=== PATIENT | female | born 1940 | race Caucasian/White ===

== ENCOUNTER 2023-11-21 12:08 | Outpatient (CLI) | payer MEDICARE, SELFPAY ==
[2023-11-21 12:24] LABS: Basophils Absolute Auto 0.1 K/mm3 (0.0-0.1); Basophils Percent Auto 0.8 % (0.2-1.2); Eosinophils Absolute Auto 0.2 K/mm3 (0-0.3); Eosinophils Percent Auto 2.6 % (0-4.4); Hematocrit 35.7 % (37.0-47.0); Hemoglobin 11.3 g/dL (12.0-15.0); Immature Granulocyte Absolute 0.01 K/mm3 (0.00-0.031); Immature Granulocyte Percent A 0.2 % (0-0.5); Immature Reticulocyte Fraction 8.3 % (3.0-15.9); Lymphocytes Absolute Auto 1.95 K/mm3 (0.9-3.2); Lymphocytes Percent Auto 31.6 % (18.3-44.2); Mean Corpuscular HGB Conc 31.7 g/dl (32-36); Mean Corpuscular Hemoglobin 30.6 pg (26-34); Mean Corpuscular Volume 96.7 fl (80-100); Mean Platelet Volume 9.5 fl (7.4-10.4); Monocytes Absolute Auto 0.5 K/mm3 (0.1-0.6); Monocytes Percent Auto 7.5 % (2.6-8.5); Neutrophils Absolute Auto 3.5 K/mm3 (1.3-6.7); Neutrophils Percent Auto 57.3 % (45.5-73.1); Platelet Count Result 237 k/mm3 (150-375); Red Blood Count 3.69 M/mm3 (4.2-5.4); Red Cell Distribution Width 14.4 % (11.5-14.5); Reticulocyte Hemoglobin Conten 34.3 pg (28.2-36.6); Reticulocyte Percent 1.17 % (0.7-4.3); Reticulocytes Absolute 0.04 10^6/uL (0.02-0.10); White Blood Count 6.2 K/mm3 (4.5-10.0)
[2023-11-21 18:08] LABS: Alanine Aminotransferase 15 U/L (6-35); Albumin Level 3.6 g/dL (3.5-5.1); Alkaline Phosphatase 77 U/L (38-126); Anion Gap 6 mmol/L (8-16); Aspartate Amino Transferase 25 U/L (14-36); Bilirubin,Total 0.3 mg/dL (0.2-1.3); Blood Urea Nitrogen 14 mg/dL (7-17); Calcium 8.8 mg/dL (8.4-10.2); Carbon Dioxide 23 mmol/L (22-30); Chloride 111 mmol/L (98-107); Estimated Glomerular Filt Rate 53; Glucose 76 mg/dL (65-110); Lactate Dehydrogenase 183 U/L (120-246); Sodium 140 mmol/L (137-145)
[2023-11-23 14:46] LABS: Folic Acid > 20.0 ng/mL (2.76->20)
[2023-11-23 15:22] LABS: Iron 78 ug/dL (37-170)
[2023-11-23 15:32] LABS: Percent Iron Saturation 24 % (20-50)
[2023-11-25 03:27] LABS: Methylmalonic Acid 247 nmol/L (87-318)
[2023-11-26 21:33] LABS: Haptoglobin 105 mg/dL (43-212)
[2023-11-29 09:52] LABS: Soluble Transferrin Receptor 1.23 mg/L (0.76-1.76)
== END 2023-11-21 12:09 | disposition home or self-care (01) ==
LOC: ANHLAB 12:11
PROVIDERS: Nurse Practitioner Family; Visit Provider Internal Medicine Hematology & Oncology
DX: D64.9 Anemia, unspecified (principal)
CPT/HCPCS: 36415; 80053; 82607; 82728; 82746; 83010; 83540; 83550; 83615; 83921; 84238; 85025; 85046; 86880

== ENCOUNTER 2024-02-26 09:27 | Outpatient (CLI) | payer MEDICARE, SELFPAY ==
[2024-02-26 09:40] LABS: Basophils Absolute Auto 0.1 K/mm3 (0.0-0.1); Eosinophils Absolute Auto 0.2 K/mm3 (0-0.3); Hematocrit 33.3 % (37.0-47.0); Hemoglobin 10.7 g/dL (12.0-15.0); Immature Granulocyte Absolute 0.01 K/mm3 (0.00-0.031); Immature Granulocyte Percent A 0.2 % (0-0.5); Lymphocytes Absolute Auto 2.11 K/mm3 (0.9-3.2); Lymphocytes Percent Auto 35.3 % (18.3-44.2); Mean Corpuscular HGB Conc 32.1 g/dl (32-36); Mean Corpuscular Hemoglobin 30.4 pg (26-34); Mean Corpuscular Volume 94.6 fl (80-100); Mean Platelet Volume 9.7 fl (7.4-10.4); Monocytes Absolute Auto 0.4 K/mm3 (0.1-0.6); Monocytes Percent Auto 7.2 % (2.6-8.5); Neutrophils Absolute Auto 3.1 K/mm3 (1.3-6.7); Neutrophils Percent Auto 52.3 % (45.5-73.1); Platelet Count Result 225 k/mm3 (150-375); Red Blood Count 3.52 M/mm3 (4.2-5.4); Red Cell Distribution Width 14.3 % (11.5-14.5)
[2024-02-26 11:55] LABS: Anion Gap 7 mmol/L (4-12); Blood Urea Nitrogen 20 mg/dL (7-17); Calcium 8.7 mg/dL (8.4-10.2); Carbon Dioxide 21 mmol/L (22-30); Chloride 112 mmol/L (98-107); Estimated Glomerular Filt Rate 53; Glucose 83 mg/dL (65-110); Potassium 3.5 mmol/L (3.4-5.0); Sodium 140 mmol/L (137-145)
[2024-02-26 12:27] LABS: Iron 89 ug/dL (37-170); Percent Iron Saturation 31 % (20-50)
== END 2024-02-26 09:28 | disposition home or self-care (01) ==
LOC: ANHLAB 09:28
PROVIDERS: Nurse Practitioner Family; Visit Provider Internal Medicine Hematology & Oncology
DX: D64.9 Anemia, unspecified (principal)
CPT/HCPCS: 36415; 80048; 82607; 82728; 83540; 83550; 85025

== ENCOUNTER 2024-06-30 12:02 | Outpatient (CLI) | payer MEDICARE, SELFPAY ==
[2024-06-30 12:18] LABS: Basophils Percent Auto 0.7 % (0.2-1.2); Eosinophils Absolute Auto 0.1 K/mm3 (0-0.3); Eosinophils Percent Auto 1.9 % (0-4.4); Hematocrit 33.9 % (37.0-47.0); Hemoglobin 10.8 g/dL (12.0-15.0); Immature Granulocyte Absolute 0.01 K/mm3 (0.00-0.031); Immature Granulocyte Percent A 0.2 % (0-0.5); Lymphocytes Absolute Auto 1.63 K/mm3 (0.9-3.2); Lymphocytes Percent Auto 28.2 % (18.3-44.2); Mean Corpuscular HGB Conc 31.9 g/dl (32-36); Mean Corpuscular Hemoglobin 30.3 pg (26-34); Mean Corpuscular Volume 95.2 fl (80-100); Mean Platelet Volume 9.2 fl (7.4-10.4); Monocytes Absolute Auto 0.4 K/mm3 (0.1-0.6); Monocytes Percent Auto 7.6 % (2.6-8.5); Neutrophils Absolute Auto 3.5 K/mm3 (1.3-6.7); Neutrophils Percent Auto 61.4 % (45.5-73.1); Platelet Count Result 238 k/mm3 (150-375); Red Blood Count 3.56 M/mm3 (4.2-5.4); Red Cell Distribution Width 13.9 % (11.5-14.5); White Blood Count 5.8 K/mm3 (4.5-10.0)
[2024-06-30 13:59] LABS: Iron 32 ug/dL (37-170)
[2024-06-30 14:09] LABS: Anion Gap 7 mmol/L (4-12); Blood Urea Nitrogen 17 mg/dL (7-17); Calcium 8.3 mg/dL (8.4-10.2); Carbon Dioxide 26 mmol/L (22-30); Chloride 108 mmol/L (98-107); Estimated Glomerular Filt Rate > 60; Glucose 82 mg/dL (65-110); Potassium 3.1 mmol/L (3.4-5.0); Sodium 141 mmol/L (137-145)
[2024-06-30 14:21] LABS: Percent Iron Saturation 12 % (20-50)
[2024-06-30 15:48] LABS: Folic Acid > 20.0 ng/mL (2.76->20)
== END 2024-06-30 12:03 | disposition home or self-care (01) ==
LOC: ANHLAB 12:04
PROVIDERS: Nurse Practitioner Family; Visit Provider Internal Medicine Hematology & Oncology
DX: D64.9 Anemia, unspecified (principal)
CPT/HCPCS: 36415; 80048; 82607; 82728; 82746; 83540; 83550; 85025

== ENCOUNTER 2024-10-10 10:45 | Outpatient (CLI) | payer MEDICARE, SELFPAY ==
[2024-10-10 11:02] LABS: Hematocrit 35.1 % (37.0-47.0); Hemoglobin 11.1 g/dL (12.0-15.0); Mean Corpuscular HGB Conc 31.6 g/dl (32-36); Mean Corpuscular Hemoglobin 30.2 pg (26-34); Mean Corpuscular Volume 95.6 fl (80-100); Mean Platelet Volume 9.4 fl (7.4-10.4); Platelet Count Result 233 k/mm3 (150-375); Red Blood Count 3.67 M/mm3 (4.2-5.4); Red Cell Distribution Width 14.6 % (11.5-14.5); White Blood Count 7.3 K/mm3 (4.5-10.0)
[2024-10-10 11:26] LABS: Anion Gap 7 mmol/L (4-12); Blood Urea Nitrogen 20 mg/dL (7-17); Calcium 8.8 mg/dL (8.4-10.2); Carbon Dioxide 24 mmol/L (22-30); Chloride 109 mmol/L (98-107); Estimated Glomerular Filt Rate 52; Glucose 78 mg/dL (65-110); Potassium 3.7 mmol/L (3.4-5.0); Sodium 140 mmol/L (137-145)
--- OUTSIDE RECORDS SUMMARY | 2024-10-10 11:27 | XMS_ITS | Encounter Summary ---
Author Organization [facility] Address [address] [facility] [place] [address] Care Team Providers Care Ship Wirer Name Role Phone Gaviota Edmonds MD Primary Care Provider [phone] Encounter Details Date Type Department Care Team (Late st Contact Info) Description 04/19/2020 Lab Requisition [facility] [address] [facility], [place] [id number] Marielle Rodriguez DO [address] [facility] 3 [place] [address] Social History Tobacco Use Types Packs/Day Years Used Date Smoking Tobacco: Never Smokeless Tobacco: Never Alcohol Use Standard Drinks/Week Comments No 0 (1 standard drink = 0.6 oz pur e alcohol) Sex and Gender Information Value Date Recorded Sex Assigned at Not on file Gender Identity Not on file Sexual Orientation Not on file documented as of this encounter Plan of Treatment Not on file documented as of this encounter Procedures Procedure Name Priority Date/Time Associated Diagnosis Comments DERMATOPATHOLOGY Routine 04/15/2020 12:0 0 AM CDT documented in this encounter Results * DERMATOPATHOLOGY (04/15/2020 12:00 AM CDT) Case Report Dermatopathology Report Case: [id number] Authorizing Provider: Marielle Rodriguez DO Collected: 04/15/2020 12:00 AM Ordering Location: [facility] Received: 04/19/2020 10:30 AM Pathologist: Horace Salcedo MD Specimens: A) - Skin, right upper arm B) - Skin, left elbow 0 12:00 PM CDT DERMATOPATHOLOGY LABORATORY Final Diagnosis Specimen A. SKIN, right upper arm: ACTINIC KERATOSIS, LICHENOID (L57.0) Specimen B. SKIN, left elbow: BENIGN VERRUCOUS KERATOSIS, INFLAMED (L82.1) 0 12:00 PM [facility] DERMATOP[facility] Clinical History A-B: R/O NMSC. 0 12:00 PM T DERMATOPATHOLOGY LABORATORY Gross Description Specimen A: Received is one formalin filled container labeled with the patient's name and designated right upper arm. The specimen consists of a shave measuring [id number]. Jar 0. Specimen B: Received is one formalin filled container labeled with the patient's name and designated left elbow. The specimen consists of a shave measuring [id number]. Jar 0. 0 12:00 PM [facility] DERMATOPATHOLOGY [facility]ORATORY Microscopic Description Specimen A. SKIN, right upper arm: There is focal parakeratosis. The lower half of the epidermis shows disorderly maturation of keratinocytes with nuclear pleomorphism. The dermis shows a band-like, chronic inflammatory infiltrate with occasional apoptotic keratinocytes and some basal vacuolar alteration. Specimen B. SKIN, left elbow: Sections show hyperkeratosis, papillomatosis, hypergranulosis, and acanthosis. Inflammatory cells are present within the dermis. These histological findings can be seen in a verruca vulgaris or a seborrheic keratosis. 0 12:00 PM T DERMATOPATHOLOGY LABORATORY Disclaimer An external and internal positive and negative controls are appropriate for the histochemical, immunohistochemical and immunofluorescence stain(s) in this case (if any), except where stated explicitly. The performance characteristics of the stain(s) cited in this report were developed and its performance characteristic determined by the Dermatopathology Laboratory at [facility], directed by Dr. Brice Salcedo. These tests need not be, and therefore are not, approved by the [place] Food and Drug Administration. The tests are used for clinical purposes. Billing Codes Specimen Charges Stain Charges 86127 65293 1 1 0 12:00 PM CDT DERMATOPATHOLOGY LABORATORY Embedded Images 0 12:00 PM T DERMATOPATHOLOGY LABORATORY Pathology/Cytology TISSUE SPECIMEN FROM SKIN / Unknown 04/15/2020 04/19/2020 10:30 AM CDT Miscellaneous samples (specimen) TISSUE SPECIMEN FROM SKIN / Unknown 04/15/2020 04/19/2020 10:30 AM CDT Marielle Ruth Rodriguez DO LAB - PATHOLOGY/C YTOLOGY ORDERABLES DERMATOPATHOLOGY LABORATORY [facility] - Department of Dermatology Patient Liaison Basom/[address] [phone] documented in this encounter Visit Diagnoses Not on filedocumented in this encounter Care Teams Ship Wirer Relationship Specialty Start Date End Date Gaviota Edmonds MD [address] [place] [phone] PCP - General 07/14/13 documented as of this encounter
--- OUTSIDE RECORDS SUMMARY | 2024-10-10 11:27 | XMS_ITS | Continuity of Care Document ---
Author Organization [facility] Address [address] [place] [address] [address] [place] [address] Phone Care Team Providers Care Heating Element Winder Name Role Phone Malu Allison Unavailable Unavailable Advance Directives Directive Yes / No Effective Date File Name No Information Encounters Encounter Description Practice Location Reason(s) For Visit Diagnoses Date Provider Providers Copied on Encounter [facility], [address], [place], [place], [id number], [place] tel:[phone] [facility] [place] No Information [address] [facility] , [address], [place], [address], [place]. tel:[phone] Family History Family Member Type Diagnosis Age At Onset No Information Payers Payer name Insurance type Covered alliance party ID Authoriza tigerber(s) [employer] SOI [id number] Social History Type Description Quantity Date Captured Comments Sex Female Smoking Status No Information Chief Complaint And Reason For Visit No Information Reason For Referral Reason For Referral No Information History Of Present Illness Encounter Date Complaint History Of Prese nt Illness No Information Functional Status Date Functional Assessmen t No Information Instructions Date Instruction Additional Infor mation No Information Assessments Type Assessment Date No Information Patient Care Teams Name Effective Dates (start - stop) Status Members No Information
--- OUTSIDE RECORDS SUMMARY | 2024-10-10 11:28 | XMS_ITS | CONTINUITY OF CARE DOCUMENT ---
Author Name andrew andriypaulina Address Unknown Organization [facility] Address [address] [facility] [address] [place] [address] Phone [phone] Care Team Providers Care Hvac Service Technician Name Role Phone Rodrigue CORREIA, Bony Unavailable HOUSTON MARTIN MD Unavailable [phone] PROBLEMS Condition Status Date Provider Notes Cardiology examination active Isaac Ahmedzai Hypertension active Isaac Ahmedzai Abnormal EKG active Isaac Ahmedzai CKD active Isaac Ahmedzai Hypothyroidism active Isaac Ahmedzai ENCOUNTERS Date Type Provider Location Encounter Diag nosis - In-person encounter Office Visit Bony Husain MD [facility] Cardiology examinationHypothyroidismCKDAbnormal EKGHypertension VITAL SIGNS Date Observation Value Provider Body Mass Index (Ratio) 24.27 kg/m2 Arun Husain MD blood pressure, cuff size regular Ke rri Nely blood pressure, diastolic 86 mm[Hg] Ke rri Nely blood pressure, systolic 162 mm[Hg] Mellisa Mckay oxygen saturation, oximetry 99 % Anaid Mckay pulse rate 67 /min Anaid navaser weight E&M 137 [lb_av] Anaid navaser height E&M 63 [in_i] Anaid navaser ALLERGIES Allergy Name Onset Date Reaction Criticality Status SHELLFISH Low Criticality active TERRAMYCIN Low Criticality active HUMBERTO Low Criticality active PCN Low Criticality active AMOXICILLIN Low Criticality active KEFLEX Low Criticality active HISTORY OF MEDICATION USE Medication Status Instructions Dates Provider Indications Com ments ferrous sulfate 325 mg (65 mg iron) tablet active TAKE 1 TABLET BY MOUTH EVERY DAY Anaid Mckay calcitriol 0.25 mcg capsule active TAKE 1 CAPSULE BY MOUTH DAILY Anaid Mckay ergocalciferol (vitamin D2) 1,250 mcg (50,000 unit) capsule active TAKE 1 CAPSULE BY MOUTH ONCE A WEEK Anaid Mckay losartan 25 mg tablet active Take 1 tablet by mouth once a day Anaid Mckay Synthroid 50 mcg tablet active Take 1 tablet by mouth once daily Anaid Mckay INSURANCE PROVIDERS Payer name Policy type / Coverage type [place] red democrat ID [employer] MEDICARE [place]IL[place] PPO Medicare [id number] ADVANCE DIRECTIVES Name Date DISCUSSED - NO DECISION MADE TREATMENT PLAN Date Name Performer Cardiology:This visi t has been a part of the consistent, comprehensive, and ongoing management of the chronic medical condition(s) listed above for the patient. Her updated medication list for this problem includes: Losartan 25 Mg Tablet (Losartan) ..... Take 1 tablet by mouth once a day BP today: 162/86 Bony Husain MD Cardiology: H er updated medication list for this problem includes: Synthroid 50 Mcg Tablet (Levothyroxine) ..... Take 1 tablet by mouth once daily Bony Husain MD Cardiology Bony Husain MD Cardiology: O rders: C omplete Echo (00200) Bony Husain MD Date Name Complete Echo HISTORY OF PROCEDURES Procedure Date Procedure Name Provider Procedure Notes S tatus Complex e/m visit add on Bony Husain MD completed EKG Bony Husain MD completed
--- OUTSIDE RECORDS SUMMARY | 2024-10-10 11:28 | XMS_ITS ---
Author Organization [facility] Address [address] [facility] 61 [facility] [address] [place] [address] Care Team Providers Care Plug Paster Name Role Phone Rodrigue Eric Unavailable [phone] MEDICATIONS Medication SIG (Take, Route, Frequency, Duration) Notes Start Date End Date Status Ergocalciferol 1.25 MG (06041 UT) 1 capsule Orally twice a week for 90 day(s) 10/08/2024 07/05/2025 Active Encounters Encounter Location Date Provider Diagnosis [place] [facility] [address] [facility] 15 [place] [address] 10/08/2024 Eric Husain PLAN OF TREATMENT Medication Medication Name Sig Start Date Stop Date Notes Ergocalciferol 1.25 MG (5000 0 UT) 1 capsule Orally twice a week for 90 day(s) 10/08/2024 07/05/2025 Next Appt Details Provider Name:Eric Husain , 12/03/2024 03:30:00 PM, [address] [facility], [facility] [address], [place], [address], Progress Notes * CATAlly KIRANDOB: (84 yo F)Acc No.[id number]:10/08/2024 Patient: Ally SHELTON :1940 Age:84 Y Sex:Female Address:[address] [place] [address] * Refills Start Ergocalciferol Capsule, 1.25 MG (46148 UT), Orally, 24, 1 capsule, twice a week, 90 day(s), Refills=2 * * Date:
--- OUTSIDE RECORDS SUMMARY | 2024-10-10 11:28 | XMS_ITS | Patient Health Record ---
Author Organization [facility] Address [address] [place] [address] Care Team Providers Care Vice President Marketing & Development Name Role Phone Eric Husain Unavailable [phone] REASON FOR REFERRAL No Information MEDICATIONS Medication SIG (Take, Route, Frequency, Duration) Notes Start Date End Date Status Calcitriol 0.25 MCG 1 capsule Orally Onc e a day for 90 day(s) 08/06/2024 05/03/2025 Active Losartan Potassium 25 MG 1 tablet Orally Once a day for 90 day(s) 08/06/2024 Active Ergocalciferol 1.25 MG (93926 UT) 1 capsule Orally twice a week for 90 day(s) 10/08/2024 07/05/2025 Active PROBLEMS Problem Type ICD Code Onset Dates Problem Status W/U Status Risk SNOMED Code Notes Problem Essential (primary) hypertension (I10) Active confirmed Essential hypertension (33889266) Problem Gout, unspecified (M10.9) Active confirmed Gout (33542146) Problem 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) Active confirmed Primary generalised osteoarthritis (923694733) Problem Other osteoporosis without current pathological fracture (M81.8) Active confirmed Osteoporosi s (54305451) Problem Renal osteodystrophy (N25.0) Active confirmed Renal osteodystrophy (05989775) Problem 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) Active confirmed Congenital stenosis of esophagus (145688654) Problem Edema, unspecified (R60.9) Active confirmed Edema (28900279) Problem Other proteinuria (R80.8) Active confirmed Proteinuria (97583887) Problem Chronic kidney disease, stage 3a (N18.31) Active confirmed Chronic kidney disease stage 3A (disorder) (446595412) Problem Chronic kidney disease, stage 3b (N18.32) Active confirmed Chronic kidney disease stage 3B (disorder) (751045651) Encounters Encounter Location Date Provider Diagnosis [facility] [address] [place] [address] 02/15/2024 Eric Husain Chronic kidney disea se, stage 3a N18.31 ; Essential (primary) hypertension I10 ; Edema, unspecified R60.9 ; Gout, unspecified M10.9 ; Other proteinuria R80.8 and Renal osteodystrophy N25.0 [facility] [address] [place] [address] 03/14/2024 Eric Husain Chronic kidney disea se, stage 3a N18.31 ; Essential (primary) hypertension I10 ; Edema, unspecified R60.9 ; Gout, unspecified M10.9 ; Other proteinuria R80.8 and Renal osteodystrophy N25.0 [facility] [address] [place] [address] 05/30/2024 Eric Husain Chronic kidney disea se, stage 3a N18.31 ; Essential (primary) hypertension I10 ; Edema, unspecified R60.9 ; Gout, unspecified M10.9 ; Other proteinuria R80.8 and Renal osteodystrophy N25.0 [facility] [address] [place] [address] 08/06/2024 Eric Husain Chronic kidney disea se, stage 3b N18.32 ; Essential (primary) hypertension I10 ; Edema, unspecified R60.9 ; Gout, unspecified M10.9 ; Other proteinuria R80.8 and Renal osteodystrophy N25.0 [facility] [address] [place] [address] 10/08/2024 Eric Husain Chronic kidney disea se, stage 3a N18.31 ; Primary generalized (osteo)arthritis M15.0 ; Congenital stenosis and stricture of esophagus Q39.3 ; Abnormal radiologic findings on diagnostic imaging of unspecified kidney R93.429 and Other osteoporosis without current pathological fracture M81.8 [facility] [address] [place] [address] 10/08/2024 Eric Husain [facility] [address] [place] [address] 08/06/2024 Eric Husain ASSESSMENTS Encounter Date Diagnosis Assessment Notes Treatment Notes Treatment Clinical Notes Section Notes 02/15/2024 Chronic kidney disease, stage 3a (ICD-10 - N18.31) 03/14/2024 Chronic kidney disease, stage 3a (ICD-10 - N18.31) 05/30/2024 Chronic kidney disease, stage 3a (ICD-10 - N18.31) 08/06/2024 Chronic kidney disease, stage 3b (ICD-10 - N18.32) 10/08/2024 Primary generalized (osteo)arthritis (ICD-10 - M15.0) 10/08/2024 Chronic kidney disease, stage 3a (ICD-10 - N18.31) 10/08/2024 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) 08/06/2024 Essential (primary) hypertension (ICD-10 - I10) 05/30/2024 Essential (primary) hypertension (ICD-10 - I10) 03/14/2024 Essential (primary) hypertension (ICD-10 - I10) 02/15/2024 Essential (primary) hypertension (ICD-10 - I10) 02/15/2024 Edema, unspecified (ICD-10 - R60.9) 03/14/2024 Edema, unspecified (ICD-10 - R60.9) 05/30/2024 Edema, unspecified (ICD-10 - R60.9) 08/06/2024 Edema, unspecified (ICD-10 - R60.9) 10/08/2024 Abnormal radiologic findings on diagnostic imaging of unspecified kidney (ICD-10 - R93.429) 10/08/2024 Other osteoporosis without current pathological fracture (ICD-10 - M81.8) 08/06/2024 Gout, unspecified (ICD-10 - M10.9) 05/30/2024 Gout, unspecified (ICD-10 - M10.9) 02/15/2024 Gout, unspecified (ICD-10 - M10.9) 03/14/2024 Gout, unspecified (ICD-10 - M10.9) 02/15/2024 Other proteinuria (ICD-10 - R80.8) 05/30/2024 Other proteinuria (ICD-10 - R80.8) 03/14/2024 Other proteinuria (ICD-10 - R80.8) 08/06/2024 Other proteinuria (ICD-10 - R80.8) 08/06/2024 Renal osteodystrophy (ICD-10 - N25.0) 05/30/2024 Renal osteodystrophy (ICD-10 - N25.0) 02/15/2024 Renal osteodystrophy (ICD-10 - N25.0) 03/14/2024 Renal osteodystrophy (ICD-10 - N25.0) PLAN OF TREATMENT Next Appt Details Provider Name:Eric Husain , 12/03/2024 03:30:00 PM, [address] [facility] [address], [place], [address],
--- OUTSIDE RECORDS SUMMARY | 2024-10-10 11:28 | XMS_ITS | Referral Summary ---
Author Organization [facility] Address [address] [facility] [place] [address] Care Team Providers Care Anesthetic Assistant Name Role Phone Gaviota Edmonds MD Primary Care Provider [phone] Source Comments [facility],non-owned Affiliates and Associated Physician Practices is amultiple site organization consisting of ambulatory clinics and hospital sitesin [place] and [place]. This disclosure is being madepursuant to the Care Everywhere program and may not contain all information available regarding this patient. Last updated 18.[facility] [employer] Allergies Active Allergy Reactions Criticality Noted Date Comments Amoxicillin Rash Medium 07/14/2013 Cephalexin Rash Medium 07/14/2013 Erythromycin Rash Medium 07/14/2013 Oxytetracycline Rash Medium 07/14/2013 Penicillins Rash Medium 02/12/2023 Medications * Be aware that medications may not be up to date on this document. Alwaysverify current medications with the patient. Medication Sig Dispensed Refills Start Date End Date Status levothyroxine (Synthroid) 50 MCG tablet Take 1 (one) tablet by mouth daily before breakfast Active acetaminophen-codein e (Tylenol #2) 300-15 MG tablet Take 1 (one) tablet by mouth every 4 hours as needed for Pain 28 tablet 02/21/2023 Active acetaminophen-codein e (Tylenol #2) 300-15 MG tablet Take 1 (one) tablet by mouth every 6 hours as needed for Pain 35 tablet 03/01/2023 Active Active Problems Problem Noted Date Diagnosed Date Other fracture of right femu r, initial encounter for closed fracture 02/12/2023 Acquired hypothyroidism 02/12/2023 Osteoarthritis of both hands 02/12/2023 Lymphedema of both lower extremities 02/12/2023 Fall, initial encounter 02/12/2023 Acute right hip pain 02/12/2023 Closed displaced fracture of right femoral neck 02/12/2023 Malignant neoplasm of uterus 07/14/2013 Nausea with vomiting 07/14/2013 Social History Tobacco Use Types Packs/Day Years Used Date Smoking Tobacco: Never Smokeless Tobacco: Never Tobacco Cessation:Counseling Given: Not Answered Alcohol Use Standard Drinks/Week Comments No 0 (1 standard drink = 0.6 oz pur e alcohol) AUDIT-C Answer Date Recorded Q1: How often do you have a drink containing alcohol? Never 02/13/2023 Q2: How many drinks containi ng alcohol do you have on a typical day when you are drinking? Patient does not drink Q3: How often do you have si x or more drinks on one occasion? Never 02/13/2023 Overall Financial Resource Strain (CARDIA) Answe r Date Recorded How hard is it for you to pa y for the very basics like food, housing, medical care, and heating? Not hard at all 02/13/2023 PHQ-2 Answer Date Recorded Patient Health Questionnaire-2 Score 0 08/02/2023 [facility] - Occupational Stress Questionnaire Answer Date Recorded Do you feel stress - tense, restless, nervous, or anxious, or unable to sleep at night because your mind is troubled all the time - these days? Not at all 02/13/2023 Hunger Vital Sign Answer Date Recorded Within the past 12 months, y ou worried that your food would run out before you got the money to buy more. Never true 02/14/20 23 Within the past 12 months, t he food you bought just didn't last and you didn't have money to get more. Never true 02/13/2023 PRAPARE - Transportation Answer Date Re corded In the past 12 months, has l ack of transportation kept you from medical appointments or from getting medications? No 02/01 In the past 12 months, has l ack of transportation kept you from meetings, work, or from getting things needed for daily living? No 02/13/2023 Housing Stability Vital Sign Answer Chon e Recorded In the last 12 months, was t here a time when you were not able to pay the mortgage or rent on time? No 02/13/2023 In the last 12 months, how many places have you lived? 1 02/13/2023 In the last 12 months, was t here a time when you did not have a steady place to sleep or slept in a long-term (including now)? 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 No 02/13/2023 Is person blind or have serious difficulty seein g? No 02/13/2023 Does person have serious dif ficulty walking/climbing stairs? No 02/13/2023 Does person have difficulty dressing/bathing? No 02/13/2023 Does person have difficulty doing errands alone? No 02/13/2023 Cognitive Status Response Date of Assessm ent Does person have difficulty concentrating/remembering/making decisions? 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 Device Identifier Shelf Expiration Date Model / Serial / Lot Hip Stem- Standard Offset Implanted:Qty: 1 on 02/13/2023 by Tommy Becker MD at [facility] 11/12/2027 [id number] / / [id number] [employer] [place] Head Bipolar Component Implanted:Qty: 1 on 02/13/2023 by Tommy Becker MD at [facility] [id number] / / [id number] Head Fem +0mm Ofst Tpr 28mm Hip Blx D Implanted:Qty: 1 on 02/13/2023 by Tommy Becker MD at [facility] [employer] [id number]- [id number] / / [id number] Advance Directives * Full Code (Latest Code Status on File) Date Activated Date Inactivated Comments 02/12/2023 3:43 PM 02/15/2023 7:44 PM Care Teams Anesthetic Assistant Relationship Specialty Start Date End Date Gaviota Edmonds MD [address] [place] [phone] PCP - General 07/14/13
--- OUTSIDE RECORDS SUMMARY | 2024-10-10 11:28 | XMS_ITS | Patient Health Summary ---
Author Organization [facility] Address [address] [place] [address] Care Team Providers Care Blade Operator Name Role Phone Gavioat Edmonds MD Primary Care Provider [phone] Note from [facility],non-owned Affiliates and Associated Physician Practices is amultiple site organization consisting of ambulatory clinics and hospital sitesin [place], [place], [place] and [place]. This disclosure is being madepursuant to the Care Everywhere program and may not contain all information available regarding this patient. Last updated 18.[facility] Allergies * Amoxicillin(Rash) -Medium Criticality * Cephalexin(Rash) -Medium Criticality * Erythromycin(Rash) -Medium Criticality * Oxytetracycline(Rash) -Medium Criticality * Penicillins(Rash) -Medium Criticality Medications * Be aware that medications may not be up to date on this document. Alwaysverify current medications with the patient. * levothyroxine (Synthroid) 50 MCG tablet Take 1 (one) tablet by mouth daily before breakfast * acetaminophen-codeine (Tylenol #2) 300-15 MG tablet(Started 02/21/2023) Take 1 (one) tablet by mouth every 4 hours as needed for Pain * acetaminophen-codeine (Tylenol #2) 300-15 MG tablet(Started 03/01/2023) Take 1 (one) tablet by mouth every 6 hours as needed for Pain Active Problems Problem Noted Date Diagnosed Date [...] Recorded Patient Health Questionnaire-2 Score 0 08/02/2023 [facility] - Occupational Stress [...] place to sleep or slept in a usp (including now)? No 02/13/2023 Sex and Gender [...] 61.2 kg (135 lb) 08/02/2023 8:52 AM LINUX UNIX ENGINEER Height 162.6 cm (5' 4 ) 05/03/2023 9:04 AM CDT Body Mass Index 23.17 05/03/2023 9:04 AM CDT Medical Devices Implanted Type Area Contact Center Analyst Device Identifier Shelf Expiration Date Model / Serial / Lot Hip Stem- Standard Offset Implanted:Qty: 1 on 02/13/2023 by Tommy Becker MD at [facility] [place] [facility] 11/12/2027 [id number] / / [id number] [employer] [place] Head Bipolar Component Implanted:Qty: 1 on 02/13/2023 by Tommy Becker MD at [facility] [place] [facility] [id number] / / [id number] Head Fem +0mm Ofst Tpr 28mm Hip Blx D Implanted:Qty: 1 on 02/13/2023 [facility] [employer] [id number] / / [id number] Procedures * XR HIP RIGHT 2VW OR MORE(Performed 08/02/2023) Performed for Closed fracture of neck of right femur with routine healing, subsequent encounter * XR HIP RIGHT 2VW OR MORE(Performed 05/03/2023) Performed for Closed fracture of neck of right femur with routine healing, subsequent encounter * XR HIP RIGHT 2VW OR MORE(Performed 03/01/2023) Performed for Other fracture of right femur, initial encounter for closed fracture (HCC) * BASIC METABOLIC PANEL (CALCIUM TOTAL)(Performed 02/15/2023) Performed for Fall, initial encounter, Acute right hip pain, Closed displaced fracture of right femoral neck (HCC) * CBC W/O DIFFERENTIAL(Performed 02/15/2023) Performed for Fall, initial encounter, Acute right hip pain, Closed displaced fracture of right femoral neck (HCC) * CBC W/O DIFFERENTIAL(Performed 02/14/2023) Performed for Fall, initial encounter, Acute right hip pain, Closed displaced fracture of right femoral neck (HCC) * BASIC METABOLIC PANEL (CALCIUM TOTAL)(Performed 02/14/2023) Performed for Fall, initial encounter, Acute right hip pain, Closed displaced fracture of right femoral neck (HCC) * XR HIP RIGHT 2VW OR MORE(Performed 02/13/2023) Performed for Other fracture of right femur, initial encounter for closed fracture (HCC) * FL SHAN SURGERY(Performed 02/13/2023) Performed for Other fracture of right femur, initial encounter for closed fracture (HCC) * CARDIAC EKG ORDER(Performed 02/13/2023) * HEMIARTHROPLASTY HIP(Performed 02/13/2023) Performed for Type I or II open fracture of neck of right femur, initial encounter (HCC) * ENDOTRACHEAL TUBE NOTE(Performed 02/13/2023) * BLOOD TYPE VERIFICATION(Performed 02/13/2023) * PHOSPHORUS BLOOD(Performed 02/13/2023) Performed for Fall, initial encounter, Acute right hip pain, Closed displaced fracture of right femoral neck (HCC) * MAGNESIUM BLOOD(Performed 02/13/2023) Performed for Fall, initial encounter, Acute right hip pain, Closed displaced fracture of right femoral neck (HCC) * CBC W/O DIFFERENTIAL(Performed 02/13/2023) Performed for Fall, initial encounter, Acute right hip pain, Closed displaced fracture of right femoral neck (HCC) * BASIC METABOLIC PANEL (CALCIUM TOTAL)(Performed 02/13/2023) Performed for Fall, initial encounter, Acute right hip pain, Closed displaced fracture of right femoral neck (HCC) * TYPE + SCREEN PANEL(Performed 02/12/2023) Performed for Fall, initial encounter, Acute right hip pain, Closed displaced fracture of right femoral neck (HCC) * EKG 12-LEAD(Performed 02/12/2023) Performed for Fall, initial encounter, Acute right hip pain * XR PELVIS W RIGHT HIP 2VW(Performed 02/12/2023) Performed for Fall, initial encounter, Acute right hip pain * XR FEMUR RIGHT 2VW(Performed 02/12/2023) Performed for Fall, initial encounter, Acute right hip pain * PTT [facility](Performed 02/12/2023) * PT-INR [facility](Performed 02/12/2023) * COMPREHENSIVE METABOLIC PANEL(Performed 02/12/2023) * CBC W AUTO DIFFERENTIAL(Performed 02/12/2023) * DERMATOPATHOLOGY(Performed 02/01/2022) * DERMATOPATHOLOGY(Performed 10/11/2021) * DERMATOPATHOLOGY(Performed 08/02/2021) * DERMATOPATHOLOGY(Performed 06/07/2021) * DERMATOPATHOLOGY(Performed 04/28/2021) * DERMATOPATHOLOGY(Performed 04/15/2020) * PATHOLOGY TISSUE(Performed 08/14/2013) * BASIC METABOLIC PANEL (CALCIUM TOTAL)(Performed 08/04/2013) Results * XR HIP RIGHT 2VW OR MORE (08/02/2023 8:44 AM LINUX UNIX ENGINEER) Only the most recent of4 resultswithin the time period is included. Anatomical Region Laterality Modality Pelvis, Lower Extremity [facility] 08/02/2023 8:46 AM LINUX UNIX ENGINEER Impressions 08/02/2023 9:07 AM LINUX UNIX ENGINEER IMPRESSION: Unchanged right hip hemiarthroplasty. Report dictated by Jhonathan Magallanes M.D. (compensation vice president) 08/02/2023 8:47 AM IBonnie MD have personally reviewed and interpreted this examination/study. > Interpreting Provider: Bonnie Cheung MD on 08/02/2023 9:07 AM Narrative 08/02/2023 9:07 AM LINUX UNIX ENGINEER PROCEDURE: XR HIP RIGHT 2VW OR MORE, DATE/TIME OF EXAM: 08/02/2023 8:44 AM, LOCATION [facility] INDICATION: S72.001D: Closed fracture of neck of right femur with routine healing, subsequent encounter ADDITIONAL CLINICAL INFORMATION: Ordering Provider Reason For Exam: fracture COMPARISON: Right hip radiographs 05/03/2023 FINDINGS: There is redemonstration of a right hip hemiarthroplasty. The hardware appears intact and without evidence of loosening or periprosthetic fracture. The osseous alignment is stable compared to prior. Surgical clips overlie the lower pelvis. Procedure Note Bonnie Cheung MD - 08/02/2023 PROCEDURE: XR HIP RIGHT 2VW OR MORE, DATE/TIME OF EXAM: 38:44 AM, LOCATION [facility] INDICATION: S72.001D: Closed fracture of neck of right femur with routine healing, subsequent encounter ADDITIONAL CLINICAL INFORMATION: Ordering Provider Reason For Exam: fracture COMPARISON: Right hip radiographs 05/03/2023 FINDINGS: There is redemonstration of a right hip hemiarthroplasty. The hardware appears intact and without evidence of loosening or periprosthetic fracture. The osseous alignment is stable compared to prior. Surgicalclips overlie the lower pelvis. IMPRESSION: Unchanged right hip hemiarthroplasty. Report dictated by Jhonathan Magallanes M.D. (compensation vice president) 08/02/2023 8:47 AM IBonnie MD have personally reviewed and interpreted this examination/study. > Interpreting Provider: Bonnie Cheung MD on 08/02/2023 9:07 AM Tommy Becker MD DIAGNOSTIC IMAGING ORDERABLES * (ABNORMAL) BASIC METABOLIC PANEL (CALCIUM TOTAL) (02/15/2023 12:43 AM CDT) Only the most recent of4 resultswithin the time period is included. BUN 17 7 - 26 mg/dL 02/15/2023 1:16 AM [facility] Creatinine 1.02(H) 0.56 - 0.96 mg/dL 02/15/2023 1:16 AM [facility] Sodium 133(L) 136 - 145 mmol/L 02/15/2023 1:16 AM [facility] Potassium 3.7 3.5 - 4.5 mmol/L 02/15/2023 1:16 AM [facility] Chloride 108(H) 98 - 107 mmol/L 02/15/2023 1:16 AM [facility] CO2 23 22 - 29 mmol/L 02/15/2023 1:16 AM [facility] Glucose 120(H) 70 - 115 mg/dL 02/15/2023 1:16 AM [facility] Calcium 7.9(L) 8.4 - 10.2 mg/dL 02/15/2023 1:16 AM [facility] Anion Gap 6(L) 8 - 18 02/15/2023 1:16 AM [facility] BUN/Creatinine Ratio 17 7 - 23 02/15/2023 1:16 AM [facility] Osmolality Calculated 279 270 - 300 mOsm/kg 02/15/2023 1:16 AM [facility] eGFR by CKD-EPI 55(L) >=90 mL/min/1.7 3 m2 02/15/2023 1:16 AM [facility] Blood BLOOD SPECIMEN / Unknown Lab Venipuncture / Unknown 02/15/2023 12:43 AM CDT 02/15/2023 12:47 AM CDT Mounika HORTON LAB - CHEMISTRY OR DERABLES [facility] [address] [place] [address], [facility] [phone] * (ABNORMAL) CBC W/O DIFFERENTIAL (02/15/2023 12:42 AM CDT) Only the most recent of3 resultswithin the time period is included. WBC 8.2 3.5 - 10.5 10 3/uL 02/15/2023 1:08 AM [facility] RBC 2.94(L) 3.80 - 5.20 10 6/uL 02/15/2023 1:08 AM [facility] Hemoglobin 8.7(L) 12.0 - 15.6 g/dL 02/15/2023 1:08 AM [facility] Hematocrit 27.1(L) 35.0 - 45.0 % 02/15/2023 1:08 AM [facility] MCV 92.2 80.7 - 98.3 fL 02/15/2023 1:08 AM [facility] MCH 29.6 26.7 - 34.0 pg 02/15/2023 1:08 AM CDT [facility] MCHC 32.1 30.8 - 35.9 g/dL 02/15/2023 1:08 AM CDT [facility] RDW-SD 47.6 36.0 - 50.0 fL 02/15/2023 1:08 AM CDT [facility] RDW-CV 14.0 11.2 - 14.8 % 02/15/2023 1:08 AM CDT [facility] Platelet Count 176 150 - 400 10 3/uL 02/15/2023 1:08 AM CDT [facility] MPV 10.0 9.4 - 12.9 fL 02/15/2023 1:08 AM CDT [facility] nRBC Absolute 0.00 0 10 3/uL 02/15/2023 1:08 AM CDT [facility] nRBC Auto 0.0 0 /100 WBC 02/15/2023 1:08 AM CDT [facility] Blood BLOOD SPECIMEN / Unknown Lab Venipuncture / Unknown 02/15/2023 12:42 AM CDT 02/15/2023 12:48 AM CDT Mounika HORTON LAB - HEMATOLOGY O RDERABLES Performing Organization Address City/[facility]/ZIP Co de Phone Number [address] [address], [facility] [phone] * FL SHAN SURGERY (02/13/2023 4:25 PM CDT) Narrative [facility] - 02/13/2023 4:26 PM CDT Fluoroscopy was used for this exam in the OR. Please see the Operative report. Tommy Becker MD FLUOROSCOPY ORDERAB LES [facility] * CARDIAC EKG ORDER (02/13/2023 4:03 PM CDT) Narrative 02/13/2023 4:03 PM CDT Ordered by an unspecified provider. Scanned Document CARDIAC SERVICES ORD ERABLES * ETT LINE PERFORMABLE (02/13/2023 2:21 PM CDT) Narrative Jr. Albert Valverde Anes Asst - 02/13/2023 2:21 PM CDT Jr. Albert Valverde Anes Asst 02/13/2023 2:21 PM Endotracheal Tube Placement: Patient Location: OR. Intubation Event Date/Time: 02/13/2023 2:00 PM Procedure: intubation ([id number]). Procedure Section: Sedation: under general anesthesia. Indications for Airway Management: anesthesia Procedure pretreatments used? No Induction: standard IV Patient Position: sniffing Mask Ventilation: easy. Blade Type: Vines Blade Size: 2 Laryngoscopy View: grade 1 (full cords) Intubation Adjuncts: stylet Tube: endotracheal tube Placement: oral Tube type: cuff - inflated Tube Size (MM): 7 Depth of Insertion (CM): 22 Measured From: lips Cuff volume (mL): 7 Cuff Inflated With: air Number of Attempts: 1. Placement Verified By: direct visualization, bilateral breath sounds, chest auscultation and CO2 monitor CXR Findings: ETT in proper place. Dentition unchanged? Yes Difficult Airway? No. Procedure Start Time: 02/13/2023 2:00 PM. Staff Section Anesthesia Provider: Jr. Albert Valverde Anes Asst, Performed the procedure Zachariah Tyler II, MD GENERAL ANESTHESIA ORDERABLES * BLOOD TYPE VERIFICATION (02/13/2023 11:46 AM CDT) ABO Rh A POS 02/13/2023 1:0 1 PM CDT [facility] Blood Bank BLOOD SPECIMEN / Unknown Venipuncture / Unknown 02/13/2023 11:46 AM CDT 02/13/2023 12:02 PM CDT Hue Bhatti MD LAB - BLOOD BANK ORD ERABLES [facility] [address] [place] [address], [facility] [phone] * (ABNORMAL) PHOSPHORUS BLOOD (02/13/2023 5:13 AM CDT) Phosphorus 2.3(L) 2.9 - 5.1 mg/dL 02/13/2023 6:03 AM CDT [facility] Blood BLOOD SPECIMEN / Unknown Venipuncture / Unknown 02/13/2023 5:13 AM CDT 02/13/2023 5:30 AM CDT [facility] LAB - CHEMISTRY OR DERABLES Performing Organization Address City/[facility]/ZIP Co de Phone Number [address] [address], [facility] [phone] * MAGNESIUM BLOOD (02/13/2023 5:13 AM CDT) Magnesium 1.7 1.6 - 2.6 mg/dL 02/13/2023 6:03 AM CDT [facility] Blood BLOOD SPECIMEN / Unknown Venipuncture / Unknown 02/13/2023 5:13 AM CDT 02/13/2023 5:30 AM CDT [facility] LAB - CHEMISTRY OR DERABLES Performing Organization Address [facility] Co de Phone Number [address] [address], [place] [phone] * TYPE + SCREEN PANEL (02/12/2023 4:50 PM CDT) [facility] Antibody Screen NEG 5:46 PM CDT [facility] ABO Rh A POS 02/12/2023 5:46 PM CDT [facility] Blood Bank BLOOD SPECIMEN / Unknown Venipuncture / Unknown 02/12/2023 4:50 PM CDT 02/12/2023 5:04 PM CDT [facility] LAB - BLOOD BANK O RDERABLES Performing Organization Address City/[facility]/ZIP Co de Phone Number [facility] [address] [place] [address], [place] [phone] * EKG 12-LEAD (02/12/2023 1:56 PM CDT) Ventricular Rate 59 BPM [facility] MUSE Atrial Rate 59 BPM [facility] MUSE P-R Interval 140 ms [facility] M[facility] QRS Duration ms 104 ms H MUSE Q-T Interval ms 472 ms [facility] M[facility] QTC Calculation (Bezet) 467 ms [facility] MUSE Calculated P Jackson 33 degrees [facility] MUSE Calculated R Jackson -7 degrees [facility] MUSE Calculated T Jackson 37 degrees [facility] MUSE Interpretation EKG SINUS BRADYCARDIA INCOMPLETE RIGHT BUNDLE BRANCH BLOCK CANNOT RULE OUT ANTERIOR INFARCT , AGE UNDETERMINED ABNORMAL ECG NO PREVIOUS ECGS AVAILABLE Confirmed by LETICIA CORREIA, AMANDA ([id number]) on 02/12/2023 10:31:40 PM [facility] MUSE 02/12/2023 1:56 PM CDT 02/12/2023 10:31 PM CDT Nii Atkins MD ECG ORDERABLES [facility] * XR PELVIS W RIGHT HIP 2VW (02/12/2023 1:30 PM CDT) Anatomical Region Laterality Modality Pelvis Radiographic Naina ging 02/12/2023 1:27 PM CDT Impressions 02/12/2023 2:19 PM CDT IMPRESSION: Acute subcapital fracture of the right femur with superior displacement. Report dictated by Sidney Aguilar MD (compensation vice president). Harry Quiñones MD have personally reviewed and interpreted this examination/study. > Interpreting Provider: Harry Noonan MD on 02/12/2023 2:19 PM Narrative 02/12/2023 2:19 PM CDT PROCEDURE: XR PELVIS W RIGHT HIP 2VW DATE/TIME OF EXAM: 02/12/2023 1:06 PM CLINICAL INFORMATION: None relevant/not provided if blank. Indication: W19.XXXA: Fall, initial encounter M25.551: Acute right hip pain Additional History: COMPARISON: None. FINDINGS: There is an acute subcapital fracture of the right femur with superior displacement of the femoral neck relative to the head. There is no acute fracture of the pelvis. The pubic symphysis is intact. The sacroiliac joints demonstrate mild sclerotic changes. Procedure Note Leanne Noonan MD - 02/12/2023 PROCEDURE: XR PELVIS W RIGHT HIP 2VW DATE/TIME OF EXAM: 02/12/2023 1:06 PM CLINICAL INFORMATION: None relevant/not provided if blank. Indication: W19.XXXA: Fall, initial encounter M25.551: Acute right hip pain Additional History: COMPARISON: None. FINDINGS: There is an acute subcapital fracture of the right femur with superior displacement of the femoral neck relative to the head. There is no acute fracture of the pelvis. The pubic symphysis is intact. The sacroiliac joints demonstrate mild sclerotic changes. IMPRESSION: Acute subcapital fracture of the right femur with superior displacement. Report dictated by Sidney Aguilar MD (compensation vice president). Harry Quiñones MD have personally reviewed and interpreted this examination/study. > Interpreting Provider: Harry Noonan MD on 02/12/2023 2:19 PM Nii Atkins MD DIAGNOSTIC IMAGING O RDERABLES * XR FEMUR RIGHT 2VW (02/12/2023 1:29 PM CDT) Anatomical Region Laterality Modality Lower Extremity Radiographic Naina ging 02/12/2023 1:30 PM CDT Narrative 02/12/2023 2:19 PM CDT PROCEDURE: XR FEMUR RIGHT 2VW DATE/TIME OF EXAM: 02/12/2023 1:30 PM CLINICAL INFORMATION: None relevant/not provided if blank. Indication: W19.XXXA: Fall, initial encounter M25.551: Acute right hip pain COMPARISON: None. FINDINGS/IMPRESSION: There is an acute subcapital right femoral fracture with superior displacement of the femoral neck relative to the head. The distal femur is intact. Report dictated by Sidney Aguilar MD (compensation vice president). Harry Quiñones MD have personally reviewed and interpreted this examination/study. > Interpreting Provider: Harry Noonan MD on 02/12/2023 2:19 PM Procedure Note Leanne Noonan MD - 02/12/2023 PROCEDURE: XR FEMUR RIGHT 2VW DATE/TIME OF EXAM: 02/12/2023 1:30 PM CLINICAL INFORMATION: None relevant/not provided if blank. Indication: W19.XXXA: Fall, initial encounter M25.551: Acute right hip pain COMPARISON: None. FINDINGS/IMPRESSION: There is an acute subcapital right femoral fracture with superior displacement of the femoral neck relative to the head. The distal femuris intact. Report dictated by Sidney Aguilar MD (compensation vice president). I, Harry Noonan MD have personally reviewed and interpreted this examination/study. > Interpreting Provider: Harry Noonan MD on 02/12/2023 2:19 PM Nii Atkins MD DIAGNOSTIC IMAGING O RDERABLES * PTT [facility] (02/12/2023 1:18 PM CDT) APTT 24.7 23.0 - 38.4 Seconds 02/12/2023 1:58 PM CDT [facility] Comment:Suggested therapeuti c range for full dose I.V. unfractionated heparin therapy for venous thromboembolism is 71 to 109 seconds. Blood BLOOD SPECIMEN / Unknown Venipuncture / Unknown 02/12/2023 1:18 PM CDT 02/12/2023 1:25 PM CDT Nii Atkins MD LAB - COAGULATION OR DERABLES Performing Organization Address [facility]/State/[facility] Co de Phone Number [facility] [address] [place] [address], [facility] [phone] * PT-INR [facility] (02/12/2023 1:18 PM CDT) PT 13.3 12.1 - 14.8 Seconds 02/12/2023 1:58 PM CDT [facility] INR 1.0 See Comment 02/12/2023 1:58 PM CDT [facility] Comment:The suggested therap eutic range for standard coumadin (warfarin) therapy is an INR of 2.0-3.0. For high-risk patients (Mechanical Mitral Valve Prosthesis, etc.), the suggested prophylactic therapeutic range is an INR of 2.5-3.5. Blood BLOOD SPECIMEN / Unknown Venipuncture / Unknown 02/12/2023 1:18 PM CDT 02/12/2023 1:25 PM CDT Nii Atkins MD LAB - COAGULATION OR DERABLES [facility] [address] [place] [address], [facility] [phone] * (ABNORMAL) CBC W AUTO DIFFERENTIAL (02/12/2023 1:18 PM CDT) WBC 5.6 3.5 - 10.5 10 3/uL 02/12/2023 1:33 PM [facility] RBC 3.43(L) 3.80 - 5.20 10 6/uL 02/12/2023 1:33 PM [facility] Hemoglobin 10.4(L) 12.0 - 15.6 g/dL 02/12/2023 1:33 PM [facility] Hematocrit 32.2(L) 35.0 - 45.0 % 02/12/2023 1:33 PM [facility] MCV 93.9 80.7 - 98.3 fL 02/12/2023 1:33 PM [facility] MCH 30.3 26.7 - 34.0 pg 02/12/2023 1:33 PM [facility] MCHC 32.3 30.8 - 35.9 g/dL 02/12/2023 1:33 PM [facility] RDW-SD 47.8 36.0 - 50.0 fL 02/12/2023 1:33 PM [facility] RDW-CV 13.9 11.2 - 14.8 % 02/12/2023 1:33 PM [facility] Platelet Count 205 150 - 400 10 3/uL 02/12/2023 1:33 PM [facility] MPV 9.9 9.4 - 12.9 fL 02/12/2023 1:33 PM [facility] nRBC Absolute 0.00 0 10 3/uL 02/12/2023 1:33 PM [facility] nRBC Auto 0.0 0 /100 WBC 02/12/2023 1:33 PM [facility] Neutrophils % 65.4 35.0 - 70.0 % 02/12/2023 1:33 PM [facility] Lymphocytes % 24.8 20.0 - 43.0 % 02/12/2023 1:33 PM [facility] Monocytes % 7.0 5.0 - 13.0 % 02/12/2023 1:33 PM [facility] Eosinophils % 1.8 0.0 - 6.0 % 02/12/2023 1:33 PM [facility] Basophil % 0.5 0.0 - 2.0 % 02/12/2023 1:33 PM [facility] Neutrophils Absolute 3.67 1.60 - 7.00 10 3/uL 02/12/2023 1:33 PM [facility] Lymphocyte Absolute 1.39 1.10 - 3.90 10 3/uL 02/12/2023 1:33 PM [facility] Monocytes Absolute 0.39 0.26 - 1.07 10 3/uL 02/12/2023 1:33 PM [facility] Eosinophils Absolute 0.10 0.00 - 0.47 10 3/uL 02/12/2023 1:33 PM [facility] Basophils Absolute 0.03 0.00 - 0.08 10 3/uL 02/12/2023 1:33 PM [facility] Immature Granulocytes % 0.5 0.0 - 1.0 % 02/12/2023 1:33 PM [facility] Immature Granulocytes Absolute 0.03 02/12/2023 1:33 PM [facility] Blood BLOOD SPECIMEN / Unknown Venipuncture / Unknown 02/12/2023 1:18 PM CDT 02/12/2023 1:25 PM T Nii Atkins MD LAB - HEMATOLOGY ORD ERABLES [facility] [address] [place] [address], [facility] [phone] * (ABNORMAL) COMPREHENSIVE METABOLIC PANEL (02/12/2023 1:18 PM [facility]) BUN 13 7 - 26 mg/dL 02/12/2023 2:03 PM [facility] Creatinine 1.04(H) 0.56 - 0.96 mg/dL 02/12/2023 2:03 PM [facility] Sodium 145 136 - 145 mmol/L 02/12/2023 2:03 PM [facility] Potassium 3.6 3.5 - 4.5 mmol/L 02/12/2023 2:03 PM [facility] Chloride 116(H) 98 - 107 mmol/L 02/12/2023 2:03 PM [facility] CO2 23 22 - 29 mmol/L 02/12/2023 2:03 PM [facility] Glucose 85 70 - 115 mg/dL 02/12/2023 2:03 PM [facility] Calcium 8.6 8.4 - 10.2 mg/dL 02/12/2023 2:03 PM [facility] Protein Total 5.4(L) 6.0 - 8.3 g/dL 02/12/2023 2:03 PM [facility] Albumin 3.1(L) 3.4 - 5.0 g/dL 02/12/2023 2:03 PM [facility] Bilirubin Total 0.3 0.2 - 1.2 mg/dL 02/12/2023 2:03 PM [facility] Alkaline Phosphatase 72 40 - 150 U/L 02/12/2023 2:03 PM [facility] ALT 13 5 - 55 U/L 02/12/2023 2:03 PM [facility] AST 14 5 - 34 U/L 02/12/2023 2:03 PM [facility] Anion Gap 10 8 - 18 02/12/2023 2:03 PM [facility] BUN/Creatinine Ratio 13 7 - 23 02/12/2023 2:03 PM [facility] Osmolality Calculated 299 270 - 300 mOsm/kg 02/12/2023 2:03 PM [facility] Albumin/Globulin Ratio 1.3 1.1 - 2.3 02/12/2023 2:03 PM CDT [facility] eGFR by CKD-EPI 53(L) >=90 mL/min/1.7 3 m2 02/12/2023 2:03 PM CDT [facility] Blood BLOOD SPECIMEN / Unknown Venipuncture / Unknown 02/12/2023 1:18 PM CDT 02/12/2023 1:25 PM CDT Nii Atkins MD LAB - CHEMISTRY JESSEE IBRAHIM [facility] [address] [place] [address], [facility] [phone] * DERMATOPATHOLOGY (02/01/2022 12:00 AM CDT) Only the most recent of6 resultswithin the time period is included. Case Report Dermatopathology Report Case: [id number] Authorizing Provider: Marielle Rodriguez DO Collected: 02/01/2022 12:00 AM Ordering Location: [facility] DermPath Lab Received: 02/02/2022 11:19 AM Pathologist: Horace Salcedo MD Specimen: Skin, left shoulder 2 5:23 PM CDT DERMATOPATHOLOGY LABORATORY Final Diagnosis Specimen A. SKIN, left shoulder: BASAL CELL CARCINOMA, SUPERFICIAL MULTIFOCAL (C44.619) 2 5:23 PM T DERMATOPATHOLOGY LABORATORY Clinical History R/O NMSC. 2 5:23 PM CDT DERMATOPATHOLOGY LABORATORY Gross Description Specimen A: Received is one formalin filled container labeled with the patient's name and designated left shoulder. The specimen consists of a shave biopsy measuring [id number]. Jar 0. 2 5:23 PM CD DERMATOPATHOLOGY LABORATORY Microscopic Description Specimen A. SKIN, left shoulder: Attached to the undersurface of the epidermis, there are small aggregates of basaloid cells with a high nuclear to cytoplasmic ratio and peripheral palisading. 2 5:23 PM T DERMATOPATHOLOGY LABORATORY Disclaimer An external and internal positive and negative controls are appropriate for the histochemical, immunohistochemical and immunofluorescence stain(s) in this case (if any), except where stated explicitly. The performance characteristics of the stain(s) cited in this report were developed and its performance characteristic determined by the Dermatopathology Laboratory at [facility], directed by Dr. Brice Salcedo. These tests need not be, and therefore are not, approved by the [place] Food and Drug Administration. The tests are used for clinical purposes. Billing Codes Specimen Charges Stain Charges 93252 1 2 5:23 PM CDT DERMATOPATHOLOGY LABORATORY Embedded Images 2 5:23 PM CDT DERMATOPATHOLOGY LABORATORY Pathology/Cytolog y TISSUE SPECIMEN FROM SKIN / Unknown 02/01/2022 02/02/2022 11:19 AM CDT Marielle Floryzack Rodriguez DO LAB - PATHOLOGY/C YTOLOGY ORDERABLES DERMATOPATHOLOGY LABORATORY [facility] - Department of Dermatology [address], [address] [phone] * PATHOLOGY TISSUE (08/14/2013 4:50 PM LINUX UNIX ENGINEER) [facility] Comment: !! EDITED OR CORRECTED RESULTS !! RESULT PREVIOUSLY REPORTED : NOTIFIED [] AT 1531 ON 08/19/13 THIS IS AN ADDENDUM REPORT Addendum - Read full report CLINICAL HISTORY: The patient is a 73-year-old woman with a history of uterine cancer, nausea and vomiting, now with abdominal pain, who underwent an endoscopy with biopsy. The findings include esophagitis. FINAL DIAGNOSIS: SMALL INTESTINE, BIOPSY: - SMALL INTESTINE MUCOSA WITH ACTIVE CHRONIC INFLAMMATION AND REACTIVE/REGENERATIVE CHANGES - NO TUMOR, PATHOGENIC ORGANISMS OR VIRAL INCLUSIONS SEEN - SEE MICROSCOPIC DESCRIPTION GROSS DESCRIPTION: The specimen labeled with the patient's name Ally Pearson and small bowel , is received in one formalin-filled container and consists of several fragments of soft, yellow-miller tissue, the smallest in size being <0.1 cm. The three larger pieces measure 0.2 to 0.3 cm in greatest dimension. The specimen is submitted in toto in cassette A1. KM/edk MICROSCOPIC DESCRIPTION: Sections show small intestinal mucosa with neutrophil infiltrates and slightly increased lymphoplasmacytic infiltrates in the lamina propria. Regenerative/reactive epithelial changes are present with hyperchromatic nuclei and mucin depletion. Some epithelial cells show cytoplasmic eosinophilia. Focal lamina propria hyalinization is also seen. The above findings are suggestive of a radiation effect. Clinical correlation is suggested. XD/KM/BC/ The performance characteristics of all immunohistochemical and indirect immunofluorescence stains (if any) cited in this report were determined by the Histopathology Laboratory of [facility] in compliance with CLIA '88 regulations. Some of these tests rely on the use of analyte-specific reagents and are subject to specific labeling requirements by the FDA. Such tests were developed by the [facility] of [facility] and have not been cleared or approved by the FDA. The FDA has determined that such clearance or approval is not necessary. These tests are used for clinical purposes and should not be regarded as investigational or for research. This case has been personally reviewed and interpreted by the attending (teaching) pathologist. Final Diagnosis performed by Ry Rizzo. Electronically signed 08/18/2013 ADDENDUM: An immunostain for CMV is negative. XD Addendum #1 performed by Ry Rizzo. Electronically signed 08/19/2013 08/14/2013 4:50 PM LIN[employer] UNIX ENGINEER 08/15/2013 7:21 AM [employer] UNIX ENGINEER Ramona Gonsalez MD LAB - PATHOLOGY/CY TOLOGY ORDERABLES Performing Organization Address City/State/[facility] Co de Phone Number [address] [phone] Care Teams Blade Operator Relationship Specialty Start Date End Date Gaviota Edmonds MD [address] [place] [address] [address] [place] [address] PCP - General 07/14/13
--- OUTSIDE RECORDS SUMMARY | 2024-10-10 11:28 | XMS_ITS ---
Author Organization [facility] Address [address] [facility] [address] [place] [address] Care Team Providers Care Sash Repairer Name Role Phone Atif Husainjit Thom [phone] MEDICATIONS Medication SIG (Take, Route, Frequency, Duration) Notes Start Date End Date Status Calcitriol 0.25 MCG 1 capsule Orally Onc e a day for 90 day(s) 08/06/2024 05/03/2025 Active Losartan Potassium 25 MG 1 tablet Orally Once a day for 90 day(s) 08/06/2024 Active Encounters Encounter Location Date Provider Diagnosis [facility] [place] [facility] [address] [facility] [address] [place] [address] 08/06/2024 Eric Husain PLAN OF TREATMENT Medication Medication Name Sig Start Date Stop Date Notes Calcitriol 0.25 MCG 1 capsule Orally Onc e a day for 90 day(s) 08/06/2024 05/03/2025 Losartan Potassium 25 MG 1 tablet Orally Once a day for 90 day(s) 08/06/2024 Next Appt Details Provider Name:Eric Husain , 12/03/2024 03:30:00 PM, [address] [facility] [address], [place], [address], Progress Notes * Ally SHELTONDOB: (84 yo F)Acc No.[id number]:08/06/2024 Patient: Ally SHELTON :1940 Age:84 Y Sex:Female Address:[address] [place] [id number] * Refills Start Losartan Potassium Tablet, 25 MG, Orally, 90 Tablet, 1 tablet, Once a day, 90 day(s), Refills=2 Start Calcitriol Capsule, 0.25 MCG, Orally, 90 Capsule, 1 capsule, Once a day, 90 day(s), Refills=2 * true * Date:
--- OUTSIDE RECORDS SUMMARY | 2024-10-10 11:28 | XMS_ITS | Data Portability ---
Author Organization [facility], Main Office Address [address] [place] [address] Care Team Providers Care Ip Litigation Associate Name Role Phone ERIC ANGULO Environmental Aid MELINA SOSA Primary Care Provider OPAL LOPEZ Hematology/Oncology Assessment Encounter Date Assessment Date Assessment LastModified by Organization Details LastModified Time 07/17/2023 07/17/2023 WWE- no longer doing 2/2 age Cscope- declines order, no longer doing Mammogram- declines order, no longer doing DEXA- declines order, no longer doing Call office if worse, ER if life-threatening illness RTC in 6 months and p.r.n. She voices understanding of plan and agrees [email or web address] Not available 07/17/2023 11:48:55 03/11/2024 03/11/2024 10/31/2023: VIT D 25.5 H/H 10.8/33.8 11/16/2023: BUN 20, GFR 53, TP 5.4L, Glob 2.2L 02/21/2024: Dr Rodrigue Wright 136, GFR 57 A1C 5.3 H/H 11.1/33.4 VIT D 30.2 45 minutes spent with the patient, obtained and reviewed her labs from Dr Rodrigue BETH and did a KENNETH vann Not available 03/11/2024 14:57:47 06/10/2024 06/10/2024 10/31/2023: VIT D 25.5 H/H 10.8/33.8 11/16/2023: BUN 20, GFR 53, TP 5.4L, Glob 2.2L 02/21/2024: Dr Rodrigue Wright 136, GFR 57 A1C 5.3 H/H 11.1/33.4 VIT D 30.2 06/03/2024: TG 154 H/H 11.2/35.2 Not available 06/10/2024 11:47:50 09/09/2024 09/09/2024 10/31/2023: VIT D 25.5 H/H 10.8/33.8 11/16/2023: BUN 20, GFR 53, TP 5.4L, Glob 2.2L 02/21/2024: Dr Rodrigue Wright 136, GFR 57 A1C 5.3 H/H 11.1/33.4 VIT D 30.2 06/03/2024: TG 154 H/H 11.2/35.2 09/05/2024: H/H 10.9/33.8 TP 5.7L Not available 09/09/2024 11:52:20 Plan of Treatment Reminders Order Date Submit Date Provider Last Modified By Organization Details Last Modified Time Details Appointments Any 15 2024 11:00A Horace [email or web address] MD Not available Not available Not available Lab vitamin D, 25-hydrox y, total, serum 2022 023 [email or web address] [facility] (Lab), [address] [place], [address], 09/10/2023 12:57:44 TSH, serum or plasma 2022 023 [facility] (Lab), [address] [place], [address], 07/17/2023 14:03:08 T4, free, serum 2022 023 [facility] (Lab), [address] [place], [address], 07/17/2023 13:59:24 lipid panel, serum 2022 023 [facility] (Lab), [address] [place], [address], 07/17/2023 15:14:07 CBC w/ auto diff 2022 023 [facility] (Lab), [address] [place], [address], 07/17/2023 12:59:42 CMP, serum or plasma 2022 023 [facility] (Lab), [address] [place], [address], 07/17/2023 15:14:22 vitamin B12 + folate, serum or blood [address] (Lab), [address] [place], [address], 09/10/2023 12:57:44 vitamin D, 25-hydrox y, total, serum [address] (Lab), [address] [place], [address], 04/16/2024 09:40:04 lipid panel, serum 2023 024 [facility] (Lab), [address] [place], [address], 10/31/2023 13:35:41 CBC w/ auto diff 2023 024 [facility] (Lab), [address] [place], [address], 10/31/2023 12:47:51 CMP, serum or plasma 2023 024 [facility] (Lab), [address] [place], [address], 10/31/2023 13:35:51 TSH, serum or plasma 2023 024 [facility] (Lab), [address] [place], [address], 10/31/2023 14:11:45 vitamin B12 + folate, serum or blood [address] (Lab), [address] [facility] [place], [address], 04/16/2024 09:40:04 urinalysi s, dipstick 2023 024 [email or web address] [address], [place], [address], 03/25/2024 09:57:58 lipid panel, serum 2023 024 [facility] (Lab), [address] [place], [address], 06/03/2024 21:52:01 CBC w/ auto diff 2023 024 [facility] (Lab), [address] [place], [address], 06/03/2024 17:28:58 CMP, serum or plasma 2023 024 [facility] (Lab), [address] [place], [address], 06/03/2024 21:52:06 TSH, serum or plasma 2023 024 [facility] (Lab), [address] [place], [address], 06/03/2024 21:58:21 vitamin D, 25-hydrox y, total, serum [address] (Lab), [address] [place], [address], 09/11/2024 08:49:49 vitamin B12 + folate, serum or blood [email or web address] (Lab), [address] [place], [address], 09/11/2024 08:49:49 vitamin D, 25-hydrox y, total, serum 2023 024 [facility] (Lab), [address] [place], [address], 06/10/2024 12:59:06 lipid panel, serum 2023 024 [facility] (Lab), [address] [place], [address], 06/10/2024 12:59:06 CBC w/ auto diff 2023 024 [facility] (Lab), [address] [place], [address], 06/10/2024 12:59:06 CMP, serum or plasma 2023 024 [facility] (Lab), [address] [place], [address], 06/10/2024 12:59:06 TSH, serum or plasma 2023 024 [facility] (Lab), [address] [place], [address], 06/10/2024 12:59:06 vitamin B12 + folate, serum or blood 2023 024 [facility] (Lab), [address] [place], [address], 06/10/2024 12:59:06 vitamin D, 25-hydrox y, total, serum [address] (Lab), [address] [place], [address], 09/10/2024 09:41:15 lipid panel, serum [address] (Lab), [address] [place], [address], 09/10/2024 09:41:15 CBC w/ auto diff [address] (Lab), [address] [place], [address], 09/10/2024 09:41:15 CMP, serum or plasma [address] (Lab), [address] [place], [address], 09/10/2024 09:41:15 TSH, serum or plasma [address] (Lab), [address] [place], [address], 09/10/2024 09:41:15 vitamin B12 + folate, serum or blood [address] (Lab), [address] [place], [address], 09/10/2024 09:41:15 Referral nephrolog ist referral 2023 024 [email or web address] Eric Angulo MD (Nephrology, [address], [address], [place], [address], 09/11/2024 08:50:59 nephrolog ist referral 2023 024 [email or web address] Eric Angulo MD (Nephrology, [address], [address], [place], [address], 06/10/2024 12:34:23 hematolog ist referral 2023 024 [email or web address] Cesar Munoz, [address], [place], [address], 06/10/2024 12:34:24 nephrolog ist referral 2023 025 [email or web address] Eric Angulo MD (Nephrology, [address], [address], [place], [address], 09/09/2024 12:29:42 hematolog ist referral 2023 025 [email or web address] Cesar Munoz, [address], [place], [address], 09/09/2024 12:29:43 Procedures None recorded. Surgeries None recorded. Imaging None recorded. Medication Orders Synthroid 50 mcg tablet 2023 024 [id number], [address], [place], [address], 10/11/2023 15:48:28 levofloxa jeimy 750 mg tablet [address] [id number], [address], [place], [address], 06/10/2024 11:17:02 Patient TargetsNo targets recorded. Patient Instructions Encounter Date Encounter Id Patient Instructions Last Modified By Organization Details Last Modified Time 03/11/2024 [id number] dementia rating scale-2* [email or web address] Not available 03/11/2024 14:48:41 alcohol misuse* [email or web address] Not available 03/11/2024 14:49:00 depression screening* [email or web address] Not available 03/11/2024 14:49:21 multi-dimensiona l health assessment questionnaire* [email or web address] Not available 03/11/2024 14:48:25 Personalized Hea lt Plan and Screening Recommendations Advance Directives - Do you have one? Yes Advance Directives - Do we have your advance directive on file in your health record? Yes Primary Prevention/Interven tion (prevents or decreases the chance of common diseases from occurring) Smoking Risk: Non Smoker Alcohol Misuse Screening: Negative Weight: Appropriate Physical activity: Need more exercise/physical activity decrease sitting time to no more than 5hr/day Nutrition: Good Average Refer to attached handout Heart-Healthy Diet: After Your Visit Fall Risk (screened today): Low Intermediate Refer to attached handout Preventing Falls: After your Visit Vaccines Pneumococcal: Ordered Recommended today Influenza: Your next one in the fall of this year Chronic Disease Risks Stroke: Low Risk Intermediate Risk Heart Attack: Low risk Intermediate Risk Clogging of the Arteries: Low risk Intermediate Risk Diabetes: Low Risk I have no recommendations Secondary Prevention/Interven tion (detects treatable diseases before they may cause symptoms, disability, or ) Breast Cancer Screening with mammogram: Your next mammogram: Ordered Recommended today Recommended today, but you have declined Cervical/Uterine/Ov silvana Cancer Screening: No screening necessary Osteoporosis Screening: Your next DEXA in: Ordered Recomme nded today Recommended today, but you have declined Colon Cancer Screening: Eye Disease Screening: Ordered Recommended today Dementia Risk: Low Intermediate I have no recommendations Depression Screening: Negative Not available 03/11/2024 14:52:02 Reason for Referral Environmental Aid 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 Referring Physician: Melina Sosa Internal Medicine, Encounter Date: 03/11/2024 Environmental Aid 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 Referring Physician: Melina Sosa Internal Medicine, Encounter Date: 06/10/2024 Referring Physician: Melina Sosa Internal Medicine, Encounter Date: 06/10/2024 Environmental Aid 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 Referring Physician: Juan Alberto [facility]agat Medicine, Encounter Date: 09/09/2024 Referring Physician: Melina Sosa Internal Medicine, Encounter Date: 09/09/2024 Results Created Date Observation Date Name Description Value Unit Range Abnormal Flag Note LastModifiedBy Organization Detail LastModifiedTime 07/17/2007/17/2023 CBC/C OMPLE TE BLD COUNT W/DIF F white blood cells 4.1 x10'3 /uL 4.2-10 .8 low Not Available [facility] (Lab) [address] [place], [address], 07/17/2023 12:59:42 07/17/20 23 07/17/2023 CBC/C OMPLE TE BLD COUNT W/DIF F red blood cells 3.67 x10'6 /uL 3.80-5 .20 low Not Available [facility] (Lab) [address] [place], [address], 07/17/2023 12:59:42 07/17/20 23 07/17/2023 CBC/C OMPLE TE BLD COUNT W/DIF F hemoglobin 11.1 g/dL 12.0-1 5.6 low Not Available [facility] (Lab) [address] [place], [address], 07/17/2023 12:59:42 07/17/2007/17/2023 CBC/C OMPLE TE BLD COUNT W/DIF F hematocrit 34.8 % 35.7-4 5.7 low Not Available [facility] (Lab) [address] [place], [address], 07/17/2023 12:59:42 07/17/2007/17/2023 CBC/C OMPLE TE BLD COUNT W/DIF F mean red cell volume 94.8 fL 82.0-9 9.0 Not Available [facility] (Lab) [address] [place], [address], 07/17/2023 12:59:42 07/17/20 23 07/17/2023 CBC/C OMPLE TE BLD COUNT W/DIF F mean red cell hemoglobin 30.2 pg 27.0-3 3.0 Not Available [facility] (Lab) [address] [place], [address], 07/17/2023 12:59:42 07/17/20 23 07/17/2023 CBC/C OMPLE TE BLD COUNT W/DIF F mean RBC HGB concentratio n 31.9 g/dL 31.0-3 6.0 Not Available [facility] (Lab) [address] [place], [address], 07/17/2023 12:59:42 07/17/20 23 07/17/2023 CBC/C OMPLE TE BLD COUNT W/DIF F red cell distribution width 14.9 % 11.8-1 5.5 Not Available [facility] (Lab) [address] [place], [address], 07/17/2023 12:59:42 07/17/2007/17/2023 CBC/C OMPLE TE BLD COUNT W/DIF F platelets 219 x10'3 /uL 150-40 0 Not Available [facility] (Lab) [address] [place], [address], 07/17/2023 12:59:42 07/17/2007/17/2023 CBC/C OMPLE TE BLD COUNT W/DIF F mean platelet volume 10.4 fL 9.0-12 .4 Not Available [facility] (Lab) [address] [place], [address], 07/17/2023 12:59:42 07/17/2007/17/2023 CBC/C OMPLE TE BLD COUNT W/DIF F neutrophils 46.7 % 39.0-7 2.0 Not Available [facility] (Lab) [address] [place], [address], 07/17/2023 12:59:42 07/17/2007/17/2023 CBC/C OMPLE TE BLD COUNT W/DIF F lymphocytes 41.3 % 16.0-4 7.0 Not Available [facility] (Lab) [address] [place], [address], 07/17/2023 12:59:42 07/17/2007/17/2023 CBC/C OMPLE TE BLD COUNT W/DIF F monocytes 8.2 % 5.0-12 .0 Not Available [facility] (Lab) [address] [place], [address], 07/17/2023 12:59:42 07/17/2007/17/2023 CBC/C OMPLE TE BLD COUNT W/DIF F eosinophils 3.1 % 1.0-7. 0 Not Available [facility] (Lab) [address] [place], [address], 07/17/2023 12:59:42 07/17/2007/17/2023 CBC/C OMPLE TE BLD COUNT W/DIF F basophils 0.7 % 0.0-2. 0 Not Available [facility] (Lab) [address] [place], [address], 07/17/2023 12:59:42 07/17/2007/17/2023 CBC/C OMPLE TE BLD COUNT W/DIF F immature granulocytes 0.0 % 0.00-0 .50 Not Available [facility] (Lab) [address] [place], [address], 07/17/2023 12:59:42 07/17/2007/17/2023 CBC/C OMPLE TE BLD COUNT W/DIF F neutrophils, absolute count 1.93 x10'3 /uL 1.5-8. 0 Not Available [facility] (Lab) [address] [place], [address], 07/17/2023 12:59:42 07/17/2007/17/2023 CBC/C OMPLE TE BLD COUNT W/DIF F lymphocytes, absolute count 1.71 x10'3 /uL 1.07-3 .43 Not Available [facility] (Lab) [address] [place], [address], 07/17/2023 12:59:42 07/17/20 23 07/17/2023 CBC/C OMPLE TE BLD COUNT W/DIF F monocytes, absolute count 0.34 x10'3 /uL 0.29-0 .99 Not Available [facility] (Lab) [address] [place], [address], 07/17/2023 12:59:42 07/17/20 23 07/17/2023 CBC/C OMPLE TE BLD COUNT W/DIF F eosinophils, absolute count 0.13 x10'3 /uL 0.02-0 .53 Not Available [facility] (Lab) [address] [place], [address], 07/17/2023 12:59:42 07/17/20 23 07/17/2023 CBC/C OMPLE TE BLD COUNT W/DIF F basophils, absolute count 0.03 x10'3 /uL 0.01-0 .08 Not Available [facility] (Lab) [address] [place], [address], 07/17/2023 12:59:42 07/17/2007/17/2023 CBC/C OMPLE TE BLD COUNT W/DIF F immature granulocytes ,absolute 0.00 x10'3 /uL 0.00-0 .05 Not Available [facility] (Lab) [address] [place], [address], 07/17/2023 12:59:42 07/17/2007/17/2023 CBC/C OMPLE TE BLD COUNT W/DIF F nucleated red blood cells 0.0 % -0 Not Available [facility] (Lab) [address] [place], [address], 07/17/2023 12:59:42 07/17/20 23 07/17/2023 CBC/C OMPLE TE BLD COUNT W/DIF F NRBC# 0.00 x10'3 /uL Not Available [facility] (Lab) [address] [place], [address], 07/17/2023 12:59:42 07/17/2007/17/2023 T4 FREE free T4 1.27 NG/dL 0.78-2 .19 Not Available [facility] (Lab) [address] [place], [address], 07/17/2023 13:59:24 07/17/2007/17/2023 TSH thyroid-stim ulating hormone 1.380 uIU/m L 0.465- 4.680 Not Available [facility] (Lab) [address] [place], [address], 07/17/2023 14:03:08 07/17/2007/17/2023 VITAM IN D 25-HY DROXY [id number] 31.0 NG/mL 30-100 Vitam in D Statu s: Defic ient: <20 ng/mL Insuf ficie nt: 20-29 ng/mL Suffi cient : 30-10 0 ng/mL Not Available [facility] (Lab) [address] [place], [address], 07/17/2023 14:11:48 07/17/2007/17/2023 VITAM IN B12 (TAMMY NIELS ) vb12 855 pg/mL 239-93 1 Not Available [facility] (Lab) [address] [place], [address], 07/17/2023 14:18:59 07/17/2007/17/2023 FOLAT E, SERUM /PLAS MA folate 7.87 NG/mL 2.76-2 0.0 Not Available [facility] (Lab) [address] [place], [address], 07/17/2023 14:19:03 07/17/2007/17/2023 LIPID PANEL cholesterol 146 mg/dL 140-19 9 NIH ESTER NSUS RECOM MENDA TION FOR CARYN STERO L: ADULT CHILD LOW RISK: <200 <170 BORDE RLINE : <200- 239 ----- HIGH RISK: >240 >200 Not Available [facility] (Lab) [address] [place], [address], 07/17/2023 15:14:07 07/17/20 23 07/17/2023 LIPID PANEL triglyceride s 100 mg/dL 0-150 NIH ESTER NSUS REPOR T RECOM MENDA TION FOR TRIGL YCERI KIMI: ADULT CHILD LOW RISK: <150 ----- BODER LINE: 150-1 99 ----- HIGH RISK: >200 ----- Not Available [facility] (Lab) [address] [place], [address], 07/17/2023 15:14:07 07/17/20 23 07/17/2023 LIPID PANEL HDL cholesterol 67 mg/dL 40- Not Available [facility] (Lab) [address] [place], [address], 07/17/2023 15:14:07 07/17/20 23 07/17/2023 LIPID PANEL LDL cholesterol, calculated 59 mg/dL 0-130 NIH ESTER NSUS REPOR T RECOM MENDA TIONS FOR LDL: ADULT CHILD LOW RISK <130 <110 (OPTI MAL LDL) <100 ----- BORDE RLINE : 130-1 59 ----- HIGH RISK: >160 >130 A TRIGL YCERI DE RESUL T >400 INVAL IDATE S THE CALCU LATIO N FOR LDL FRACT IONAT ION - THE LDL RESUL T WILL NOT BE REPOR DAYANNA. Not Available [facility] (Lab) [address] [place], [address], 07/17/2023 15:14:07 07/17/20 23 07/17/2023 COMPR EHENS MELVIN METAB OLIC PANEL sodium 139 mmol/ L 137-14 5 Not Available [facility] (Lab) [address] [place], [address], 07/17/2023 15:14:22 07/17/20 23 07/17/2023 COMPR EHENS MELVIN METAB OLIC PANEL potassium 4.1 mmol/ L 3.5-5. 1 Not Available [facility] (Lab) [address] [place], [address], 07/17/2023 15:14:22 07/17/20 23 07/17/2023 COMPR EHENS MELVIN METAB OLIC PANEL chloride 109 mmol/ L 98-107 high Not Available [facility] (Lab) [address] [place], [address], 07/17/2023 15:14:22 07/17/20 23 07/17/2023 COMPR EHENS MELVIN METAB OLIC PANEL carbon dioxide 26 mmol/ L 22-30 Not Available [facility] (Lab) [address] [place], [address], 07/17/2023 15:14:22 07/17/20 23 07/17/2023 COMPR EHENS MELVIN METAB OLIC PANEL anion gap 8.1 mmol/ L 14-22 low Not Available [facility] (Lab) [address] [place], [address], 07/17/2023 15:14:22 07/17/20 23 07/17/2023 COMPR EHENS MELVIN METAB OLIC PANEL glucose 72 mg/dL 70-99 Not Available [facility] (Lab) [address] [place], [address], 07/17/2023 15:14:22 07/17/20 23 07/17/2023 COMPR EHENS MELVIN METAB OLIC PANEL BUN 16 mg/dL 8-19 Not Available [facility] (Lab) [address] [place], [address], 07/17/2023 15:14:22 07/17/20 23 07/17/2023 COMPR EHENS MELVIN METAB OLIC PANEL creatinine 0.96 mg/dL 0.66-1 .25 Not Available [facility] (Lab) [address] [place], [address], 07/17/2023 15:14:22 07/17/2007/17/2023 COMPR EHENS MELVIN METAB OLIC PANEL GFR 56 Refer ence Range : [place] ge GFR Healt hy Adult : >60 mL/mi n/1.7 3 m2 Chron ic Kidne y Disea se: 15-60 mL/mi n/1.7 3 m2 Kidne y Failu re: <15/m L/min /1.73 m2 www.n iddk. nih.g ov The MDRD study equat ion has not been valid ated in child cee <18 years of age; pregn ant women ; the elder ly >85 years of age; or in some racia l or ethni c subgr oups, such as Hispage nics. Outsi de the valid ated vane eters , estim ated GFR is less accur ate, requi ring clini flor judgm ent on a case- by-ca se basis . Clini flor inter preta tion for other races and ages must be made by the clini nikhil. The MDRD study equat ion has not been valid ated for the evalu ation of serum creat inine relat ed to nutri yesy l statu s or medic ation usage . For perso ns <18 years of age, a pedia tric GFR calcu lator is avail able on the [facility] websi te: https ://vickie coppola.o rg/pr ofess ional s/kdo qi/gf r_cal culat or Not Available [facility] (Lab) [address] [place], [address], 07/17/2023 15:14:22 07/17/20 23 07/17/2023 COMPR EHENS MELVIN METAB OLIC PANEL alkaline phosphatase 65 U/L 38-126 Not Available [facility] (Lab) [address] [place], [address], 07/17/2023 15:14:22 07/17/20 23 07/17/2023 COMPR EHENS MELVIN METAB OLIC PANEL alanine aminotransfe rase 13 U/L 0-35 Not Available [facility] (Lab) [address] [place], [address], 07/17/2023 15:14:22 07/17/20 23 07/17/2023 COMPR EHENS MELVIN METAB OLIC PANEL aspartate aminotransfe rase 18 U/L 15-37 Not Available [facility] (Lab) [address] [place], [address], 07/17/2023 15:14:22 07/17/20 23 07/17/2023 COMPR EHENS MELVIN METAB OLIC PANEL bilirubin, total 0.30 mg/dL 0.20-1 .30 Not Available [facility] (Lab) [address] [place], [address], 07/17/2023 15:14:22 07/17/20 23 07/17/2023 COMPR EHENS MELVIN METAB OLIC PANEL calcium 8.9 mg/dL 8.4-10 .2 Not Available [facility] (Lab) [address] [place], [address], 07/17/2023 15:14:22 07/17/20 23 07/17/2023 COMPR EHENS MELVIN METAB OLIC PANEL total protein 5.7 g/dL 6.3-8. 2 low Not Available [facility] (Lab) [address] [place], [address], 07/17/2023 15:14:22 07/17/20 23 07/17/2023 COMPR EHENS MELVIN METAB OLIC PANEL albumin 3.3 g/dL 3.0-4. 4 Not Available [facility] (Lab) [address] [place], [address], 07/17/2023 15:14:22 07/17/20 23 07/17/2023 COMPR EHENS MELVIN METAB OLIC PANEL globulin 2.4 g/dL 2.6-4. 2 low Not Available [facility] (Lab) [address] [place], [address], 07/17/2023 15:14:22 07/17/20 23 07/17/2023 COMPR EHENS MELVIN METAB OLIC PANEL A/G ratio 1.4 ratio 1.0-2. 0 Not Available [facility] (Lab) [address] [place], [address], 07/17/2023 15:14:22 10/31/19 24 10/31/2023 CBC/C OMPLE TE BLD COUNT W/DIF F white blood cells 5.9 x10'3 /uL 4.2-10 .8 Not Available [facility] (Lab) [address] [place], [address], 10/31/2023 12:47:51 10/31/19 24 10/31/2023 CBC/C OMPLE TE BLD COUNT W/DIF F red blood cells 3.46 x10'6 /uL 3.80-5 .20 low Not Available [facility] (Lab) [address] [place], [address], 10/31/2023 12:47:51 10/31/19 24 10/31/2023 CBC/C OMPLE TE BLD COUNT W/DIF F hemoglobin 10.8 g/dL 12.0-1 5.6 low Not Available [facility] (Lab) [address] [place], [address], 10/31/2023 12:47:51 10/31/19 24 10/31/2023 CBC/C OMPLE TE BLD COUNT W/DIF F hematocrit 33.8 % 35.7-4 5.7 low Not Available [facility] (Lab) [address] [place], [address], 10/31/2023 12:47:51 10/31/19 24 10/31/2023 CBC/C OMPLE TE BLD COUNT W/DIF F mean red cell volume 97.7 fL 82.0-9 9.0 Not Available [facility] (Lab) [address] [place], [address], 10/31/2023 12:47:51 10/31/19 24 10/31/2023 CBC/C OMPLE TE BLD COUNT W/DIF F mean red cell hemoglobin 31.2 pg 27.0-3 3.0 Not Available [facility] (Lab) [address] [facility] [place], [address], 10/31/2023 12:47:51 10/31/19 24 10/31/2023 CBC/C OMPLE TE BLD COUNT W/DIF F mean RBC HGB concentratio n 32.0 g/dL 31.0-3 6.0 Not Available [facility] (Lab) [address] [place], [address], 10/31/2023 12:47:51 10/31/19 24 10/31/2023 CBC/C OMPLE TE BLD COUNT W/DIF F red cell distribution width 14.3 % 11.8-1 5.5 Not Available [facility] (Lab) [address] [place], [address], 10/31/2023 12:47:51 10/31/19 24 10/31/2023 CBC/C OMPLE TE BLD COUNT W/DIF F platelets 217 x10'3 /uL 150-40 0 Not Available [facility] (Lab) [address] [place], [address], 10/31/2023 12:47:51 10/31/19 24 10/31/2023 CBC/C OMPLE TE BLD COUNT W/DIF F mean platelet volume 11.0 fL 9.0-12 .4 Not Available [facility] (Lab) [address] [place], [address], 10/31/2023 12:47:51 10/31/19 24 10/31/2023 CBC/C OMPLE TE BLD COUNT W/DIF F neutrophils 54.4 % 39.0-7 2.0 Not Available [facility] (Lab) [address] [place], [address], 10/31/2023 12:47:51 10/31/19 24 10/31/2023 CBC/C OMPLE TE BLD COUNT W/DIF F lymphocytes 33.9 % 16.0-4 7.0 Not Available [facility] (Lab) [address] [place], [address], 10/31/2023 12:47:51 10/31/19 24 10/31/2023 CBC/C OMPLE TE BLD COUNT W/DIF F monocytes 7.8 % 5.0-12 .0 Not Available [facility] (Lab) [address] [place], [address], 10/31/2023 12:47:51 10/31/19 24 10/31/2023 CBC/C OMPLE TE BLD COUNT W/DIF F eosinophils 3.2 % 1.0-7. 0 Not Available [facility] (Lab) [address] [place], [address], 10/31/2023 12:47:51 10/31/19 24 10/31/2023 CBC/C OMPLE TE BLD COUNT W/DIF F basophils 0.5 % 0.0-2. 0 Not Available [facility] (Lab) [address] [place], [address], 10/31/2023 12:47:51 10/31/19 24 10/31/2023 CBC/C OMPLE TE BLD COUNT W/DIF F immature granulocytes 0.2 % 0.00-0 .50 Not Available [facility] (Lab) [address] [place], [address], 10/31/2023 12:47:51 10/31/19 24 10/31/2023 CBC/C OMPLE TE BLD COUNT W/DIF F neutrophils, absolute count 3.21 x10'3 /uL 1.5-8. 0 Not Available [facility] (Lab) [address] [facility] [place], [address], 10/31/2023 12:47:51 10/31/19 24 10/31/2023 CBC/C OMPLE TE BLD COUNT W/DIF F lymphocytes, absolute count 2.00 x10'3 /uL 1.07-3 .43 Not Available [facility] (Lab) [address] [facility] [place], [address], 10/31/2023 12:47:51 10/31/19 24 10/31/2023 CBC/C OMPLE TE BLD COUNT W/DIF F monocytes, absolute count 0.46 x10'3 /uL 0.29-0 .99 Not Available [facility] (Lab) [address] [place], [address], 10/31/2023 12:47:51 10/31/19 24 10/31/2023 CBC/C OMPLE TE BLD COUNT W/DIF F eosinophils, absolute count 0.19 x10'3 /uL 0.02-0 .53 Not Available [facility] (Lab) [address] [place], [address], 10/31/2023 12:47:51 10/31/19 24 10/31/2023 CBC/C OMPLE TE BLD COUNT W/DIF F basophils, absolute count 0.03 x10'3 /uL 0.01-0 .08 Not Available [facility] (Lab) [address] [place], [address], 10/31/2023 12:47:51 10/31/19 24 10/31/2023 CBC/C OMPLE TE BLD COUNT W/DIF F immature granulocytes ,absolute 0.01 x10'3 /uL 0.00-0 .05 Not Available [facility] (Lab) [address] [place], [address], 10/31/2023 12:47:51 10/31/19 24 10/31/2023 CBC/C OMPLE TE BLD COUNT W/DIF F nucleated red blood cells 0.0 % -0 Not Available [facility] (Lab) [address] [place], [address], 10/31/2023 12:47:51 10/31/19 24 10/31/2023 CBC/C OMPLE TE BLD COUNT W/DIF F NRBC# 0.00 x10'3 /uL Not Available [facility] (Lab) [address] [place], [address], 10/31/2023 12:47:51 10/31/19 24 10/31/2023 LIPID PANEL cholesterol 129 mg/dL 140-19 9 low NIH ESTER NSUS RECOM MENDA TION FOR CARYN STERO L: ADULT CHILD LOW RISK: <200 <170 BORDE RLINE : <200- 239 ----- HIGH RISK: >240 >200 Not Available [facility] (Lab) [address] [place], [address], 10/31/2023 13:35:40 10/31/19 24 10/31/2023 LIPID PANEL triglyceride s 117 mg/dL 0-150 NIH ESTER NSUS REPOR T RECOM MENDA TION FOR TRIGL YCERI KIMI: ADULT CHILD LOW RISK: <150 ----- BODER LINE: 150-1 99 ----- HIGH RISK: >200 ----- Not Available [facility] (Lab) [address] [place], [address], 10/31/2023 13:35:40 10/31/19 24 10/31/2023 LIPID PANEL HDL cholesterol 57 mg/dL 40- Not Available [facility] (Lab) [address] [place], [address], 10/31/2023 13:35:40 10/31/19 24 10/31/2023 LIPID PANEL LDL cholesterol, calculated 49 mg/dL 0-130 NIH ESTER NSUS REPOR T RECOM MENDA TIONS FOR LDL: ADULT CHILD LOW RISK <130 <110 (OPTI MAL LDL) <100 ----- BORDE RLINE : 130-1 59 ----- HIGH RISK: >160 >130 A TRIGL YCERI DE RESUL T >400 INVAL IDATE S THE CALCU LATIO N FOR LDL FRACT IONAT ION - THE LDL RESUL T WILL NOT BE REPOR DAYANNA. Not Available [facility] (Lab) [address] [place], [address], 10/31/2023 13:35:40 10/31/19 24 10/31/2023 COMPR EHENS MELVIN METAB OLIC PANEL sodium 142 mmol/ L 137-14 5 Not Available [facility] (Lab) [address] [place], [address], 10/31/2023 13:35:51 10/31/19 24 10/31/2023 COMPR EHENS MELVIN METAB OLIC PANEL potassium 3.2 mmol/ L 3.5-5. 1 low Not Available [facility] (Lab) [address] [place], [address], 10/31/2023 13:35:51 10/31/19 24 10/31/2023 COMPR EHENS MELVIN METAB OLIC PANEL chloride 111 mmol/ L 98-107 high Not Available [facility] (Lab) [address] [place], [address], 10/31/2023 13:35:51 10/31/19 24 10/31/2023 COMPR EHENS MELVIN METAB OLIC PANEL carbon dioxide 25 mmol/ L 22-30 Not Available [facility] (Lab) [address] [place], [address], 10/31/2023 13:35:51 10/31/19 24 10/31/2023 COMPR EHENS MELVIN METAB OLIC PANEL anion gap 9.2 mmol/ L 14-22 low Not Available [facility] (Lab) [address] [place], [address], 10/31/2023 13:35:51 10/31/19 24 10/31/2023 COMPR EHENS MELVIN METAB OLIC PANEL glucose 62 mg/dL 70-99 low Not Available [facility] (Lab) [address] [place], [address], 10/31/2023 13:35:51 10/31/19 24 10/31/2023 COMPR EHENS MELVIN METAB OLIC PANEL BUN 13 mg/dL 8-19 Not Available [facility] (Lab) [address] [place], [address], 10/31/2023 13:35:51 10/31/19 24 10/31/2023 COMPR EHENS MELVIN METAB OLIC PANEL creatinine 0.90 mg/dL 0.66-1 .25 Not Available [facility] (Lab) [address] [place], [address], 10/31/2023 13:35:51 10/31/19 24 10/31/2023 COMPR EHENS MELVIN METAB OLIC PANEL GFR 60 Refer ence Range : [place] ge GFR Healt hy Adult : >60 mL/mi n/1.7 3 m2 Chron ic Kidne y Disea se: 15-60 mL/mi n/1.7 3 m2 Kidne y Failu re: <15/m L/min /1.73 m2 www.[email or web address]. nih.g ov The MDRD study equat ion has not been valid ated in child cee <18 years of age; pregn ant women ; the elder ly >85 years of age; or in some racia l or ethni c subgr oups, such as Hispa nics. Outsi de the valid ated vane eters , estim ated GFR is less accur ate, requi ring clini flor judgm ent on a case- by-ca se basis . Clini flor inter preta tion for other races and ages must be made by the clini nikhil. The MDRD study equat ion has not been valid ated for the evalu ation of serum creat inine relat ed to nutri yesy l statu s or medic ation usage . For perso ns <18 years of age, a pedia tric GFR calcu lator is avail able on the [facility] websi te: [email or web address] :[email or web address] [email or web address] [email or web address] rg/pr ofess ional s/kdo qi/gf r_cal culat or Not Available [facility] (Lab) [address] [place], [address], 10/31/2023 13:35:51 10/31/19 24 10/31/2023 COMPR EHENS MELVIN METAB OLIC PANEL alkaline phosphatase 78 U/L 38-126 Not Available [facility] (Lab) [address] [place], [address], 10/31/2023 13:35:51 10/31/19 24 10/31/2023 COMPR EHENS MELVIN METAB OLIC PANEL alanine aminotransfe rase 14 U/L 0-35 Not Available [facility] (Lab) [address] [place], [address], 10/31/2023 13:35:51 10/31/19 24 10/31/2023 COMPR EHENS MELVIN METAB OLIC PANEL aspartate aminotransfe rase 22 U/L 15-37 Not Available [facility] (Lab) [address] [place], [address], 10/31/2023 13:35:51 10/31/19 24 10/31/2023 COMPR EHENS MELVIN METAB OLIC PANEL bilirubin, total 0.40 mg/dL 0.20-1 .30 Not Available [facility] (Lab) [address] [place], [address], 10/31/2023 13:35:51 10/31/19 24 10/31/2023 COMPR EHENS MELVIN METAB OLIC PANEL calcium 8.5 mg/dL 8.4-10 .2 Not Available [facility] (Lab) [address] [place], [address], 10/31/2023 13:35:51 10/31/19 24 10/31/2023 COMPR EHENS MELVIN METAB OLIC PANEL total protein 5.6 g/dL 6.3-8. 2 low Not Available [facility] (Lab) [address] [place], [address], 10/31/2023 13:35:51 10/31/19 24 10/31/2023 COMPR EHENS MELVIN METAB OLIC PANEL albumin 3.1 g/dL 3.0-4. 4 Not Available [facility] (Lab) [address] [place], [address], 10/31/2023 13:35:51 10/31/19 24 10/31/2023 COMPR EHENS MELVIN METAB OLIC PANEL globulin 2.5 g/dL 2.6-4. 2 low Not Available [facility] (Lab) [address] [place], [address], 10/31/2023 13:35:51 10/31/19 24 10/31/2023 COMPR EHENS MELVIN METAB OLIC PANEL A/G ratio 1.2 ratio 1.0-2. 0 Not Available [facility] (Lab) [address] [place], [address], 10/31/2023 13:35:51 10/31/19 24 10/31/2023 TSH W/REF CAL FT4 TSH with reflex free T4 1.180 uIU/m L 0.465- 4.680 Not Available [facility] (Lab) [address] [place], [address], 10/31/2023 14:11:45 10/31/19 24 10/31/2023 VITAM IN D 25-HY DROXY vd25oh 22.5 NG/mL 30-100 low Vitam in D Statu s: Defic ient: <20 ng/mL Insuf ficie nt: 20-29 ng/mL Suffi cient : 30-10 0 ng/mL Not Available [facility] (Lab) [address] [place], [address], 10/31/2023 14:31:42 10/31/19 24 10/31/2023 VITAM IN B12 (TAMMY NIELS ) vb12 466 pg/mL 239-93 1 Not Available [facility] (Lab) [address] [place], [address], 10/31/2023 15:21:45 10/31/19 24 10/31/2023 FOLAT E, SERUM /PLAS MA folate 11.5 NG/mL 2.76-2 0.0 Not Available [facility] (Lab) [address] [place], [address], 10/31/2023 15:21:50 11/16/19 24 11/16/2023 COMPR EHENS MELVIN METAB OLIC PANEL sodium 139 mmol/ L 137-14 5 Not Available [facility] (Lab) [address] [place], [address], 11/16/2023 14:15:15 11/16/19 24 11/16/2023 COMPR EHENS MELVIN METAB OLIC PANEL potassium 3.9 mmol/ L 3.5-5. 1 Not Available [facility] (Lab) [address] [place], [address], 11/16/2023 14:15:15 11/16/19 24 11/16/2023 COMPR EHENS MELVIN METAB OLIC PANEL chloride 112 mmol/ L 98-107 high Not Available [facility] (Lab) [address] [place], [address], 11/16/2023 14:15:15 11/16/19 24 11/16/2023 COMPR EHENS MELVIN METAB OLIC PANEL carbon dioxide 25 mmol/ L 22-30 Not Available [facility] (Lab) [address] [place], [address], 11/16/2023 14:15:15 11/16/19 24 11/16/2023 COMPR EHENS MELVIN METAB OLIC PANEL anion gap 5.9 mmol/ L 14-22 low Not Available [facility] (Lab) [address] [place], [address], 11/16/2023 14:15:15 11/16/19 24 11/16/2023 COMPR EHENS MELVIN METAB OLIC PANEL glucose 88 mg/dL 70-99 Not Available [facility] (Lab) [address] [place], [address], 11/16/2023 14:15:15 11/16/19 24 11/16/2023 COMPR EHENS MELVIN METAB OLIC PANEL BUN 20 mg/dL 8-19 high Not Available [facility] (Lab) [address] [place], [address], 11/16/2023 14:15:15 11/16/19 24 11/16/2023 COMPR EHENS MEVLIN METAB OLIC PANEL creatinine 0.99 mg/dL 0.66-1 .25 Not Available [facility] (Lab) [address] [place], [address], 11/16/2023 14:15:15 11/16/19 24 11/16/2023 COMPR EHENS MELVIN METAB OLIC PANEL GFR 53 Refer ence Range : [place] ge GFR Healt hy Adult : >60 mL/mi n/1.7 3 m2 Chron ic Kidne y Disea se: 15-60 mL/mi n/1.7 3 m2 Kidne y Failu re: <15/m L/min /1.73 m2 www.[email or web address] iddk. nih.g ov The MDRD study equat ion has not been valid ated in child cee <18 years of age; pregn ant women ; the elder ly >85 years of age; or in some racia l or ethni c subgr oups, such as Hispa nics. Outsi de the valid ated vane eters , estim ated GFR is less accur ate, requi ring clini flor judgm ent on a case- by-ca se basis . Clini flor inter preta tion for other races and ages must be made by the clini nikhil. The MDRD study equat ion has not been valid ated for the evalu ation of serum creat inine relat ed to nutri yesy l statu s or medic ation usage . For perso ns <18 years of age, a pedia tric GFR calcu lator is avail able on the [facility] websi te: https ://vickie w.kid abdon.o rg/pr ofess ional s/kdo qi/gf r_cal culat or Not Available [facility] (Lab) [address] [place], [address], 11/16/2023 14:15:15 11/16/19 24 11/16/2023 COMPR EHENS MELVIN METAB OLIC PANEL alkaline phosphatase 74 U/L 38-126 Not Available [facility] (Lab) [address] [place], [address], 11/16/2023 14:15:15 11/16/19 24 11/16/2023 COMPR EHENS MELVIN METAB OLIC PANEL alanine aminotransfe rase 15 U/L 0-35 Not Available [facility] (Lab) [address] [place], [address], 11/16/2023 14:15:15 11/16/19 24 11/16/2023 COMPR EHENS MELVIN METAB OLIC PANEL aspartate aminotransfe rase 25 U/L 15-37 Not Available [facility] (Lab) [address] [place], [address], 11/16/2023 14:15:15 11/16/19 24 11/16/2023 COMPR EHENS MELVIN METAB OLIC PANEL bilirubin, total 0.30 mg/dL 0.20-1 .30 Not Available [facility] (Lab) [address] [place], [address], 11/16/2023 14:15:15 11/16/19 24 11/16/2023 COMPR EHENS MELVIN METAB OLIC PANEL calcium 8.5 mg/dL 8.4-10 .2 Not Available [facility] (Lab) [address] [place], [address], 11/16/2023 14:15:15 11/16/19 24 11/16/2023 COMPR EHENS MELVIN METAB OLIC PANEL total protein 5.4 g/dL 6.3-8. 2 low Not Available [facility] (Lab) [address] [place], [address], 11/16/2023 14:15:15 11/16/19 24 11/16/2023 COMPR EHENS MELVIN METAB OLIC PANEL albumin 3.2 g/dL 3.0-4. 4 Not Available [facility] (Lab) [address] [place], [address], 11/16/2023 14:15:15 11/16/19 24 11/16/2023 COMPR EHENS MELVIN METAB OLIC PANEL globulin 2.2 g/dL 2.6-4. 2 low Not Available [facility] (Lab) [address] [place], [address], 11/16/2023 14:15:15 11/16/19 24 11/16/2023 COMPR EHENS MELVIN METAB OLIC PANEL A/G ratio 1.5 ratio 1.0-2. 0 Not Available [facility] (Lab) [address] [place], [address], 11/16/2023 14:15:15 03/11/20 24 03/11/2024 urina lysis , dipst ick Leukocytes (reference range: negative leander/ l) Negati ve Not Available [facility] [address] , [place], [address], 03/11/2024 14:58:59 03/11/20 24 03/11/2024 urina lysis , dipst ick Nitrite (reference rage: negative mg/dl) negati ve Not Available [facility] [address], [place], [address], 03/11/2024 14:58:59 03/11/20 24 03/11/2024 urina lysis , dipst ick Urobilinogen (reference range: 0.2-1 mg/dl) 0.2 Not Available [facility] [address] [facility] [address], [place], [address], 03/11/2024 14:58:59 03/11/20 24 03/11/2024 urina lysis , dipst ick Protein (reference range: negative mg/dl) Negati ve Not Available [facility] [address], [place], [address], 03/11/2024 14:58:59 03/11/20 24 03/11/2024 urina lysis , dipst ick pH (reference range: 5-7) 6.0 Not Available [facility] [address] [facility] [address], [place], [address], 03/11/2024 14:58:59 03/11/20 24 03/11/2024 urina lysis , dipst ick Blood (reference range: negative Shaun/ l) Negati ve Not Available [facility] [address] [facility] [address], [place], [address], 03/11/2024 14:58:59 03/11/20 24 03/11/2024 urina lysis , dipst ick Specific [place] (reference range: 1.005-1.030) 1.010 Not Available [facility] [address], [place], [address], 03/11/2024 14:58:59 03/11/20 24 03/11/2024 urina lysis , dipst ick Ketone (reference range: negative mg/dl) Negati ve Not Available [facility] [address], [place], [address], 03/11/2024 14:58:59 03/11/20 24 03/11/2024 urina lysis , dipst ick Bilirubin (reference range: negative mg/dl) Negati ve Not Available [facility] [address] [facility] [address], [place], [address], 03/11/2024 14:58:59 03/11/20 24 03/11/2024 urina lysis , dipst ick Glucose (reference range: negative mg/dl) Negati ve Not Available [facility] [address], [place], [address], 03/11/2024 14:58:59 03/11/20 24 03/11/2024 urina lysis , dipst ick Appearance Clear Not Available [facility] [address] [facility] [address], [place], [address], 03/11/2024 14:58:59 03/11/20 24 03/11/2024 urina lysis , dipst ick Color Pale Yellow Not Available [facility] [address] [facility] [address], [place], [address], 03/11/2024 14:58:59 06/03/20 24 06/03/2024 CBC/C OMPLE TE BLD COUNT W/DIF F white blood cells 5.7 x10'3 /uL 4.2-10 .8 Not Available [facility] ([facility]) [address] [place], [address], 06/03/2024 17:28:58 06/03/2006/03/2024 CBC/C OMPLE TE BLD COUNT W/DIF F red blood cells 3.64 x10'6 /uL 3.80-5 .20 low Not Available [facility] (Lab) [address] [place], [address], 06/03/2024 17:28:58 06/03/2006/03/2024 CBC/C OMPLE TE BLD COUNT W/DIF F hemoglobin 11.2 g/dL 12.0-1 5.6 low Not Available [facility] (Lab) [address] [place], [address], 06/03/2024 17:28:58 06/03/2006/03/2024 CBC/C OMPLE TE BLD COUNT W/DIF F hematocrit 35.2 % 35.7-4 5.7 low Not Available [facility] (Lab) [address] [place], [address], 06/03/2024 17:28:58 06/03/2006/03/2024 CBC/C OMPLE TE BLD COUNT W/DIF F mean red cell volume 96.7 fL 82.0-9 9.0 Not Available [facility] (Lab) [address] [place], [address], 06/03/2024 17:28:58 06/03/2006/03/2024 CBC/C OMPLE TE BLD COUNT W/DIF F mean red cell hemoglobin 30.8 pg 27.0-3 3.0 Not Available [facility] (Lab) [address] [place], [address], 06/03/2024 17:28:58 06/03/2006/03/2024 CBC/C OMPLE TE BLD COUNT W/DIF F mean RBC HGB concentratio n 31.8 g/dL 31.0-3 6.0 Not Available [facility] (Lab) [address] [place], [address], 06/03/2024 17:28:58 06/03/2006/03/2024 CBC/C OMPLE TE BLD COUNT W/DIF F red cell distribution width 13.7 % 11.8-1 5.5 Not Available [facility] (Lab) [address] [place], [address], 06/03/2024 17:28:58 06/03/2006/03/2024 CBC/C OMPLE TE BLD COUNT W/DIF F platelets 236 x10'3 /uL 150-40 0 Not Available [facility] (Lab) [address] [place], [address], 06/03/2024 17:28:58 06/03/2006/03/2024 CBC/C OMPLE TE BLD COUNT W/DIF F mean platelet volume 10.5 fL 9.0-12 .4 Not Available [facility] (Lab) [address] [place], [address], 06/03/2024 17:28:58 06/03/2006/03/2024 CBC/C OMPLE TE BLD COUNT W/DIF F neutrophils 54.4 % 39.0-7 2.0 Not Available [facility] (Lab) [address] [place], [address], 06/03/2024 17:28:58 06/03/2006/03/2024 CBC/C OMPLE TE BLD COUNT W/DIF F lymphocytes 36.1 % 16.0-4 7.0 Not Available [facility] (Lab) [address] [place], [address], 06/03/2024 17:28:58 06/03/2006/03/2024 CBC/C OMPLE TE BLD COUNT W/DIF F monocytes 6.0 % 5.0-12 .0 Not Available [facility] (Lab) [address] [place], [address], 06/03/2024 17:28:58 06/03/2006/03/2024 CBC/C OMPLE TE BLD COUNT W/DIF F eosinophils 2.8 % 1.0-7. 0 Not Available [facility] (Lab) [address] [place], [address], 06/03/2024 17:28:58 06/03/2006/03/2024 CBC/C OMPLE TE BLD COUNT W/DIF F basophils 0.5 % 0.0-2. 0 Not Available [facility] (Lab) [address] [place], [address], 06/03/2024 17:28:58 06/03/2006/03/2024 CBC/C OMPLE TE BLD COUNT W/DIF F immature granulocytes 0.2 % 0.00-0 .50 Not Available [facility] (Lab) [address] [place], [address], 06/03/2024 17:28:58 06/03/2006/03/2024 CBC/C OMPLE TE BLD COUNT W/DIF F neutrophils, absolute count 3.07 x10'3 /uL 1.5-8. 0 Not Available [facility] (Lab) [address] [place], [address], 06/03/2024 17:28:58 06/03/2006/03/2024 CBC/C OMPLE TE BLD COUNT W/DIF F lymphocytes, absolute count 2.04 x10'3 /uL 1.07-3 .43 Not Available [facility] (Lab) [address] [place], [address], 06/03/2024 17:28:58 06/03/2006/03/2024 CBC/C OMPLE TE BLD COUNT W/DIF F monocytes, absolute count 0.34 x10'3 /uL 0.29-0 .99 Not Available [facility] (Lab) [address] [place], [address], 06/03/2024 17:28:58 06/03/2006/03/2024 CBC/C OMPLE TE BLD COUNT W/DIF F eosinophils, absolute count 0.16 x10'3 /uL 0.02-0 .53 Not Available [facility] (Lab) [address] [place], [address], 06/03/2024 17:28:58 06/03/2006/03/2024 CBC/C OMPLE TE BLD COUNT W/DIF F basophils, absolute count 0.03 x10'3 /uL 0.01-0 .08 Not Available [facility] (Lab) [address] [place], [address], 06/03/2024 17:28:58 06/03/2006/03/2024 CBC/C OMPLE TE BLD COUNT W/DIF F immature granulocytes ,absolute 0.01 x10'3 /uL 0.00-0 .05 Not Available [facility] (Lab) [address] [place], [address], 06/03/2024 17:28:58 06/03/2006/03/2024 CBC/C OMPLE TE BLD COUNT W/DIF F nucleated red blood cells 0.0 % -0 Not Available [facility] (Lab) [address] [place], [address], 06/03/2024 17:28:58 06/03/2006/03/2024 CBC/C OMPLE TE BLD COUNT W/DIF F NRBC# 0.00 x10'3 /uL Not Available [facility] (Lab) [address] [place], [address], 06/03/2024 17:28:58 06/03/2006/03/2024 VITAM IN D 25-HY DROXY vd25oh 32.3 NG/mL 30-100 Vitam in D Statu s: Defic ient: <20 ng/mL Insuf ficie nt: 20-29 ng/mL Suffi cient : 30-10 0 ng/mL Not Available [facility] (Lab) [address] [place], [address], 06/03/2024 21:05:49 06/03/2006/03/2024 VITAM IN B12 (TAMMY NIELS ) vb12 564 pg/mL 239-93 1 Not Available [facility] (Lab) [address] [place], [address], 06/03/2024 21:15:01 06/03/2006/03/2024 FOLAT E, SERUM /PLAS MA folate >20.0 NG/mL 2.76-2 0.0 Not Available [facility] (Lab) [address] [place], [address], 06/03/2024 21:15:02 06/03/2006/03/2024 LIPID PANEL cholesterol 140 mg/dL 140-19 9 NIH ESTER NSUS RECOM MENDA TION FOR CARYN STERO L: ADULT CHILD LOW RISK: <200 <170 BORDE RLINE : <200- 239 ----- HIGH RISK: >240 >200 Not Available [facility] (Lab) [address] [place], [address], 06/03/2024 21:52:01 06/03/2006/03/2024 LIPID PANEL triglyceride s 154 mg/dL 0-150 high NIH ESTER NSUS REPOR T RECOM MENDA TION FOR TRIGL YCERI KIMI: ADULT CHILD LOW RISK: <150 ----- BODER LINE: 150-1 99 ----- HIGH RISK: >200 ----- Not Available [facility] (Lab) [address] [place], [address], 06/03/2024 21:52:01 06/03/2006/03/2024 LIPID PANEL HDL cholesterol 65 mg/dL 40- Not Available [facility] (Lab) [address] [place], [address], 06/03/2024 21:52:01 06/03/2006/03/2024 LIPID PANEL LDL cholesterol, calculated 44 mg/dL 0-130 NIH ESTER NSUS REPOR T RECOM MENDA TIONS FOR LDL: ADULT CHILD LOW RISK <130 <110 (OPTI MAL LDL) <100 ----- BORDE RLINE : 130-1 59 ----- HIGH RISK: >160 >130 A TRIGL YCERI DE RESUL T >400 INVAL IDATE S THE CALCU LATIO N FOR LDL FRACT IONAT ION - THE LDL RESUL T WILL NOT BE REPOR DAYANNA. Not Available [facility] (Lab) [address] [place], [address], 06/03/2024 21:52:01 06/03/2006/03/2024 COMP MET PANEL /LIVE R sodium 136 mmol/ L 137-14 5 low Not Available [facility] (Lab) [address] [place], [address], 06/03/2024 21:52:06 06/03/20 24 06/03/2024 COMP MET PANEL /LIVE R potassium 3.9 mmol/ L 3.5-5. 1 Not Available [facility] (Lab) [address] [place], [address], 06/03/2024 21:52:06 06/03/2006/03/2024 COMP MET PANEL /LIVE R chloride 106 mmol/ L 98-107 Not Available [facility] (Lab) [address] [place], [address], 06/03/2024 21:52:06 06/03/20 24 06/03/2024 COMP MET PANEL /LIVE R carbon dioxide 27 mmol/ L 22-30 Not Available [facility] (Lab) [address] [place], [address], 06/03/2024 21:52:06 06/03/2006/03/2024 COMP MET PANEL /LIVE R anion gap 6.9 mmol/ L 14-22 low Not Available [facility] (Lab) [address] [place], [address], 06/03/2024 21:52:06 06/03/2006/03/2024 COMP MET PANEL /LIVE R glucose 83 mg/dL 70-99 Not Available [facility] (Lab) [address] [place], [address], 06/03/2024 21:52:06 06/03/2006/03/2024 COMP MET PANEL /LIVE R BUN 18 mg/dL 8-19 Not Available [facility] (Lab) [address] [place], [address], 06/03/2024 21:52:06 06/03/2006/03/2024 COMP MET PANEL /LIVE R creatinine 1.17 mg/dL 0.66-1 .25 Not Available [facility] (Lab) [address] [place], [address], 06/03/2024 21:52:06 06/03/2006/03/2024 COMP MET PANEL /LIVE R GFR 44 Refer ence Range : [place] ge GFR Healt hy Adult : >60 mL/mi n/1.7 3 m2 Chron ic Kidne y Disea se: 15-60 mL/mi n/1.7 3 m2 Kidne y Failu re: <15/m L/min /1.73 m2 [email or web address] [email or web address] nih.g ov The MDRD study equat ion has not been valid ated in child cee <18 years of age; pregn ant women ; the elder ly >85 years of age; or in some racia l or ethni c subgr oups, such as Hispa nics. Outsi de the valid ated vane eters , estim ated GFR is less accur ate, requi ring clini flor judgm ent on a case- by-ca se basis . Clini flor inter preta tion for other races and ages must be made by the clini nikhil. The MDRD study equat ion has not been valid ated for the evalu ation of serum creat inine relat ed to nutri yesy l statu s or medic ation usage . For perso ns <18 years of age, a pedia tric GFR calcu lator is avail able on the [facility] websi te: https ://ww w.kid abdon.o rg/pr ofess ional s/kdo qi/gf r_cal culat or Not Available [facility] (Lab) [address] [place], [address], 06/03/2024 21:52:06 06/03/2006/03/2024 COMP MET PANEL /LIVE R alkaline phosphatase 79 U/L 38-126 Not Available [facility] (Lab) [address] [place], [address], 06/03/2024 21:52:06 06/03/20 24 06/03/2024 COMP MET PANEL /LIVE R alanine aminotransfe rase 17 U/L 0-35 Not Available [facility] (Lab) [address] [place], [address], 06/03/2024 21:52:06 06/03/20 24 06/03/2024 COMP MET PANEL /LIVE R aspartate aminotransfe rase 23 U/L 15-37 Not Available [facility] (Lab) [address] [place], [address], 06/03/2024 21:52:06 06/03/20 24 06/03/2024 COMP MET PANEL /LIVE R bilirubin, total 0.20 mg/dL 0.20-1 .30 Not Available [facility] (Lab) [address] [place], [address], 06/03/2024 21:52:06 06/03/2006/03/2024 COMP MET PANEL /LIVE R bilirubin, conjugated (direct) 0.00 mg/dL 0.00-0 .30 Not Available [facility] (Lab) [address] [place], [address], 06/03/2024 21:52:06 06/03/2006/03/2024 COMP MET PANEL /LIVE R biliurubin,u ncong. (indirect) 0.00 mg/dL 0.00-1 .1 Not Available [facility] (Lab) [address] [place], [address], 06/03/2024 21:52:06 06/03/2006/03/2024 COMP MET PANEL /LIVE R calcium 8.7 mg/dL 8.4-10 .2 Not Available [facility] (Lab) [address] [place], [address], 06/03/2024 21:52:06 06/03/2006/03/2024 COMP MET PANEL /LIVE R total protein 5.3 g/dL 6.3-8. 2 low Not Available [facility] (Lab) [address] [place], [address], 06/03/2024 21:52:06 06/03/2006/03/2024 COMP MET PANEL /LIVE R albumin 3.4 g/dL 3.0-4. 4 Not Available [facility] (Lab) [address] [place], [address], 06/03/2024 21:52:06 06/03/2006/03/2024 COMP MET PANEL /LIVE R globulin 1.9 g/dL 2.6-4. 2 low Not Available [facility] (Lab) [address] [place], [address], 06/03/2024 21:52:06 06/03/2006/03/2024 COMP MET PANEL /LIVE R A/G ratio 1.8 ratio 1.0-2. 0 Not Available [facility] (Lab) [address] [place], [address], 06/03/2024 21:52:06 06/03/20 24 06/03/2024 TSH W/REF CAL FT4 TSH with reflex free T4 1.860 uIU/m L 0.465- 4.680 Not Available [facility] (Lab) [address] [place], [address], 06/03/2024 21:58:21 02/28/2002/28/2024 imagi ng/ramya ruizos tic resul t No observ ation record ed. [facility] [address] [place], [address], 02/28/2024 09:19:08 Result Notes None recorded. Problems Name Problem SNOMED Code Status Onset Date Resolution Date Notes Provider Name and Address Organization Details Recorded Time Lymphedema of lower extremity 687063079 Active 2022 Not Available [facility] 3 06:31:28 Rosacea 521719406 Active 2022 Not Available [facility] 3 06:31:28 Iron deficiency 09160834 Active 2022 Not Available [facility] 3 06:31:28 Acute urinary tract infection 492256830 Active 2022 Not Available [facility] 3 06:31:28 Urinary symptoms 251555969 Active 2022 Not Available [facility] 3 06:31:28 Vaginitis 99140733 Active 2022 Not Available [facility] 3 06:31:28 Fracture of neck of femur 6809374 Active 2022 Not Available [facility] 3 06:31:28 Serum vitamin B12 below reference range 654779312 Active 2023 Melina graf MD [address] [facility], [facility] [address], [place], [address] , [facility], [facility] 4 15:15:49 Serum potassium level below reference range 767356109 Active 2023 LISSA Wheat, [facility] 4 11:27:57 Iron deficiency anemia 67671069 Active 2023 LISSA Wheat, [facility] 4 11:29:07 Chronic kidney disease 780858053 Active 2023 LISSA Wheat, [facility] 4 11:59:40 Candidiasi s of skin 26483801 Active 2023 LISSA Wheat, [facility] 4 15:21:44 Hypoprotei nemia 6277780 Active 2023 Melina graf MD [address], [facility] [address], [place], [address] , [facility], [facility] 4 18:17:18 Edema of lower extremity 247647760 Active 2023 Melina graf MD [address], [facility] [address], [place], [address] , [facility], [facility] 4 14:33:05 Essential hypertensi on 63232295 Active 2024 Melina graf MD [address], [facility] [address], [place], [address] , [facility] 5 12:08:15 Electrocar diogram abnormal 844542942 Active 2024 VINI Oliveira null, [facility] 5 09:41:20 Chronic obstructiv e pulmonary disease 92400261 Active Not Available [facility] 3 06:31:28 Pain in throat 705109039 Active 2021 Not Available [facility] 3 06:31:28 Cobalamin deficiency 794514482 Active 2021 Not Available [facility] 3 06:31:28 Edema 655360849 Completed Not Available [facility] 3 04:52:36 Anemia 654187122 Active 2021 Not Available [facility] 3 06:31:28 Vitamin D deficiency 11886201 Active Not Available [facility] 3 06:31:28 Sinusitis 78175922 Completed 201601/16/2017 Not Available [facility] 3 04:52:36 Disorder of vitamin B12 449755777 Active 2020 Not Available [facility] 3 06:31:28 Contact dermatitis 85497104 Completed Not Available [facility] 3 04:52:36 Hypothyroi dism 45949587 Active Not Available [facility] 3 06:31:28 Eczema 14668707 Active Not Available [facility] 3 06:31:28 Vitamin B deficiency 64404575 Active Not Available [facility] 3 06:31:28 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 Procedures Surgical History Date Name Laterality Status Provider Name and Address Organization Details Recorded Time 03/11/20 24 Medicare Wellness CPT Code, subsequent completed Thompson Quiñones LPN [employer] 03/04/2024 12:53:51 01/18/20 23 Hip surgery completed VINI Oliveira [employer] 10/11/2023 15:15:58 Colonoscopy completed Not Available [facility] 11/01/2022 04:44:20 Cholecystectomy completed Not Available [facility] 11/01/2022 04:44:20 Hysterectomy completed Not Available [facility] 11/01/2022 04:44:20 excision of group of lymph nodes completed VINI Oliveira [employer] 10/11/2023 15:16:41 Imaging Results Imaging Date Name Status LastModified by Organiz ation Details LastModified Time 02/28/2024 imaging/diagn ostic result active [facility] [address] [place], [address], 02/28/2024 09:19:08 Procedure Notes None recorded. Medical Equipment None Reported. Allergies Allergen ID Allergen Name Allergen Category Reaction Reaction Severity Criticality Documentation Date Start Date Code Code System Note Provider Name and Address Organization Details Recorded Time 13764 ergocalci ferol medicatio n itching rash swelling moderate mild mild low 03/11/20242023 4018 RxNorm ADAM Myles, MD [employer] [facility] [employer] 4 14:35:00 8184 Terramyci n medicatio n rash Not available Not available 11/01/2022 09997 4 RxNorm Not Available [facility] 3 05:04:15 8185 Keflex medicatio n rash Not available Not available 11/01/2022 11263 7 RxNorm Not Available [facility] 3 05:04:15 8186 erythromy jeimy medicatio n rash Not available Not available 11/01/2022 4053 RxNorm Not Available [facility] 3 05:04:16 8187 amoxicill in medicatio n rash Not available Not available 11/01/2022 723 RxNorm Not Available [facility] 3 05:04:16 Medications Name Sig Start Date Stop Date Status Note LastModified by Organization Details LastModified Time fluconazole 100 mg tablet 07/16 completed Not Available Not Available Not Available prednisone 10 mg tablet 07/23 completed Not Available Not Available Not Available fluconazole 150 mg tablet TAKE 1 TABLET BY MOUTH ONCE 03/11 completed Not Available Not Available Not Available fluconazole 200 mg tablet 07/19 completed Not Available Not Available Not Available doxycycline hyclate 50 mg capsule TAKE 1 CAPSULE BY MOUTH EVERY DAY 05/10 completed Not Available Not Available Not Available clindamycin HCl 150 mg capsule 01/20 completed Not Available Not Available Not Available acetaminoph en 300 mg-codeine 15 mg tablet TAKE 1 TABLET BY MOUTH EVERY 6 HOURS NEEDED FOR PAIN 07/17 completed Not Available Not Available Not Available acetaminoph en 300 mg-codeine 30 mg tablet 07/23 completed Not Available Not Available Not Available ciprofloxac in 250 mg tablet TAKE 1 TABLET BY MOUTH EVERY 12 HOURS FOR 5 DAYS 05/10 completed Not Available Not Available Not Available ciprofloxac in 500 mg tablet TAKE 1 TABLET BY MOUTH EVERY 12 HOURS FOR 5 DAYS 07/18 completed Not Available Not Available Not Available sulfamethox azole 800 mg-trimetho prim 160 mg tablet TAKE 1 TABLET EVERY 12 HOURS FOR 10 DAYS. 07/23 completed Not Available Not Available Not Available ketorolac 0.5 % eye drops INET 1 DROP IN RIGHT EYE THREE TIMES DAILY BEGINNING 3 DAYS BEFORE SURGERY 08/09 completed Not Available Not Available Not Available Kenalog 40 mg/mL suspension for injection Take 2 mL every day by injection route for 1 day. 07/22 completed [facility]# [phone] Not Available Not Available Not Available ciclopirox 8 % topical solution APPLY TO NAIL DAILY 10/11 completed Not Available Not Available Not Available prednisolon e acetate 1 % eye drops,suspe nsion INSTILL 1 DROP IN RIGHT EYE THREE TIMES DAILY BEGINNING THE DAY AFTER SURGERY 08/09 completed Not Available Not Available Not Available cyanocobala min (vit B-12) 1,000 mcg/mL injection solution Inject 1 mL every month by subcutane ous route. 03/11 completed Not Available Not Available Not Available tacrolimus 0.1 % topical ointment ABI EXT AA BID PRN active Not Available Not Available No t Available ferrous sulfate 325 mg (65 mg iron) tablet TAKE 1 TABLET BY MOUTH EVERY DAY active Not Available Not Available No t Available triamcinolo ne acetonide 0.1 % topical ointment APPLY 1 APPLICATI ON ONTO THE RASH ON THE SKIN TWICE DAILY NEEDED active Not Available Not Available No t Available ascorbate calcium (vitamin C) 500 mg tablet Take by oral route. active Not Available Not Available No t Available olopatadine 0.1 % eye drops INSTILL 1 DROP INTO AFFECTED EYE(S) BY OPHTHALMI C ROUTE 2 TIMES PER DAY AT AN INTERVAL OF 6 TO 8 HOURS 07/19 completed Not Available Not Available Not Available losartan 25 mg tablet TAKE 1 TABLET BY MOUTH EVERY DAY FOR 90 DAYS active Not Available Not Available No t Available Synthroid 75 mcg tablet TAKE 1 TABLET DAILY active Not Available Not Available No t Available Synthroid 50 mcg tablet TAKE 1 TABLET BY MOUTH EVERY DAY IN THE MORNING ON AN EMPTY STOMACH active Not Available Not Available No t Available mupirocin 2 % topical ointment 07/23 completed Not Available Not Available Not Available ergocalcife rol (vitamin D2) 1,250 mcg (50,000 unit) capsule TAKE 1 CAPSULE BY MOUTH ONE TIME PER WEEK active Not Available Not Available No t Available levofloxaci n 750 mg tablet TAKE 1 TABLET BY MOUTH EVERY DAY FOR 7 DAYS 06/10 completed Not Available Not Available Not Available methylpredn isolone 4 mg tablets in a dose pack Take by oral route as directed 07/19 completed Not Available Not Available Not Available neomycin 500 mg tablet active Not Available Not Available Not Available ipratropium bromide 42 mcg (0.06 %) nasal spray active Not Available Not Available Not Available metronidazo le 0.75 % topical gel APPLY TO FACE TWICE DAILY NEEDED active Not Available Not Available No t Available doxycycline hyclate 100 mg tablet 01/20 completed Not Available Not Available Not Available calcitriol 0.25 mcg capsule TAKE 1 CAPSULE BY MOUTH EVERY DAY FOR 90 DAYS active Not Available Not Available No t Available tobramycin 0.3 %-dexametha sone 0.1 % eye drops,suspe nsion 07/23 completed Not Available Not Available Not Available nitrofurant oin monohydrate /macrocryst als 100 mg capsule TAKE 1 CAPSULE BY MOUTH EVERY 12 HOURS 07/17 completed Not Available Not Available Not Available Nyamyc 100,000 unit/gram topical powder active Not Available Not Available Not Available Boostrix Tdap 2.5 Lf unit-8 mcg-5 Lf/0.5 mL intramuscul ar suspension active Not Available Not Available N ot Available metronidazo le 1 % topical gel APPLY 1 APPLICATI ON ONTO THE FACE TWICE DAILY active Not Available Not Available No t Available PreserVisio n AREDS active Not Available Not Available Not Available Pataday 0.2 % eye drops active Not Available Not Available Not Available Xifaxan 550 mg tablet active Not Available Not Available No t Available Eliquis 2.5 mg tablet TAKE 1 TABLET BY MOUTH TWICE A DAY FOR 35 DAYS. 07/17 completed Not Available Not Available Not Available potassium chloride ER 20 mEq tablet,exte nded release TAKE 1 TABLET BY MOUTH EVERY DAY FOR 5 DAYS 03/11 completed Not Available Not Available Not Available mecobalamin (vitamin B12) 500 mcg chewable tablet Take by oral route. active Not Available Not Available No t Available Vitals Date Recorded Body height Body mass index (BMI) Body weight Body temperature Heart rate Oxygen saturation Oxygen saturation in Arterial blood by Pulse oximetry Systolic blood pressure Diastolic blood pressure Provider Name and Address Organization Details Last Updated DateTime 3 157.48 cm 24.5 kg/m2 28591.3 8 g 97.7 [degF] 78 /min 100 % 100 % 122 mm[Hg] 78 mm[Hg] Namita Pan MA [facility] [place] 3 10:21:53 Date Recorded Body height Body mass index (BMI) Body weight Body temperature Heart rate Systolic blood pressure Diastolic blood pressure Provider Name and Address Organization Details Last Updated DateTime 4 157.48 cm 24.7 kg/m2 71060.9 7 g 97.9 [degF] 72 /min 120 mm[Hg] 78 mm[Hg] VINI Oliveira MD [employer] [facility] [place] 4 15:18:19 Date Recorded Body height Body mass index (BMI) Body weight Body temperature Heart rate Systolic blood pressure Diastolic blood pressure Provider Name and Address Organization Details Last Updated DateTime 4 157.48 cm 24.3 kg/m2 97700.7 9 g 97.9 [degF] 72 /min 120 mm[Hg] 68 mm[Hg] VINI Oliveira MD [employer] [facility] [place] 4 14:11:11 Date Recorded Pain severity - 0-10 verbal numeric rating [Score] - Reported Provider Name and Address Organization Details Last Updated DateTime 03/11/2024 5 Thompson Quiñones LPN [facility] [place] 03/11/2024 14:42:45 Date Recorded Body height Body mass index (BMI) Body weight Body temperature Heart rate Oxygen saturation Oxygen saturation in Arterial blood by Pulse oximetry Systolic blood pressure Diastolic blood pressure Provider Name and Address Organization Details Last Updated DateTime 4 157.48 cm 24.9 kg/m2 30596.5 6 g 96.8 [degF] 77 /min 99 % 99 % 134 mm[Hg] 70 mm[Hg] Nohemy Ruggiero MA MD [employer] [facility] [employer] 4 11:16:19 Date Recorded Body height Body mass index (BMI) Body weight Body temperature Heart rate Respiratory rate Oxygen saturation Oxygen saturation in Arterial blood by Pulse oximetry Pain severity - 0-10 verbal numeric rating [Score] - Reported Systolic blood pressure Diastolic blood pressure Provider Name and Address Organization Details Last Updated DateTime 5 157.48 cm 24.3 kg/m2 28555.7 9 g 98 [degF] 56 /min 16 /min 98 % 98 % 0 142 mm[Hg] 70 mm[Hg] Thompson Quiñones LPN MD [employer] [facility] [employer] 5 11:34:12 Social History Question Answer Notes LastModified by Organization Details LastModified Time Tobacco Smoking Status Never Smoker Not Available [facility] 11/01/2022 04:13:32 Do You Have An Advance Directive? Yes Information not available 10/11/2023 What Is Your Level Of Alcohol Consumption? Occasional [id number] Information not available 11/01/2022 Are You Blind Or Do You Have Difficulty Seeing? No Information not available 10/11/2023 Is Blood Transfusion Acceptable In An Emergency? Yes [email or web address] Information not available 03/11/2024 What Is Your Level Of Caffeine Consumption? Occasional [id number].[id number] [id number] Information not available 11/01/2022 How Much Tobacco Do You Chew? None MIGRATION.0301 [id number] Information not available 11/01/2022 What Is Your Code Status? DNR [email or web address] Information not available 03/11/2024 In The 14 Days Before Symptom Onset, Have You Had Close Contact With A Laboratory-conf irmed COVID-19 While That Case Was Ill? No MIGRATION.[id number] [id number] Information not available 11/01/2022 In The 14 Days Before Symptom Onset, Have You Had Close Contact With A Person Who Is Under Investigation For COVID-19 While That Person Was Ill? No MIGRATION.0301 [id number] Information not available 11/01/2022 Are You Currently Employed? No Information not available 10/11/2023 Are You Deaf Or Do You Have Serious Difficulty Hearing? No Information not available 10/11/2023 What Type Of Diet Are You Following? SPECIFIC Due To Scarring MIGRATION.0301 [id number] Information not available 11/01/2022 Which Illicit Or Recreational Drugs Have You Used? None [id number].0301 [id number] Information not available 11/01/2022 Do You Or Have You Ever Used E-cigarettes Or Vape? Never Used Electronic Cigarettes MIGRATION.0301 [id number] Information not available 11/01/2022 What Is The Highest Grade Or Level Of School You Have Completed Or The Highest Degree You Have Received? [id number] MIGRATION.0301 [id number] Information not available 11/01/2022 How Many Days Of Moderate To Strenuous Exercise, Like A Brisk Walk, Did You Do In The Last 7 Days? 0 Information not available 03/11/2024 Have There Been Any Changes To Your Family Or Social Situation? No MIGRATION.0301 [id number] Information not available 11/01/2022 What Is The Fluoride Status Of Your Home? Unknown MIGRATION.0301 [id number] Information not available 11/01/2022 Are There Any Guns Present In Your Home? No MIGRATION.0301 [id number] Information not available 11/01/2022 Do You Use Insect Repellent Routinely? No MIGRATION.0301 [id number] Information not available 11/01/2022 Where Do You Live? SingleLevelHouse MIGRATION.0301 [id number] Information not available 11/01/2022 Advance Directive- Providers Has Reviewed Directive And Consents To Follow Them (insert Provider Name With Any Objectives In Notes Field) Yes [email or web address] Information not available 03/11/2024 Presence Of Domestic Violence No [email or web address] Information not available 03/11/2024 Guns Present In The Home? No [email or web address] Information not available 03/11/2024 Are You Able To Care For Yourself? Yes [email or web address] Information not available 03/11/2024 Are You Blind Or Do Yo Have Difficulty Seeing? No Information not available 03/11/2024 Are You Deaf Or Do You Have Serious Difficulty Hearing? No [email or web address] Information not available 03/11/2024 General Stress Level? Low Information not available 03/11/2024 Live Alone Of With Others? 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 Yes Information not available 10/11/2023 What Was The Date Of Your Most Recent Tobacco Screening? 06/10/2024 [email or web address] Information not available 06/10/2024 How Many Children Do You Have? 2 [email or web address] Information not available 03/11/2024 Have You Ever Been Counseled For Unhealthy Alcohol Use? No [email or web address] Information not available 03/11/2024 Do You Have Any Pets? No MIGRATION.0301 [id number] Information not available 11/01/2022 What Is Your Relationship Status? MIGRATION.0301 [id number] Information not available 11/01/2022 Do You Use Your Seat Belt Or Car Seat Routinely? Yes Information not available 03/11/2024 Do You Have Smoke And Carbon Monoxide Detectors In Your Home? No MIGRATION.0301 [id number] Information not available 11/01/2022 Are You Passively Exposed To Smoke? No MIGRATION.0301 [id number] Information not available 11/01/2022 Do You Or Have You Ever Used Smokeless Tobacco? Never Used Smokeless Tobacco MIGRATION.0301 [id number] Information not available 11/01/2022 Are There Any Smokers In Your House? No MIGRATION.0301 [id number] Information not available 11/01/2022 What Types Of Sporting Activities Do You Participate In? None MIGRATION.0301 [id number] Information not available 11/01/2022 Do You Feel Stressed (tense, Restless, Nervous, Or Anxious, Or Unable To Sleep At Night)? [id number] Information not available 03/11/2024 Do You Use Any Illicit Or Recreational Drugs? No MIGRATION.0301 [id number] Information not available 11/01/2022 Do You Use Sunscreen Routinely? Yes MIGRATION.0301 [id number] Information not available 11/01/2022 Has Tobacco Cessation Counseling Been Provided? No N/a Information not available 10/11/2023 Have You Recently Traveled Abroad? No MIGRATION.0301 [id number] Information not available 11/01/2022 Do You Have Any Dietary Restrictions? No MIGRATION.0301 [id number] Information not available 11/01/2022 Do You Or Have You Ever Used Any Other Forms Of Tobacco Or Nicotine? No Information not available 10/11/2023 How Many Days In The Past Year Have You Consumed 4 Or More Drinks? -1 [email or web address] Information not available 03/11/2024 Sex: Unknown Functional Status Question Answer Note LastModified by Organizat ion Details LastModified Time Do you have difficulty walking or climbing stairs? No Information not available 10/11/2023 Do you have transportation difficulties? No Information not available 10/11/2023 Are you able to walk? [email or web address] Information not available 10/11/2023 Do you have difficulty doing errands alone? No Information not available 10/11/2023 Are you able to care for yourself? Yes Information not available 10/11/2023 Do you have difficulty dressing or bathing? No Information not available 10/11/2023 What is your exercise level? None [email or web address] Information not available 03/11/2024 Mental Status Question Answer Note LastModified by Organization D etails LastModified Time Do you have difficulty concentrating, remembering or making decisions? No [email or web address] Information no t available 10/11/2023 Family History Relationship Description Onset Age of this Age Resolved Age Notes LastModified by Organization Details LastModified Time Father Hypertensive disorder [id number] Not available 11/01/2022 04:44:22 Mother Rheumatic fever [id number].616 [id number] Not available 11/01/2022 04:44:22 Unspecified Relation Family history of neoplasm of skin Not available 2023 15:13:12 Medical History Condition Response SKIN PROBLEMS Y CANCER: SPECIFY Y ARTHRITIS Y THYROID DISEASE Y ALLERGIES/HAYFEVER Y HAVE YOU BEEN HOSPITALIZED OR SEEN IN [facility] IN THE PAST YEAR ? N Gynecological History Statement/Question Response How many live births 2 Date of Last Pap Current Control Method Hysterectom y Date of Last Colonoscopy Date of Last Mammogram Date of LMP Obstetrics History GPAL:G 4 P 2 0 2 2 Type Value Multiple Births 0 Full Term 2 Induced 0 Spontaneous 2 Premature 0 Living 2 Ectopics 0 Total 4 Immunizations Vaccine Type Date Status Note Provider Julio César dixon and Address Organization Details Recorded Time Influenza, split virus, trivalent, preservative 3 completed DAAM Myles, [facility] 03/05/2024 13:48:49 COVID-19, mRNA, LNP-S, PF, fernanda-sucrose, 30 mcg/0.3 mL 4 completed Esperanza Mcelroy RMA null, [facility] 06/23/2024 12:39:33 RSV, recombinant, protein subunit RSVpreF, adjuvant reconstituted, 0.5 mL, PF 4 completed Esperanza Mcelroy RMA null, [facility] 09/01/2024 15:30:34 Tdap 4 completed Esperanza Mcelroy RMA null, [facility] 09/01/2024 16:56:27 COVID-19, mRNA, LNP-S, PF, 100 mcg/0.5mL dose or 50 mcg/0.25mL dose 1 completed ADAM Myles, [facility] 03/05/2024 13:48:49 COVID-19, mRNA, LNP-S, PF, 100 mcg/0.5mL dose or 50 mcg/0.25mL dose 1 completed Thompson Quiñones LPN null, [facility] 03/05/2024 13:48:49 COVID-19, mRNA, LNP-S, PF, 100 mcg/0.5mL dose or 50 mcg/0.25mL dose 1 completed Thompson Quiñones LPN null, [facility] 03/05/2024 13:48:49 Influenza, split virus, quadrivalent, preservative 0 completed Not Available [facility] 07/19/2023 06:31:28 Influenza, split virus, quadrivalent, preservative 9 completed Not Available [facility] [facility] 07/19/2023 06:31:28 Influenza, split virus, quadrivalent, preservative 8 completed Not Available [facility] 07/19/[facility]23 06:31:28 Influenza, split virus, quadrivalent, preservative 7 completed Not Available [facility] 07/19/2023 06:31:28 Tdap 3 completed Not Available [facility] 07/19/2023 06:31:28 Pneumococcal conjugate PCV 13 5 completed Not Available [facility] 07/19/2023 06:31:28 Influenza, high-dose, quadrivalent, PF 2 completed Not Available [facility] 07/19/2023 06:31:28 Influenza, high-dose, quadrivalent, PF 1 completed Not Available [facility] 07/19/2023 06:31:28 Influenza, high-dose, quadrivalent, PF 0 completed Not Available [facility] 07/19/2023 06:31:28 Influenza, high-dose, trivalent, PF 9 completed Not Available [facility] 07/19/2023 06:31:28 Influenza, high-dose, trivalent, PF 8 completed Not Available [facility] 07/19/2023 06:31:28 Influenza, high-dose, trivalent, PF 7 completed Not Available [facility] 07/19/2023 06:31:28 Influenza, high-dose, trivalent, PF 6 completed Not Available [facility] 07/19/2023 06:31:28 Tdap 6 completed Not Available [facility] 07/19/2023 06:31:28 Influenza, high-dose, trivalent, PF 4 completed Not Available [facility] 07/19/2023 06:31:28 Influenza, high-dose, quadrivalent, PF 3 completed REGGIE Frias [address], [place], [address], [facility] 07/12/2023 17:44:55 Influenza, high-dose, trivalent, PF 4 completed Melina Sosa MD [address], [place], [address], [place] [facility] 06/27/2024 22:16:45 Past Encounters Encounter ID Performer Location Encounter Start Date Encounter Closed Date Diagnosis/Indication Diagnosis SNOMED-CT Code Diagnosis ICD10 Code Diagnosis Note [id number] [facility] [facility] [place] [facility] [place] [address] 02/07/2021 00:00:00 02/07/2021 10:26:41 [id number] [facility] [place] [facility] [place] [address] 02/09/2021 00:00:00 02/09/2021 10:08:32 [id number] [facility] [facility] [address] [place] [address] [place] [address] 02/16/2021 00:00:00 02/16/2021 10:05:57 [id number] [facility] [facility] [place] [address] 02/23/2021 00:00:00 02/24/2021 16:17:08 [id number] [facility] [facility] [address] [place] [address] [place] [address] 03/02/2021 00:00:00 03/02/2021 09:31:42 [id number] [facility] [facility] [place] [address] 03/30/2021 00:00:00 03/30/2021 10:41:20 [id number] [facility] [facility] [address] [place] [address] [place] [address] 04/28/2021 00:00:00 04/28/2021 09:34:05 [id number] [facility] [place] [facility] [place] [address] 05/10/2021 00:00:00 05/10/2021 16:13:47 [id number] [facility] [place] [address] , [place] [address] 05/30/2021 00:00:00 05/30/2021 09:51:29 [id number] [facility] [place] [address] , [place] [address] 06/29/2021 00:00:00 06/29/2021 11:53:15 [id number] [facility] [place] [address] , [place] [address] 08/01/2021 00:00:00 08/01/2021 11:08:34 [id number] [facility] [place] [address] , [place] [address] 08/09/2021 00:00:00 08/09/2021 10:26:34 [id number] [facility] [place] [address] , [place] [address] 08/31/2021 00:00:00 08/31/2021 12:17:44 [id number] [facility] [place] [address] , [place] [address] 09/29/2021 00:00:00 09/29/2021 11:51:44 [id number] [facility] [place] [address] , [place] [address] 10/31/2021 00:00:00 10/31/2021 11:07:49 [id number] [facility] [place] [address] , [place] [address] 11/28/2021 00:00:00 11/28/2021 12:32:14 [id number] [facility] [place] [address] [place] [address] 12/28/2021 00:00:00 12/28/2021 10:38:07 [id number] [facility] [place] [address] , [place] [address] 01/25/2022 00:00:00 01/25/2022 10:25:23 [id number] [facility] [place] [address] , [place] [address] 02/13/2022 00:00:00 02/13/2022 11:10:38 [id number] [facility] [place] [address] , [place] [address] 02/22/2022 00:00:00 02/22/2022 10:07:19 [id number] [facility] [place] [address] , [place] [address] 03/22/2022 00:00:00 03/22/2022 10:10:05 [id number] [facility] [place] [address] [place] [address] 04/19/2022 00:00:00 04/19/2022 11:15:12 [id number] [facility] [place] [address] [place] [address] 05/17/2022 00:00:00 05/29/2022 09:27:05 [id number] [facility] [place] [address] [place] [address] 06/09/2022 00:00:00 06/09/2022 17:25:46 [id number] [facility] [place] [address] [place] [address] 06/14/2022 00:00:00 06/14/2022 10:07:13 [id number] [facility] [place] [address] [place] [address] 07/12/2022 00:00:00 07/12/2022 10:24:06 [id number] [facility] Internal Med [facility] [address] [facility], [address] [address] 07/18/2022 00:00:00 07/18/2022 15:32:02 [id number] REGGIE Frias [facility] Internal Med [facility] [facility] [address] [address] 01/02/2023 14:16:53 01/02/2023 14:57:55 Hyperlipidemia 01938123 E78.5 no meds, working on lifestyle measures Hypothyroidism 13806770 E03.9 On SynthroidU pdate labs Vitamin D deficiency 347 03918 E55.9 Check labsCould not tolerate weekly supplement May need to try OTC daily Chronic ob structive pulmonary disease 56160990 J44.9 Asymptomat ic off of medsCall office if any issues Cobalamin deficiency 190 256983 E53.8 On monthly B12 shots Lymphedema of lower extremity 643475020 I89.0 wears compressio n stockings Rosacea 134318819 L71.9 follows silvano Rodriguez in [facility] topical metronidaz ole from them [id number] REGGIE Frias [facility] Internal [facility] [address] [facility] [address] [address] 03/26/2023 11:19:00 03/26/2023 11:50:44 Hyperlipidemia 90294879 E78.5 no meds, working on lifestyle measures Hypothyroidism 89020941 E03.9 On SynthroidU pdate labs Vitamin D deficiency 347 65888 E55.9 Could not tolerate weekly supplement May need to try OTC daily Chronic ob structive pulmonary disease 03470795 J44.9 Asymptomat ic off of medsCall office if any issues Cobalamin deficiency 190 685496 E53.8 On monthly B12 shots Lymphedema of lower extremity 793813499 I89.0 wears compressio n stockings Rosacea 330018477 L71.9 follows derm- Mariellelesia Rodriguez in [facility] topical metronidaz ole from them Urinary symptoms 6277509 08 R39.9 check UA/culture Vaginitis 03347889 N76.0 start fluconazol ecall office if no improvemen t after meds Fracture o f neck of femur 4996169 S72.001D follows [facility]- Dr. Pettit ext appt in 2 weeksis d/c Eliquis next weeklast PT is tomorrow [id number] Natalee Loyd, JOSIAH-Christofer [facility] Internal Med [facility] [address]43 [facility], [facility] [address] [place] [address] 07/17/2023 10:10:15 07/17/2023 10:50:36 Hyperlipidemia 46426911 E78.5 no meds, working on lifestyle measures Hypothyroidism 01978970 E03.9 On SynthroidU pdate labs Vitamin D deficiency 347 97361 E55.9 Could not tolerate weekly supplement Chronic ob structive pulmonary disease 87451180 J44.9 Asymptomat ic off of medsCall office if any issues Cobalamin deficiency 190 021994 E53.8 On monthly B12 shots Lymphedema of lower extremity 652082446 I89.0 wears compressio n stockings Rosacea 802564102 L71.9 follows silvano Rodriguez in [facility] topical metronidaz ole from them Fracture o f neck of femur 7502311 S72.001D [facility]. Pettit ext appt at the end of the monthis now done with PT [id number] Melina graf MD [facility] Internal Med [facility] [address] [facility], [facility] [address] [place] [address] 10/11/2023 15:06:11 10/11/2023 15:38:56 Screening - NAD 385442213 Z13.9 C-scope/Ma mmogram/PA P: Not doing does wellDEXA: Has declined this Get yearly flu shot, get tdap, get shingrix vaccineGet COVID 19 vaccine and its boostersGe t RSV vaccine RTC in 3 months, do labs, ER if worse, she did verbalize her understand ing of the above Hyperlipidemia 74958051 E78.5 Get labs Vitamin D deficiency 347 01647 E55.9 Chronic ob structive pulmonary disease 60817524 J44.9 Does well, no referrals wanted by her Serum valarie min B12 below reference range 391547464 R79.89 Fracture o f neck of femur 6807099 S72.001A Dr Rosita Pacheco well now Rosacea 354715170 L71.9 Metronidaz ole topicalDr Marielle Rodriguez dermatolog y Hypothyroidism 30812260 E03.9 On synthroid 50mcgs dailyGet labsRenewe d 10/11/2023 [id number] Melina graf MD [facility] [address] [facility], [address] [place] [address] 03/11/2024 13:58:27 03/11/2024 14:55:43 Adult health examination 166631091 Z00.00 Screening for disorder 605609742 Z13.9 Screening - NAD 34834952 3 Z13.9 C-scope/Ma mmogram/PA P: Not doing does wellDEXA: Has declined thisNo complaints at this time Get yearly flu shot, get tdap, get shingrix vaccineGet COVID 19 vaccine and its boostersGe t RSV vaccine RTC in 3 months, do labs, ER if worse, she did verbalize her understand ing of the above Hyperlipidemia 79168988 E78.5 Get labs Vitamin D deficiency 347 78222 E55.9 Can d/c the vit dSees Dr Rodrigue BETH Chronic ob structive pulmonary disease 30758046 J44.9 Does well, no referrals wanted by her Serum valarie min B12 below reference range 759613252 R79.89 Fracture o f neck of femur 0935337 S72.001A Dr Rosita Pacheco well now Rosacea 610015774 L71.9 Metronidaz ole topicalDr Marielle Michael dermatolog y Hypothyroidism 63632299 E03.9 On synthroid 50mcgs dailyGet labsRenewe d 10/11/2023 Hypoproteinemia 6815936 E88.09 More protein in diet Chronic ki dney disease 066546551 N18.[address] Rodrigue BETH Anemia 401118001 D64.9 Dr Munoz/Kar ann Tomac: 02/29/2024 : F/u in 4 monthsOn iron po Acute urin marva tract infection 683296099 N39.0 UA 03/11/2024 : Negative Has noted some burning with urineStart on levaquin Edema of l ower extremity 617850526 R60.0 Will stop the vit d as she does feel that this occurs when she takes the weekly high doseAlso start on levaquin as she does have multiple antibiotic allergies [id number] Melina graf MD [facility] Internal Med [place] [address] 06/10/2024 11:06:07 06/10/2024 11:49:25 Screening - NAD 153895679 Z13.9 C-scope/Ma mmogram/PA P: Not doing does wellDEXA: Has declined thisNo complaints at this time Get yearly flu shot, get tdap, get shingrix vaccineGet COVID 19 vaccine and its boostersGe t RSV vaccine RTC in 3 months, do labs, ER if worse, she did verbalize her understand ing of the above Hyperlipidemia 02135460 E78.5 Get labsMild TG elevated, more diet control, not on any meds Vitamin D deficiency 347 93676 E55.9 Can d/c the vit dSees Dr Rodrigue BETH Chronic ob structive pulmonary disease 02896111 J44.9 Does well, no referrals wanted by her Serum valarie min B12 below reference range 443154588 R79.89 Fracture o f neck of femur 9881528 S72.001A Dr Becker SLUDoes well now Rosacea 393876680 L71.9 Metronidaz ole topicalDr Marielle Rodriguez dermatolog y Hypothyroidism 88056091 E03.9 On synthroid 50mcgs dailyGet labsRenewe d 10/11/2023 Hypoproteinemia 6479164 E88.09 More protein in diet Chronic ki dney disease 314229454 N18.[address] Rodrigue BETH Anemia 494134527 D64.9 Dr Munoz/Kar ann Tomac: 02/29/2024 : F/u in 4 monthsOn iron po Administra tion of influenza vaccine 15649042 Z23 [id number] Melina graf MD [facility] Internal Med [address] [facility], [facility] [address] [place] [address] 09/09/2024 11:17:10 09/09/2024 12:20:00 Screening - NAD 680958703 Z13.9 C-scope/Ma mmogram/PA P: Not doing does wellDEXA: Has declined thisNo complaints at this time Get yearly flu shot, get tdap, get shingrix vaccineGet COVID 19 vaccine and its boostersGe t RSV vaccine RTC in 3 months, do labs, ER if worse, she and her daughter did verbalize her understand ing of the above Hyperlipidemia 27415177 E78.5 Get labsDiet control, not on any meds Vitamin D deficiency 347 96782 E55.9 Can d/c the vit dSees Dr Rodrigue BETH Chronic ob structive pulmonary disease 03033687 J44.9 Does well, no referrals wanted by her Serum valarie min B12 below reference range 503031064 R79.89 Fracture o f neck of femur 3920219 S72.001A Dr Rosita SLAUGHTERoes well now Rosacea 008940401 L71.9 Metronidaz ole topicalDr Mariellelesia Rodriguez dermatolog y Hypothyroidism 88350573 E03.9 On synthroid 50mcgs dailyGet labsRenewe d 10/11/2023 Hypoproteinemia 6024991 E88.09 More protein in diet Chronic ki dney disease 908715544 N18.9 On vit dOn calcitriol Sees Dr Rodrigue BETH Anemia 656408030 D64.9 Dr Munoz/Kar ann Tomac: 02/29/2024 : F/u in 4 monthsOn iron po Pre-surger y evaluation 220534504 Z01.818 Surgery: L cataractSu rgeon: Dr Aguerote : 09/25/2024 Anesthesia : Local, IV sedationLa bs: Hilda nce: Cleared for surgery pending EKG Essential hypertension 32131904 I10 On losartan 25m dailySees Dr Rodrigue BETH Health Concerns Section Related Observation LastModified by Organization Detai ls LastModified Time None Recorded Concern Status LastModified by Organization Details LastModified Time None Recorded Advance Directives Directive Y: Payers Encounter Date Sequence Insurance Name Policy Number Policy Meeks Covered Member ID Meeks Member ID Guarantor Name 07/17/2023 1 [employer] (MEDICARE REPLACEMENT PPO) [id number] 1 Ally Pearson [id number] Ally Dengpell 10/11/2023 1 [employer] (MEDICARE REPLACEMENT PPO) [id number] 1 Ally Pearson [id number] Ally Dengpell 03/11/2024 1 [employer] (MEDICARE REPLACEMENT PPO) [id number] 1 Ally Pearson [id number] Ally Dengpell 06/10/2024 1 [employer] (MEDICARE REPLACEMENT PPO) [id number] 1 Ally Pearson [id number] Ally Dengpell 09/09/2024 1 [employer] (MEDICARE REPLACEMENT PPO) [id number] 1 Ally Pearson [id number] Ally Pearson Notes Date Note Type Note Provider Name and Address Organization Details Recorded Time 07/17/2023 text/html lAly presents today for follow-up. She really got her flu shot earlier in the month. She reports she is now completely done with physical therapy for the hip fracture. She goes back to see her surgeon 1 more time at the end of the month, then she anticipates being released from them. She is back to all of her baseline functioning. She is not having any pain or difficulty with mobility. She is not having any issues with the COPD. She is not on any medications for that. She continues to follow Dermatology for the rosacea. She feels well on her current dose of Synthroid. Has not been having any issues with it. She is due for labs. She is no longer doing her mammogram, colonoscopy, DEXA, or well-woman due to age. Natalee Loyd, JOSIAH-Christofer [address], [place], [address], [employer] 07/17/2023 11:49:56 10/11/2023 text/html OV 10/11/2023:He re to establish care Past Hx:HypothyroidsmRo saceaLow B12 Here to discuss above and get labs, she would like to get her synthroid refilled, does well Melina Sosa MD [address], [address], [place], [address], [employer] 10/11/2023 16:01:49 03/11/2024 text/html OV 10/11/2023:He re to establish care Past Hx:HypothyroidsmRo saceaLow B12 Here to discuss above and get labs, she would like to get her synthroid refilled, does well OV 03/11/2024: Here for her f/u apt, she wonders if she has the rash on her leg d/t the vit d, she also has noted some UTI sx of burning in the urine, she denies any fevers or chills, no LBP, no blood in urineShe has done her labs with Dr Rodrigue BETH and has also now seen Dr Tammy Sosa MD [address], [address], [place], [address], [facility] [employer] [facility] 03/24/2024 18:06:17 06/10/2024 text/html OV 10/11/2023:He re to establish care Past Hx:HypothyroidsmRo juleeeaLow B12 Here to discuss above and get labs, she would like to get her synthroid refilled, does well OV 03/11/2024: Here for her f/u apt, she wonders if she has the rash on her leg d/t the vit d, she also has noted some UTI sx of burning in the urine, she denies any fevers or chills, no LBP, no blood in urineShe has done her labs with Dr Rodrigue BETH and has also now seen Dr Munoz OV 06/10/2024: Here for her f/u apt she is doing very well, she has done her labs Melina Sosa MD [address], [place], [address], [employer] [facility] [employer] 06/27/2024 22:17:43 09/09/2024 text/html OV 10/11/2023:He re to establish care Past Hx:HypothyroidsmRo saceaLow B12 Here to discuss above and get labs, she would like to get her synthroid refilled, does well OV 03/11/2024: Here for her f/u apt, she wonders if she has the rash on her leg d/t the vit d, she also has noted some UTI sx of burning in the urine, she denies any fevers or chills, no LBP, no blood in urineShe has done her labs with Dr Rodrigue BETH and has also now seen Dr Munoz OV 06/10/2024: Here for her f/u apt she is doing very well, she has done her labs OV 09/09/2024: Here for her f/u apt, she is doing well, she did do the labs and is here for surgery clearance for L eye surgery Melina Sosa MD [address] [facility], [facility] [address], [place], [address], [place] [facility] 09/09/2024 12:22:29 OBGyn Episode No OBEpisode recorded.
--- OUTSIDE RECORDS SUMMARY | 2024-10-10 11:28 | XMS_ITS ---
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) Active confirmed Congenital stenosis of esophagus (852397446) Problem Other osteoporosis without current pathological fracture (M81.8) Active confirmed Osteoporosi s (40310907) Encounters Encounter Location Date Provider Diagnosis [facility] [address] [facility] [address] [place] [address] 10/08/2024 Eric Husain Chronic kidney disease, stage 3a N18.31 ; Primary generalized (osteo)arthritis M15.0 ; Congenital stenosis and stricture of esophagus Q39.3 ; Abnormal radiologic findings on diagnostic imaging of unspecified kidney R93.429 and Other osteoporosis without current pathological fracture M81.8 ASSESSMENTS Encounter Date Diagnosis Assessment Notes Treatment Notes Treatment Clinical Notes Section Notes 10/08/2024 Chronic kidney disease, stage 3a (ICD-10 - N18.31) 10/08/2024 Primary generalized (osteo)arthritis (ICD-10 - M15.0) 10/08/2024 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) 10/08/2024 Abnormal radiologic findings on diagnostic imaging of unspecified kidney (ICD-10 - R93.429) 10/08/2024 Other osteoporosis without current pathological fracture (ICD-10 - M81.8) PLAN OF TREATMENT Next Appt Details Provider Name:Eric Husain , 12/03/2024 03:30:00 PM, [address] [facility], [address], [place], [address], Progress Notes * Susan PEARSON: 9 (84 yo F)Acc No.[id number]:10/08/2024 Progress Notes Patient: Ally PEARSON Provider: MD CURLY, BhargaviP, F.A.S.N. :1940 Age:84 Y Sex:Female Date:10/08/2024 Address:[address] [place] [address] Subjective: * Chief Complaints: * * Medical History: Objective: Assessment: * Assessment: 1. Chronic kidney disease, stage 3a - N18.31 (Primary) 2. Primary generalized (osteo)arthritis - M15.0 3. Congenital stenosis and stricture of esophagus - Q39.3 4. Abnormal radiologic findings on diagnostic imaging of unspecified kidney - R93.429 5. Other osteoporosis without current pathological fracture - M81.8 Plan: * Treatment: * Billing Information: * Visit Code: 26998 Office Visit, Est Pt., Level 4. * Procedure Codes: * INSPECTOR Sign off status: Pending * Provider: MD CURLY, BhargaviP, F.A.S.N. Date: 10/08/2024
--- OUTSIDE RECORDS SUMMARY | 2024-10-10 11:28 | XMS_ITS | Clinical Summary ---
Author Organization [facility] Address [address] [place] [address] Care Team Providers Care Oversize Load Pilot Escort Name Role Phone Gaviota Edmonds MD Primary Care Provider [phone] Source Comments [facility],non-owned Affiliates and Associated Physician Practices is amultiple site organization consisting of ambulatory clinics and hospital sitesin [place], [place], [place] and [place]. This disclosure is being madepursuant to the Care Everywhere program and may not contain all information available regarding this patient. Last updated 18.[facility]ipin Allergies Active Allergy Reactions Criticality Noted Date [...] of uterus 07/14/2013 Nausea with vomiting 07/14/2013 Family History Medical History Relation Name Comments None Known Father Status: d Heart Disease Mother Status: [place] ed Relation Name Status Comments Father Mother Social History Tobacco Use Types Packs/Day Years [...] Recorded Patient Health Questionnaire-2 Score 0 08/02/2023 [facility] [place] of Occupat ional Health - Occupational Stress [...] place to sleep or slept in a longterm (including now)? 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 Height 162.6 cm (5' 4 ) 05/03/2023 9:04 AM CDT Body Mass Index 23.17 05/03/2023 9:04 AM CDT Plan of Treatment Health Maintenance Due Date Last Done Comments BONE DENSITY TESTING 1940 DTAP/TDAP/TD VACCINES (1 - Tdap) 1958 PNEUMOCOCCAL VACCINE 50+ (1 of 1 - PCV) 1989 ZOSTER VACCINE (1 of 2) 1989 Respiratory Syncytial Virus (RSV) Vaccine Pt: or over 60 yrs (1 - 1-dose 75+ series) 2014 COVID-19 VACCINE ( - 2023- season) 2024 08/03/2021, 11/24/2020, 10/27/2020 INFLUENZA VACCINE (#1) 2024 2, 06/29/2021, 08/03/2020, Additional history exists DEPRESSION SCREENING 09/03/2024 08/02/2023 MEDICARE AWV CALENDAR YEAR 2024 HEPATITIS B VACCINE Aged Out No longe r eligible based on patient's age to complete this topic HIB VACCINE Aged Out No longer eligi ble based on patient's age to complete this topic HPV VACCINE Aged Out No longer eligi ble based on patient's age to complete this topic MENINGOCOCCAL (Group B) VACCINE Aged Out No longer eligible based on patient's age to complete this topic MENINGOCOCCAL VACCINE Aged Out No olivia macey eligible based on patient's age to complete this topic Medical Devices Implanted Type Area Analysis Lead Device Identifier Shelf Expiration Date Model / Serial / Lot Hip Stem- Standard Offset Implanted:Qty: 1 on 02/13/2023 by Tommy Becekr MD at [facility] 11/12/2027 [id number] / / [id number] [employer] [place] Head Bipolar Component Implanted:Qty: 1 on 02/13/2023 by Tommy Becker MD at [facility] [id number] / / [id number] Head Fem +0mm Ofst Tpr 28mm Hip Blx D Implanted:Qty: 1 on 02/13/2023 by Tommy Becker MD at [facility] [employer] [id number] / / [id number] Advance Directives * Full Code (Latest Code Status on File) Date Activated Date Inactivated Comments 02/12/2023 3:43 PM 02/15/2023 7:44 PM Care Teams Oversize Load Pilot Escort Relationship Specialty Start Date End Date Gaviota Edmonds MD [address] [place], [place] [phone] PCP - General 07/14/13
--- OUTSIDE RECORDS SUMMARY | 2024-10-10 11:28 | XMS_ITS | Clinical Summary ---
Author Organization [facility] Address [address] [place] [address] Care Team Providers Care Crusher Tender Name Role Phone Melina Sosa MD Primary Care Provider Allergies Active Allergy Reactions Criticality Noted Date Comments Cephalexin Rash Medium 07/14/2013 Erythromycin Rash Medium 07/14/2013 Oxytetracycline Rash Medium 07/14/2013 Penicillins Rash Medium 07/14/2013 Medications levothyroxine 50 mcg tablet Take 50 mcg by mouth daily before breakfast. Active ergocalciferol (VITAMIN D2) 50,000 unit capsule Take 50,000 Units by mouth. Active ferrous sulfate 325 mg (65 mg iron) tablet Take 325 mg by mouth daily. Active potassium chloride (KLOR-CON) 20 mEq Extended Release tablet Take 20 mEq by mouth daily. Active ascorbic acid, vitamin C, (VITAMIN C) 500 mg tablet Take 500 mg by mouth daily. Active vitamin A-vitamin C-vitamin E (OCUVITE) Tablet Take 1 Tablet by mouth daily. Active omega-3 fatty acids-fish oil 300-1,000 mg Capsule Take by mouth daily. Active triamcinolone acetonide (KENALOG) 0.1 % Ointment by See Admin Instructions route see administration instructions. 4 Active Active Problems No known active problems Encounters Date Type Department Care Team Description 09/25/2024 External Device Data ST[facility] ABSTRACTION Provider, Abstract 09/24/2024 External Device Data ST[facility] ABSTRACTION Provider, Abstract 09/23/2024 External Device Data ST[facility] ABSTRACTION Provider, Abstract from Last 3 Months Family History Relation Name Status Comments Brother Alive Daughter Alive Father Mother Sister 1 Alive Sister 2 Alive Son Alive Social History Tobacco Use Types Packs/Day Years Used Date Smoking Tobacco: Never Smokeless Tobacco: Never Tobacco Cessation:Counseling Given: Not Answered Alcohol Use Standard Drinks/Week Comments Not Currently 0 (1 standard drink = 0.6 oz pur e alcohol) Socially Comments Unknown Sex and Gender Information Value Date Recorded Sex Assigned at Not on file Legal Sex Female 10:19 AM CDT Gender Identity Not on file Sexual Orientation Not on file Last Filed Vital Signs Vital Sign Reading Time Taken Comments Blood Pressure 120/66 07/02/2024 1:14 PM CDT Pulse 77 07/02/2024 1:14 PM CDT Temperature 36.8 C (98.2 F) 07/02/2024 1:14 PM CDT Respiratory Rate 17 07/02/2024 1:14 PM CDT Oxygen Saturation 97% 07/02/2024 1:14 PM CDT Inhaled Oxygen Concentration - - Weight 60.8 kg (134 lb) 07/02/2024 1:14 PM CDT Height 165.1 cm (5' 5 ) 11/21/2023 11:29 AM CDT Body Mass Index 22.3 11/21/2023 11:29 AM CDT Plan of Treatment Upcoming Encounters Date Type Department Care Team (Late st Contact Info) Description 10/15/2024 2:45 PM BRAKE REPAIRER BUS Office Visit [facility] Oncology and Hematology - [place] [address] [place] [address] [facility] [address] [place] [address] Cesar Munoz MD [address] [facility] [address] [place] [address] Health Maintenance Due Date Last Done Comments ZOSTER VACCINE (1 of 2) 1989 OSTEOPOROSIS SCREENING 2004 PNEUMOCOCCAL VACCINE 65+ YEA RS (2 of 2 - PPSV23) 09/11/2005 07/17/2005 RSV VACCINE (60+ or ) (1 - 1-dose 75+ series) 2014 INFLUENZA VACCINE (#1) 2024 3, 06/14/2022, 06/29/2021, Additional history exists Medicare Ad[place]age ([place]) Preventative Visit/Annual Wellness Visit 09/03/2024 DTAP/TDAP/TD VACCINES (3 - T d or Tdap) 01/02/2026 01/03/2016, 08/13/2013 Insurance [employer] PPO MCR Care Teams Crusher Tender Relationship Specialty Start Date End Date Melina Sosa MD PCP - General Internal Medicine 11/20/23
[2024-10-10 12:38] LABS: Iron 85 ug/dL (37-170)
[2024-10-10 12:47] LABS: Percent Iron Saturation 28 % (20-50)
== END 2024-10-10 10:46 | disposition home or self-care (01) ==
LOC: ANHLAB 10:47
PROVIDERS: PCP Internal Medicine; Visit Provider Internal Medicine Hematology & Oncology
DX: D64.9 Anemia, unspecified (principal)
CPT/HCPCS: 36415; 80048; 82607; 82728; 82746; 83540; 83550; 85027

== ENCOUNTER 2025-01-09 11:27 | Outpatient (CLI) | payer MEDICARE, SELFPAY ==
--- OUTSIDE RECORDS SUMMARY | 2025-01-09 11:29 | XMS_ITS ---
Author Organization [facility] Address [address] [facility] [address] [place] [address] Care Team Providers Care Processing Analyst Name Role Phone Rodrigue Eric Unavailable [phone] MEDICATIONS Medication SIG (Take, Route, Frequency, Duration) Notes Start Date End Date Status Ergocalciferol 1.25 MG (58992 UT) 1 capsule Orally twice a week for 90 day(s) 10/08/2024 07/11/2025 Active Encounters Encounter Location Date Provider Diagnosis [place] [facility] [address] [facility] [address] [place] [address] 10/14/2024 Eric Husain PLAN OF TREATMENT Medication Medication Name Sig Start Date Stop Date Notes Ergocalciferol 1.25 MG (5000 0 UT) 1 capsule Orally twice a week for 90 day(s) 10/08/2024 07/11/2025 Next Appt Details Provider Name:Eric Husain , 04/08/2025 02:15:00 PM, [address] [facility], [place], [address], Progress Notes * LILIAlly KIRANDOB: (84 yo F)Acc No.[id number]:10/14/2024 Patient: Ally SHELTON :1940 Age:84 Y Sex:Female Address:[address] [place] [address] * Refills Refill Ergocalciferol Capsule, 1.25 MG (29817 UT), Orally, 24, 1 capsule, twice a week, 90 day(s), Refills=2 * * Date:
--- OUTSIDE RECORDS SUMMARY | 2025-01-09 11:30 | XMS_ITS | Data Portability ---
Author Organization [place] [facility] (formerly known as [facility]), Main Office Address [address] [place] [address] Care Team Providers Care Word Processor Operator Name Role Phone ERIC ANGULO Personnel And Payroll Technician MELINA SOSA Primary Care Provider OPAL LOPEZ Hematology/Oncology Assessment Encounter Date Assessment Date Assessment LastModified by Organization Details LastModified Time 03/11/2024 03/11/2024 10/31/2023: VIT D 25.5 H/H 10.8/33.8 11/16/2023: BUN 20, GFR 53, TP 5.4L, Glob 2.2L 02/21/2024: Dr Rodrigue Wright 136, GFR 57 A1C 5.3 H/H 11.1/33.4 VIT D 30.2 45 minutes spent with the patient, obtained and reviewed her labs from Dr Rodrigue BETH and did a UA Not available 03/11/2024 14:57:47 06/10/2024 06/10/2024 10/31/2023: [...] 10.9/33.8 TP 5.7L Not available 09/09/2024 11:52:20 12/09/2024 12/09/2024 10/31/2023: VIT D 25.5 H/H 10.8/33.8 11/16/2023: BUN 20, GFR 53, TP 5.4L, Glob 2.2L 02/21/2024: Dr Rodrigue Wright 136, GFR 57 A1C 5.3 H/H 11.1/33.4 VIT D 30.2 06/03/2024: TG 154 H/H 11.2/35.2 09/05/2024: H/H 10.9/33.8 TP 5.7L 10/10/2024: Dr Munoz BUN/Cr./GFR 20/1.02/52 H/H 11.1/35.1 11/28/2024: Dr Angulo IJ TP 5.5L Not available 12/09/2024 12:22:53 Plan of Treatment Reminders Order Date Submit Date Provider Last Modified By Organization Details Last Modified Time Details Appointments Any 15 2024 10:00A Horace mckay MD Not available Not available Not available Lab vitamin D, 25-hydrox y, total, serum [email or web address] (Lab), [address] [place], [address], 12/09/2024 12:27:06 lipid panel, serum 2024 025 [email or web address] [facility] (Lab), [address] [place], [address], 12/09/2024 12:27:06 CBC w/ auto diff [address] (Lab), [address] [place], [address], 12/09/2024 12:27:06 CMP, serum or plasma [address] (Lab), [address] [place], [address], 12/09/2024 12:27:07 TSH, serum or plasma [address] (Lab), [address] [place], [address], 12/09/2024 12:27:07 vitamin B12 + folate, serum or blood [address] (Lab), [address] [place], [address], 12/09/2024 12:27:07 vitamin D, 25-hydrox y, total, serum [address] (Lab), [address] [place], [address], 09/10/2024 09:41:15 lipid panel, serum [address] (Lab), [address] [place], [address], 09/10/2024 09:41:15 CBC w/ auto diff [address] (Lab), [address] [place], [address], 09/10/2024 09:41:15 CMP, serum or plasma [address] (Lab), [address] [place], [address], 09/10/2024 09:41:15 TSH, serum or plasma [address] (Lab), [address] [place], [address], 09/10/2024 09:41:15 vitamin B12 + folate, serum or blood [address] (Lab), [address] [place], [address], 09/10/2024 09:41:15 vitamin D, 25-hydrox y, total, serum [address] (Lab), [address] [place], [address], 12/09/2024 08:28:40 lipid panel, serum [address] (Lab), [address] [place], [address], 12/09/2024 08:28:40 CBC w/ auto diff [address] (Lab), [address] [place], [address], 12/09/2024 08:28:41 CMP, serum or plasma [address] (Lab), [address] [place], [address], 12/09/2024 08:28:41 TSH, serum or plasma [address] (Lab), [address] [place], [address], 12/09/2024 08:28:41 vitamin B12 + folate, serum or blood [address] (Lab), [address] [place], [address], 12/09/2024 08:28:41 urinalysi s, dipstick 2023 024 [email or web address] [address] [facility] [address], [place], [address], 03/25/2024 09:57:58 lipid panel, serum 2023 024 [facility] (Lab), [address] [place], [address], 06/03/2024 21:52:01 CBC w/ auto diff 2023 024 [facility] (Lab), [address] [place], [address], 06/03/2024 17:28:58 CMP, serum or plasma 2023 024 [facility] (Lab), [address] [place], [address], 06/03/2024 21:52:06 TSH, serum or plasma 2023 024 [facility] (Lab), [address] [place], [address], 06/03/2024 21:58:21 vitamin D, 25-hydrox y, total, serum [address] (Lab), [address] [place], [address], 09/11/2024 08:49:49 vitamin B12 + folate, serum or blood [address] (Lab), [address] [place], [address], 09/11/2024 08:49:49 vitamin D, 25-hydrox y, total, serum [address] (Lab), [address] [place], [address], 04/16/2024 09:40:04 lipid panel, serum 2023 024 [facility] (Lab), [address] [place], [address], 10/31/2023 13:35:41 CBC w/ auto diff 2023 024 [facility] (Lab), [address] [place], [address], 10/31/2023 12:47:51 CMP, serum or plasma 2023 024 [facility] (Lab), [address] [place], [address], 10/31/2023 13:35:51 TSH, serum or plasma 2023 024 [facility] (Lab), [address] [place], [address], 10/31/2023 14:11:45 vitamin B12 + folate, serum or blood [address] (Lab), [address] [place], [address], 04/16/2024 09:40:04 Referral nephrolog ist referral 2023 025 [email or web address] Eric Angulo MD (Nephrology, [address], [address], [place], [address], 09/09/2024 12:29:42 hematolog ist referral 2023 025 Cesar Munoz MD, [address], [place], [address], 09/09/2024 12:29:43 nephrolog ist referral 2023 024 [email or web address] Eric Angulo MD (Nephrology, [address], [address], [place], [address], 06/10/2024 12:34:23 hematolog ist referral 2023 024 [email or web address] Cesar Munoz MD, [address], [place], [address], 06/10/2024 12:34:24 nephrolog ist referral 2023 024 Eric Angulo MD (Nephrology, [address], [address], [place], [address], 09/11/2024 08:50:59 Procedures None recorded. Surgeries None recorded. Imaging None recorded. Medication Orders levofloxa jeimy 750 mg tablet [address] [id number], [address] , [place], [address], 06/10/2024 11:17:02 Synthroid 50 mcg tablet 2023 024 [id number], [address] , [place], [address], 10/11/2023 15:48:28 Patient TargetsNo targets recorded. Patient Instructions Encounter Date Encounter Id Patient Instructions Last Modified By Organization Details Last Modified Time 03/11/2024 [id number] dementia rating scale-2* [email or web address] Not available 03/11/2024 14:48:41 alcohol misuse* [email or web address] Not available 03/11/2024 14:49:00 depression screening* [email or web address] Not available 03/11/2024 14:49:21 multi-dimensiona l health assessment questionnaire* Not available 03/11/2024 14:48:25 [facility] Plan and Screening Recommendations Advance Directives - [...] Not available 03/11/2024 14:52:02 Reason for Referral Personnel And Payroll Technician 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 Referring Physician: Juan Alberto Bhagat Medicine, Encounter Date: 03/11/2024 Personnel And Payroll Technician 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 Referring Physician: Juan Alberto Bhagat Medicine, Encounter Date: 06/10/2024 Referring Physician: Juan Alberto Bhagat Medicine, Encounter Date: 06/10/2024 Personnel And Payroll Technician 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 Referring Physician: Juan Alberto Bhagat Medicine, Encounter Date: 09/09/2024 Referring Physician: Juan Alberto Bhagat Medicine, Encounter Date: 09/09/2024 Results Created Date Observation Date Name Description Value Unit Range Abnormal Flag Note LastModifiedBy Organization Detail LastModifiedTime 10/31/19 24 10/31/2023 CBC/C OMPLE TE BLD COUNT W/DIF F white blood cells 5.9 x10'3 /uL 4.2-10 .8 Not Available [facility] (Lab) [address] [place], [address], 10/31/2023 12:47:51 10/31/19 24 10/31/2023 CBC/C OMPLE TE BLD COUNT W/DIF F red blood cells 3.46 x10'6 /uL 3.80-5 .20 low Not Available [facility] (Lab) [address] [place], [address], 10/31/2023 12:47:51 10/31/19 24 10/31/2023 CBC/C OMPLE TE BLD COUNT W/DIF F hemoglobin 10.8 g/dL 12.0-1 5.6 low Not Available [facility] (Lab) [address] [place], [address], 10/31/2023 12:47:51 10/31/19 24 10/31/2023 CBC/C OMPLE TE BLD COUNT W/DIF F hematocrit 33.8 % 35.7-4 5.7 low Not Available [facility] (Lab) [address] [place], [address], 10/31/2023 12:47:51 10/31/19 24 10/31/2023 CBC/C OMPLE TE BLD COUNT W/DIF F mean red cell volume 97.7 fL 82.0-9 9.0 Not Available [facility] (Lab) [address] [place], [address], 10/31/2023 12:47:51 10/31/19 24 10/31/2023 CBC/C OMPLE TE BLD COUNT W/DIF F mean red cell hemoglobin 31.2 pg 27.0-3 3.0 Not Available [facility] (Lab) [address] [facility] [place], [address], 10/31/2023 12:47:51 10/31/19 24 10/31/2023 CBC/C OMPLE TE BLD COUNT W/DIF F mean RBC HGB concentratio n 32.0 g/dL 31.0-3 6.0 Not Available [facility] (Lab) [address] [place], [address], 10/31/2023 12:47:51 10/31/19 24 10/31/2023 CBC/C OMPLE TE BLD COUNT W/DIF F red cell distribution width 14.3 % 11.8-1 5.5 Not Available [facility] (Lab) [address] [place], [address], 10/31/2023 12:47:51 10/31/19 24 10/31/2023 CBC/C OMPLE TE BLD COUNT W/DIF F platelets 217 x10'3 /uL 150-40 0 Not Available [facility] (Lab) [address] [place], [address], 10/31/2023 12:47:51 10/31/19 24 10/31/2023 CBC/C OMPLE TE BLD COUNT W/DIF F mean platelet volume 11.0 fL 9.0-12 .4 Not Available [facility] (Lab) [address] [place], [address], 10/31/2023 12:47:51 10/31/19 24 10/31/2023 CBC/C OMPLE TE BLD COUNT W/DIF F neutrophils 54.4 % 39.0-7 2.0 Not Available [facility] (Lab) [address] [place], [address], 10/31/2023 12:47:51 10/31/19 24 10/31/2023 CBC/C OMPLE TE BLD COUNT W/DIF F lymphocytes 33.9 % 16.0-4 7.0 Not Available [facility] (Lab) [address] [place], [address], 10/31/2023 12:47:51 10/31/19 24 10/31/2023 CBC/C OMPLE TE BLD COUNT W/DIF F monocytes 7.8 % 5.0-12 .0 Not Available [facility] (Lab) [address] [place], [address], 10/31/2023 12:47:51 10/31/19 24 10/31/2023 CBC/C OMPLE TE BLD COUNT W/DIF F eosinophils 3.2 % 1.0-7. 0 Not Available [facility] (Lab) [address] [place], [address], 10/31/2023 12:47:51 10/31/19 24 10/31/2023 CBC/C OMPLE TE BLD COUNT W/DIF F basophils 0.5 % 0.0-2. 0 Not Available [facility] (Lab) [address] [place], [address], 10/31/2023 12:47:51 10/31/19 24 10/31/2023 CBC/C OMPLE TE BLD COUNT W/DIF F immature granulocytes 0.2 % 0.00-0 .50 Not Available [facility] (Lab) [address] [place], [address], 10/31/2023 12:47:51 10/31/19 24 10/31/2023 CBC/C OMPLE TE BLD COUNT W/DIF F neutrophils, absolute count 3.21 x10'3 /uL 1.5-8. 0 Not Available [facility] (Lab) [address] [place], [address], 10/31/2023 12:47:51 10/31/19 24 10/31/2023 CBC/C OMPLE TE BLD COUNT W/DIF F lymphocytes, absolute count 2.00 x10'3 /uL 1.07-3 .43 Not Available [facility] (Lab) [address] [place], [address], 10/31/2023 12:47:51 10/31/19 24 10/31/2023 CBC/C OMPLE TE BLD COUNT W/DIF F monocytes, absolute count 0.46 x10'3 /uL 0.29-0 .99 Not Available [facility] (Lab) [address] [place], [address], 10/31/2023 12:47:51 10/31/19 24 10/31/2023 CBC/C OMPLE TE BLD COUNT W/DIF F eosinophils, absolute count 0.19 x10'3 /uL 0.02-0 .53 Not Available [facility] (Lab) [address] [place], [address], 10/31/2023 12:47:51 10/31/19 24 10/31/2023 CBC/C OMPLE TE BLD COUNT W/DIF F basophils, absolute count 0.03 x10'3 /uL 0.01-0 .08 Not Available [facility] (Lab) [address] [place], [address], 10/31/2023 12:47:51 10/31/19 24 10/31/2023 CBC/C OMPLE TE BLD COUNT W/DIF F immature granulocytes ,absolute 0.01 x10'3 /uL 0.00-0 .05 Not Available [facility] (Lab) [address] [place], [address], 10/31/2023 12:47:51 10/31/19 24 10/31/2023 CBC/C OMPLE TE BLD COUNT W/DIF F nucleated red blood cells 0.0 % -0 Not Available [facility] (Lab) [address] [place], [address], 10/31/2023 12:47:51 10/31/19 24 10/31/2023 CBC/C OMPLE TE BLD COUNT W/DIF F NRBC# 0.00 x10'3 /uL Not Available [facility] (Lab) [address] [place], [address], 10/31/2023 12:47:51 10/31/19 24 10/31/2023 LIPID PANEL cholesterol 129 mg/dL 140-19 9 low NIH ESTER NSUS RECOM MENDA TION FOR CARYN STERO L: ADULT CHILD LOW RISK: <200 <170 BORDE RLINE : <200- 239 ----- HIGH RISK: >240 >200 Not Available [facility] (Lab) [address] [place], [address], 10/31/2023 13:35:40 10/31/19 24 10/31/2023 LIPID PANEL triglyceride s 117 mg/dL 0-150 NIH ESTER NSUS REPOR T RECOM MENDA TION FOR TRIGL YCERI IKMI: ADULT CHILD LOW RISK: <150 ----- BODER LINE: 150-1 99 ----- HIGH RISK: >200 ----- Not Available [facility] (Lab) [address] [place], [address], 10/31/2023 13:35:40 10/31/19 24 10/31/2023 LIPID PANEL HDL cholesterol 57 mg/dL 40- Not Available [facility] (Lab) [address] [place], [address], 10/31/2023 13:35:40 10/31/19 24 10/31/2023 LIPID PANEL [...] WILL NOT BE REPOR DAYANNA. Not Available [facility] (Lab) [address] [place], [address], 10/31/2023 13:35:40 10/31/19 24 10/31/2023 COMPR EHENS MELVIN METAB OLIC PANEL sodium 142 mmol/ L 137-14 5 Not Available [facility] (Lab) [address] [place], [address], 10/31/2023 13:35:51 10/31/19 24 10/31/2023 COMPR EHENS MELVIN METAB OLIC PANEL potassium 3.2 mmol/ L 3.5-5. 1 low Not Available [facility] (Lab) [address] [place], [address], 10/31/2023 13:35:51 10/31/19 24 10/31/2023 COMPR EHENS MELVIN METAB OLIC PANEL chloride 111 mmol/ L 98-107 high Not Available [facility] (Lab) [address] [place], [address], 10/31/2023 13:35:51 10/31/19 24 10/31/2023 COMPR EHENS MELVIN METAB OLIC PANEL carbon dioxide 25 mmol/ L 22-30 Not Available [facility] (Lab) [address] [place], [address], 10/31/2023 13:35:51 10/31/19 24 10/31/2023 COMPR EHENS MELVIN METAB OLIC PANEL anion gap 9.2 mmol/ L 14-22 low Not Available [facility] (Lab) [address] [place], [address], 10/31/2023 13:35:51 10/31/19 24 10/31/2023 COMPR EHENS MELVIN METAB OLIC PANEL glucose 62 mg/dL 70-99 low Not Available [facility] (Lab) [address] [place], [address], 10/31/2023 13:35:51 10/31/19 24 10/31/2023 COMPR EHENS MELVIN METAB OLIC PANEL BUN 13 mg/dL 8-19 Not Available [facility] (Lab) [address] [place], [address], 10/31/2023 13:35:51 10/31/19 24 10/31/2023 COMPR EHENS MELVIN METAB OLIC PANEL creatinine 0.90 mg/dL 0.66-1 .25 Not Available [facility] (Lab) [address] [place], [address], 10/31/2023 13:35:51 10/31/19 24 10/31/2023 COMPR EHENS MELVIN METAB OLIC PANEL GFR 60 Refer ence Range : [place] ge GFR Healt hy Adult : >60 [...] or ethni c subgr oups, such as Mckenzie nics. Outsi de the valid ated vane [...] serum creat inine relat ed to nutri ysey l statu s or medic ation usage . For perso ns <18 years of age, a pedia tric GFR calcu lator is avail able on the [facility] websi te: https ://vickie [email or web address] coppola.o rg/pr ofess ional s/kdo qi/gf r_cal culat or Not Available [facility] (Lab) [address] [facility] [place], [address], 10/31/2023 13:35:51 10/31/19 24 10/31/2023 COMPR EHENS MELVIN METAB OLIC PANEL alkaline phosphatase 78 U/L 38-126 Not Available [facility] (Lab) [address] [place], [address], 10/31/2023 13:35:51 10/31/19 24 10/31/2023 COMPR EHENS MELVIN METAB OLIC PANEL alanine aminotransfe rase 14 U/L 0-35 Not Available [facility] (Lab) [address] [place], [address], 10/31/2023 13:35:51 10/31/19 24 10/31/2023 COMPR EHENS MELVIN METAB OLIC PANEL aspartate aminotransfe rase 22 U/L 15-37 Not Available [facility] (Lab) [address] [place], [address], 10/31/2023 13:35:51 10/31/19 24 10/31/2023 COMPR EHENS MELVIN METAB OLIC PANEL bilirubin, total 0.40 mg/dL 0.20-1 .30 Not Available [facility] (Lab) [address] [place], [address], 10/31/2023 13:35:51 10/31/19 24 10/31/2023 COMPR EHENS MELVIN METAB OLIC PANEL calcium 8.5 mg/dL 8.4-10 .2 Not Available [facility] (Lab) [address] [place], [address], 10/31/2023 13:35:51 10/31/19 24 10/31/2023 COMPR EHENS MELVIN METAB OLIC PANEL total protein 5.6 g/dL 6.3-8. 2 low Not Available [facility] (Lab) [address] [place], [address], 10/31/2023 13:35:51 10/31/19 24 10/31/2023 COMPR EHENS MLEVIN METAB OLIC PANEL albumin 3.1 g/dL 3.0-4. 4 Not Available [facility] (Lab) [address] [place], [address], 10/31/2023 13:35:51 10/31/19 24 10/31/2023 COMPR EHENS MELVIN METAB OLIC PANEL globulin 2.5 g/dL 2.6-4. 2 low Not Available [facility] (Lab) [address] [place], [address], 10/31/2023 13:35:51 10/31/19 24 10/31/2023 COMPR EHENS MELVIN METAB OLIC PANEL A/G ratio 1.2 ratio 1.0-2. 0 Not Available [facility] (Lab) [address] [place], [address], 10/31/2023 13:35:51 10/31/19 24 10/31/2023 TSH W/REF CAL FT4 TSH with reflex free T4 1.180 uIU/m L 0.465- 4.680 Not Available [facility] (Lab) [address] [place], [address], 10/31/2023 14:11:45 10/31/19 24 10/31/2023 VITAM IN D 25-HY DROXY vd25oh 22.5 NG/mL 30-100 low Vitam in D Statu s: Defic ient: <20 ng/mL Insuf ficie nt: 20-29 ng/mL Suffi cient : 30-10 0 ng/mL Not Available [facility] (Lab) [address] [place], [address], 10/31/2023 14:31:42 10/31/19 24 10/31/2023 VITAM IN B12 (TAMMY NIELS ) vb12 466 pg/mL 239-93 1 Not Available [facility] (Lab) [address] [place], [address], 10/31/2023 15:21:45 10/31/19 24 10/31/2023 FOLAT E, SERUM /PLAS MA folate 11.5 NG/mL 2.76-2 0.0 Not Available [facility] (Lab) [address] [place], [address], 10/31/2023 15:21:50 11/16/19 24 11/16/2023 COMPR EHENS MELVIN METAB OLIC PANEL sodium 139 mmol/ L 137-14 5 Not Available [facility] (Lab) [address] [place], [address], 11/16/2023 14:15:15 11/16/19 24 11/16/2023 COMPR EHENS MELVIN METAB OLIC PANEL potassium 3.9 mmol/ L 3.5-5. 1 Not Available [facility] (Lab) [address] [place], [address], 11/16/2023 14:15:15 11/16/19 24 11/16/2023 COMPR EHENS MELVIN METAB OLIC PANEL chloride 112 mmol/ L 98-107 high Not Available [facility] (Lab) [address] [place], [address], 11/16/2023 14:15:15 11/16/19 24 11/16/2023 COMPR EHENS MELVIN METAB OLIC PANEL carbon dioxide 25 mmol/ L 22-30 Not Available [facility] (Lab) [address] [place], [address], 11/16/2023 14:15:15 11/16/19 24 11/16/2023 COMPR EHENS MELVIN METAB OLIC PANEL anion gap 5.9 mmol/ L 14-22 low Not Available [facility] (Lab) [address] [place], [address], 11/16/2023 14:15:15 11/16/19 24 11/16/2023 COMPR EHENS MELVIN METAB OLIC PANEL glucose 88 mg/dL 70-99 Not Available [facility] (Lab) [address] [place], [address], 11/16/2023 14:15:15 11/16/19 24 11/16/2023 COMPR EHENS MELVIN METAB OLIC PANEL BUN 20 mg/dL 8-19 high Not Available [facility] (Lab) [address] [place], [address], 11/16/2023 14:15:15 11/16/19 24 11/16/2023 COMPR EHENS MELVIN METAB OLIC PANEL creatinine 0.99 mg/dL 0.66-1 .25 Not Available [facility] (Lab) [address] [place], [address], 11/16/2023 14:15:15 11/16/19 24 11/16/2023 COMPR EHENS MELVIN METAB OLIC PANEL GFR 53 Refer ence Range : [place] ge GFR Healt hy Adult : >60 [...] or ethni c subgr oups, such as Hisdc nics. Outsi de the valid ated vane [...] of age, a pedia tric GFR calcu latbiju is avail able on the F websi te: https ://vickie [email or web address] coppola.o ivonne/pr ofess ional s/kdo qi/gf r_cal culat or Not Available [facility] (Lab) [address] [place], [address], 11/16/2023 14:15:15 11/16/19 24 11/16/2023 COMPR EHENS MELVIN METAB OLIC PANEL alkaline phosphatase 74 U/L 38-126 Not Available [facility] (Lab) [address] [place], [address], 11/16/2023 14:15:15 11/16/19 24 11/16/2023 COMPR EHENS MELVIN METAB OLIC PANEL alanine aminotransfe rase 15 U/L 0-35 Not Available [facility] (Lab) [address] [place], [address], 11/16/2023 14:15:15 11/16/19 24 11/16/2023 COMPR EHENS MELVIN METAB OLIC PANEL aspartate aminotransfe rase 25 U/L 15-37 Not Available [facility] (Lab) [address] [place], [address], 11/16/2023 14:15:15 11/16/19 24 11/16/2023 COMPR EHENS MELVIN METAB OLIC PANEL bilirubin, total 0.30 mg/dL 0.20-1 .30 Not Available [facility] (Lab) [address] [place], [address], 11/16/2023 14:15:15 11/16/19 24 11/16/2023 COMPR EHENS MELVIN METAB OLIC PANEL calcium 8.5 mg/dL 8.4-10 .2 Not Available [facility] (Lab) [address] [place], [address], 11/16/2023 14:15:15 11/16/19 24 11/16/2023 COMPR EHENS MELVIN METAB OLIC PANEL total protein 5.4 g/dL 6.3-8. 2 low Not Available [facility] (Lab) [address] [place], [address], 11/16/2023 14:15:15 11/16/19 24 11/16/2023 COMPR EHENS MELVIN METAB OLIC PANEL albumin 3.2 g/dL 3.0-4. 4 Not Available [facility] (Lab) [address] [place], [address], 11/16/2023 14:15:15 11/16/19 24 11/16/2023 COMPR EHENS MELVIN METAB OLIC PANEL globulin 2.2 g/dL 2.6-4. 2 low Not Available [facility] (Lab) [address] [place], [address], 11/16/2023 14:15:15 11/16/19 24 11/16/2023 COMPR EHENS MELVIN METAB OLIC PANEL A/G ratio 1.5 ratio 1.0-2. 0 Not Available [facility] (Lab) [address] [place], [address], 11/16/2023 14:15:15 03/11/20 24 03/11/2024 urina lysis , dipst ick Leukocytes (reference range: negative leander/ l) Negati ve Not Available [facility] Internal Med [facility] [address] [facility] [address], [place], [address], 03/11/2024 14:58:59 03/11/20 24 03/11/2024 urina lysis , dipst ick Nitrite (reference rage: negative mg/dl) negati ve Not Available [facility] Internal Med [facility] [address] [facility] [address], [place], [address], 03/11/2024 14:58:59 03/11/20 24 03/11/2024 urina lysis , dipst ick Urobilinogen (reference range: 0.2-1 mg/dl) 0.2 Not Available [facility] Internal [facility] [address], [place], [address], 03/11/2024 14:58:59 03/11/20 24 03/11/2024 urina lysis , dipst ick Protein (reference range: negative mg/dl) Negati ve Not Available [facility] Internal [place] [address] [address], [place], [address], 03/11/2024 14:58:59 03/11/20 24 03/11/2024 urina lysis , dipst ick pH (reference range: 5-7) 6.0 Not Available [facility] [address], [place], [address], 03/11/2024 14:58:59 03/11/20 24 03/11/2024 urina lysis , dipst ick Blood (reference range: negative Shaun/ l) Negati ve Not Available [facility] Internal [facility] [address], [place], [address], 03/11/2024 14:58:59 03/11/20 24 03/11/2024 urina lysis , dipst ick Specific [place] (reference range: 1.005-1.030) 1.010 Not Available [facility] [address], [place], [address], 03/11/2024 14:58:59 03/11/20 24 03/11/2024 urina lysis , dipst ick Ketone (reference range: negative mg/dl) Negati ve Not Available [facility] Internal [place] [address] [address], [place], [address], 03/11/2024 14:58:59 03/11/20 24 03/11/2024 urina lysis , dipst ick Bilirubin (reference range: negative mg/dl) Negati ve Not Available [facility] Internal [facility] [address], [place], [address], 03/11/2024 14:58:59 03/11/20 24 03/11/2024 urina lysis , dipst ick Glucose (reference range: negative mg/dl) Negati ve Not Available [facility] Internal [place] [address] [facility] [address], [place], [address], 03/11/2024 14:58:59 03/11/20 24 03/11/2024 urina lysis , dipst ick Appearance Clear Not Available [facility] Internal [place] [address] [facility] [address], [place], [address], 03/11/2024 14:58:59 03/11/20 24 03/11/2024 urina lysis , dipst ick Color Pale Yellow Not Available [facility] Internal [place] [address] [facility] [address], [place], [address], 03/11/2024 14:58:59 06/03/2006/03/2024 CBC/C OMPLE TE BLD COUNT W/DIF F white blood cells 5.7 x10'3 /uL 4.2-10 .8 Not Available [facility] (Lab) [address], [place], [address], 06/03/2024 17:28:58 06/03/2006/03/2024 CBC/C OMPLE TE BLD COUNT W/DIF F red blood cells 3.64 x10'6 /uL 3.80-5 .20 low Not Available [facility] (Lab) [address], [place], [address], 06/03/2024 17:28:58 06/03/2006/03/2024 CBC/C OMPLE TE BLD COUNT W/DIF F hemoglobin 11.2 g/dL 12.0-1 5.6 low Not Available [facility] (Lab) [address] [place], [address], 06/03/2024 17:28:58 06/03/2006/03/2024 CBC/C OMPLE TE BLD COUNT W/DIF F hematocrit 35.2 % 35.7-4 5.7 low Not Available [facility] (Lab) [address] [place], [address], 06/03/2024 17:28:58 06/03/2006/03/2024 CBC/C OMPLE TE BLD COUNT W/DIF F mean red cell volume 96.7 fL 82.0-9 9.0 Not Available [facility] (Lab) [address] [place], [address], 06/03/2024 17:28:58 06/03/2006/03/2024 CBC/C OMPLE TE BLD COUNT W/DIF F mean red cell hemoglobin 30.8 pg 27.0-3 3.0 Not Available [facility] (Lab) [address] [place], [address], 06/03/2024 17:28:58 06/03/2006/03/2024 CBC/C OMPLE TE BLD COUNT W/DIF F mean RBC HGB concentratio n 31.8 g/dL 31.0-3 6.0 Not Available [facility] (Lab) [address] [place], [address], 06/03/2024 17:28:58 06/03/2006/03/2024 CBC/C OMPLE TE BLD COUNT W/DIF F red cell distribution width 13.7 % 11.8-1 5.5 Not Available [facility] (Lab) [address] [place], [address], 06/03/2024 17:28:58 06/03/2006/03/2024 CBC/C OMPLE TE BLD COUNT W/DIF F platelets 236 x10'3 /uL 150-40 0 Not Available [facility] (Lab) [address] [place], [address], 06/03/2024 17:28:58 06/03/2006/03/2024 CBC/C OMPLE TE BLD COUNT W/DIF F mean platelet volume 10.5 fL 9.0-12 .4 Not Available [facility] (Lab) [address] [place], [address], 06/03/2024 17:28:58 06/03/2006/03/2024 CBC/C OMPLE TE BLD COUNT W/DIF F neutrophils 54.4 % 39.0-7 2.0 Not Available [facility] (Lab) [address] [place], [address], 06/03/2024 17:28:58 06/03/2006/03/2024 CBC/C OMPLE TE BLD COUNT W/DIF F lymphocytes 36.1 % 16.0-4 7.0 Not Available [facility] (Lab) [address] [place], [address], 06/03/2024 17:28:58 06/03/2006/03/2024 CBC/C OMPLE TE BLD COUNT W/DIF F monocytes 6.0 % 5.0-12 .0 Not Available [facility] (Lab) [address] [place], [address], 06/03/2024 17:28:58 06/03/2006/03/2024 CBC/C OMPLE TE BLD COUNT W/DIF F eosinophils 2.8 % 1.0-7. 0 Not Available [facility] (Lab) [address] [place], [address], 06/03/2024 17:28:58 06/03/2006/03/2024 CBC/C OMPLE TE BLD COUNT W/DIF F basophils 0.5 % 0.0-2. 0 Not Available [facility] (Lab) [address] [place], [address], 06/03/2024 17:28:58 06/03/2006/03/2024 CBC/C OMPLE TE BLD COUNT W/DIF F immature granulocytes 0.2 % 0.00-0 .50 Not Available [facility] (Lab) [address] [place], [address], 06/03/2024 17:28:58 06/03/2006/03/2024 CBC/C OMPLE TE BLD COUNT W/DIF F neutrophils, absolute count 3.07 x10'3 /uL 1.5-8. 0 Not Available [facility] (Lab) [address] [place], [address], 06/03/2024 17:28:58 06/03/2006/03/2024 CBC/C OMPLE TE BLD COUNT W/DIF F lymphocytes, absolute count 2.04 x10'3 /uL 1.07-3 .43 Not Available [facility] (Lab) [address] [place], [address], 06/03/2024 17:28:58 06/03/2006/03/2024 CBC/C OMPLE TE BLD COUNT W/DIF F monocytes, absolute count 0.34 x10'3 /uL 0.29-0 .99 Not Available [facility] (Lab) [address] [place], [address], 06/03/2024 17:28:58 06/03/2006/03/2024 CBC/C OMPLE TE BLD COUNT W/DIF F eosinophils, absolute count 0.16 x10'3 /uL 0.02-0 .53 Not Available [facility] (Lab) [address] [place], [address], 06/03/2024 17:28:58 06/03/2006/03/2024 CBC/C OMPLE TE BLD COUNT W/DIF F basophils, absolute count 0.03 x10'3 /uL 0.01-0 .08 Not Available [facility] (Lab) [address] [place], [address], 06/03/2024 17:28:58 06/03/2006/03/2024 CBC/C OMPLE TE BLD COUNT W/DIF F immature granulocytes ,absolute 0.01 x10'3 /uL 0.00-0 .05 Not Available [facility] (Lab) [address] [place], [address], 06/03/2024 17:28:58 06/03/2006/03/2024 CBC/C OMPLE TE BLD COUNT W/DIF F nucleated red blood cells 0.0 % -0 Not Available [facility] (Lab) [address] [place], [address], 06/03/2024 17:28:58 06/03/2006/03/2024 CBC/C OMPLE TE BLD COUNT W/DIF F NRBC# 0.00 x10'3 /uL Not Available [facility] (Lab) [address] [place], [address], 06/03/2024 17:28:58 06/03/2006/03/2024 VITAM IN D 25-HY DROXY vd25oh 32.3 NG/mL 30-100 Vitam in D Statu s: Defic ient: <20 ng/mL Insuf ficie nt: 20-29 ng/mL Suffi cient : 30-10 0 ng/mL Not Available [facility] (Lab) [address] [place], [address], 06/03/2024 21:05:49 06/03/2006/03/2024 VITAM IN B12 (TAMMY NIELS ) vb12 564 pg/mL 239-93 1 Not Available [facility] (Lab) [address] [place], [address], 06/03/2024 21:15:01 06/03/2006/03/2024 FOLAT E, SERUM /PLAS MA folate >20.0 NG/mL 2.76-2 0.0 Not Available [facility] (Lab) [address] [place], [address], 06/03/2024 21:15:02 06/03/2006/03/2024 LIPID PANEL cholesterol 140 mg/dL 140-19 9 NIH ESTER NSUS RECOM MENDA TION FOR CARYN STERO L: ADULT CHILD LOW RISK: <200 <170 BORDE RLINE : <200- 239 ----- HIGH RISK: >240 >200 Not Available [facility] (Lab) [address] [place], [address], 06/03/2024 21:52:01 06/03/2006/03/2024 LIPID PANEL triglyceride s 154 mg/dL 0-150 high NIH ESTER NSUS REPOR T RECOM MENDA TION FOR TRIGL YCERI KIMI: ADULT CHILD LOW RISK: <150 ----- BODER LINE: 150-1 99 ----- HIGH RISK: >200 ----- Not Available [facility] (Lab) [address] [place], [address], 06/03/2024 21:52:01 06/03/2006/03/2024 LIPID PANEL HDL cholesterol 65 mg/dL 40- Not Available [facility] (Lab) [address] [place], [address], 06/03/2024 21:52:01 06/03/2006/03/2024 LIPID PANEL LDL cholesterol, [...] WILL NOT BE REPOR DAYANNA. Not Available [facility] (Lab) [address] [place], [address], 06/03/2024 21:52:01 06/03/2006/03/2024 COMP MET PANEL /LIVE R sodium 136 mmol/ L 137-14 5 low Not Available [facility] (Lab) [address] [place], [address], 06/03/2024 21:52:06 06/03/2006/03/2024 COMP MET PANEL /LIVE R potassium 3.9 mmol/ L 3.5-5. 1 Not Available [facility] (Lab) [address] [place], [address], 06/03/2024 21:52:06 06/03/2006/03/2024 COMP MET PANEL /LIVE R chloride 106 mmol/ L 98-107 Not Available [facility] (Lab) [address] [place], [address], 06/03/2024 21:52:06 06/03/2006/03/2024 COMP MET PANEL /LIVE R carbon dioxide 27 mmol/ L 22-30 Not Available [facility] (Lab) [address] [place], [address], 06/03/2024 21:52:06 06/03/2006/03/2024 COMP MET PANEL /LIVE R anion gap 6.9 mmol/ L 14-22 low Not Available [facility] (Lab) [address] [place], [address], 06/03/2024 21:52:06 06/03/20 24 06/03/2024 COMP MET PANEL /LIVE R glucose 83 mg/dL 70-99 Not Available [facility] (Lab) [address] [place], [address], 06/03/2024 21:52:06 06/03/20 24 06/03/2024 COMP MET PANEL /LIVE R BUN 18 mg/dL 8-19 Not Available [facility] (Lab) [address] [place], [address], 06/03/2024 21:52:06 06/03/20 24 06/03/2024 COMP MET PANEL /LIVE R creatinine 1.17 mg/dL 0.66-1 .25 Not Available [facility] (Lab) [address] [place], [address], 06/03/2024 21:52:06 06/03/20 24 06/03/2024 COMP MET PANEL /LIVE R GFR 44 Refer ence Range : [place] ge GFR Healt hy Adult : >60 [...] or ethni c subgr oups, such as [facility] nics. Outsi de the valid ated vane [...] calcu lator is avail able on the [facility] websi te: https ://ww w.aiden waltersy.o rg/pr ofess ional s/kdo qi/gf r_cal culat or Not Available [facility] (Lab) [address] [place], [address], 06/03/2024 21:52:06 06/03/20 24 06/03/2024 COMP MET PANEL /LIVE R alkaline phosphatase 79 U/L 38-126 Not Available [facility] (Lab) [address] [place], [address], 06/03/2024 21:52:06 06/03/2006/03/2024 COMP MET PANEL /LIVE R alanine aminotransfe rase 17 U/L 0-35 Not Available [facility] (Lab) [address] [place], [address], 06/03/2024 21:52:06 06/03/2006/03/2024 COMP MET PANEL /LIVE R aspartate aminotransfe rase 23 U/L 15-37 Not Available [facility] (Lab) [address] [place], [address], 06/03/2024 21:52:06 06/03/20 24 06/03/2024 COMP MET PANEL /LIVE R bilirubin, total 0.20 mg/dL 0.20-1 .30 Not Available [facility] (Lab) [address] [place], [address], 06/03/2024 21:52:06 06/03/2006/03/2024 COMP MET PANEL /LIVE R bilirubin, conjugated (direct) 0.00 mg/dL 0.00-0 .30 Not Available [facility] (Lab) [address] [place], [address], 06/03/2024 21:52:06 06/03/20 24 06/03/2024 COMP MET PANEL /LIVE R biliurubin,u ncong. (indirect) 0.00 mg/dL 0.00-1 .1 Not Available [facility] (Lab) [address] [place], [address], 06/03/2024 21:52:06 06/03/2006/03/2024 COMP MET PANEL /LIVE R calcium 8.7 mg/dL 8.4-10 .2 Not Available [facility] (Lab) [address] [place], [address], 06/03/2024 21:52:06 06/03/2006/03/2024 COMP MET PANEL /LIVE R total protein 5.3 g/dL 6.3-8. 2 low Not Available [facility] (Lab) [address] [place], [address], 06/03/2024 21:52:06 06/03/2006/03/2024 COMP MET PANEL /LIVE R albumin 3.4 g/dL 3.0-4. 4 Not Available [facility] (Lab) [address] [place], [address], 06/03/2024 21:52:06 06/03/2006/03/2024 COMP MET PANEL /LIVE R globulin 1.9 g/dL 2.6-4. 2 low Not Available [facility] (Lab) [address] [place], [address], 06/03/2024 21:52:06 06/03/2006/03/2024 COMP MET PANEL /LIVE R A/G ratio 1.8 ratio 1.0-2. 0 Not Available [facility] (Lab) [address] [place], [address], 06/03/2024 21:52:06 06/03/2006/03/2024 TSH W/REF CAL FT4 TSH with reflex free T4 1.860 uIU/m L 0.465- 4.680 Not Available [facility] (Lab) [address] [place], [address], 06/03/2024 21:58:21 02/28/20 24 02/28/2024 daryli susana/ramya russ tic resul t No observ ation record ed. [facility] [address] [place], [address], 02/28/2024 09:19:08 Result Notes None recorded. Problems Name Problem SNOMED Code Status Onset Date Resolution Date Notes Provider Name and Address Organization Details Recorded Time Lymphedema of lower extremity 786486676 Active 2022 Not Available [facility] 3 06:31:28 Rosacea 939332190 Active 2022 Not Available [facility] 3 06:31:28 Iron deficiency 46791567 Active 2022 Not Available [facility] 3 06:31:28 Acute urinary tract infection 172698466 Active 2022 Not Available [facility] 3 06:31:28 Urinary symptoms 929141065 Active 2022 Not Available [facility] 3 06:31:28 Vaginitis 56900570 Active 2022 Not Available [facility] 3 06:31:28 Fracture of neck of femur 1426729 Active 2022 Not Available [facility] 3 06:31:28 Serum vitamin B12 below reference range 767198538 Active 2023 Melina graf MD [address] [facility], [facility] [address], [place], [address] , [facility] [employer] [facility] 4 15:15:49 Serum potassium level below reference range 596882613 Active 2023 LISSA Wheat, [place] [facility] 4 11:27:57 Iron deficiency anemia 53224624 Active 2023 LISSA Wheat, [place] [facility] 4 11:29:07 Chronic kidney disease 065133010 Active 2023 Michelle Mott MA null, [facility] 4 11:59:40 Candidiasi s of skin 94519096 Active 2023 Michelle Mott MA null, [facility] 4 15:21:44 Hypoprotei nemia 6502954 Active 2023 Melina graf MD [address], [place], [address] , [facility] 4 18:17:18 Edema of lower extremity 775094086 Active 2023 Melina graf MD [address], [place], [address] , [facility] 4 14:33:05 Essential hypertensi on 97048181 Active 2024 Melina graf MD [address], [place], [address] , [facility] 5 12:08:15 Electrocar diogram abnormal 114379030 Active 2024 VINI Oliveira null, [facility] 5 09:41:20 Chronic obstructiv e pulmonary disease 30508807 Active Not Available [facility] 3 06:31:28 Pain in throat 330200215 Active 2021 Not Available [facility] 3 06:31:28 Cobalamin deficiency 430412116 Active 2021 Not Available [facility] 3 06:31:28 Edema 195126371 Completed Not Available [facility] 3 04:52:36 Anemia 240598567 Active 2021 Not Available [facility] 3 06:31:28 Vitamin D deficiency 17432557 Active Not Available [facility] 3 06:31:28 Sinusitis 89766648 Completed 201601/16/2017 Not Available [facility] 3 04:52:36 Disorder of vitamin B12 934153300 Active 2020 Not Available [facility] 3 06:31:28 Contact dermatitis 76271732 Completed Not Available [facility] 3 04:52:36 Hypothyroi dism 39052961 Active Not Available [facility] 3 06:31:28 Eczema 65838730 Active Not Available [facility] 3 06:31:28 Vitamin B deficiency 12246477 Active Not Available [facility] 3 06:31:28 Hypocalcem ia 5663457 Active 2021 Not Available [facility] 3 06:31:28 Hyperlipid emia 06346824 Active Not Available [facility] 3 06:31:28 Lipoma 63391790 Active Not Available [facility] 3 06:31:28 Problem Notes None recorded. Procedures Surgical History Date Name Laterality Status Provider Name and Address Organization Details Recorded Time 03/11/20 24 Medicare Wellness CPT Code, subsequent completed Thompson Quiñones LPN [facility] [employer] 03/04/2024 12:53:51 01/18/20 23 Hip surgery completed VINI Oliveira [facility] 10/11/2023 15:15:58 Colonoscopy completed Not Available [facility] 11/01/2022 04:44:20 Cholecystectomy completed Not Available [facility] 11/01/2022 04:44:20 Hysterectomy completed Not Available [facility] 11/01/2022 04:44:20 excision of group of lymph nodes completed VINI Oliveira SC Leanne [facility] 10/11/2023 15:16:41 Cataract Surgery completed VINI Oliveira [place] Leanne [place] [employer] [facility] 12/09/2024 12:03:09 Imaging Results Imaging Date Name Status LastModified by Organiz [facility] Details LastModified Time 02/28/2024 imaging/diagn ostic result active [address], [address], 02/28/2024 09:19:08 Procedure Notes None recorded. Medical Equipment None Reported. Allergies Allergen ID Allergen Name Allergen Category Reaction Reaction Severity Criticality Documentation Date Start Date Code Code System Note Provider Name and Address Organization Details Recorded Time 8184 Terramyci n medicatio n rash Not available Not available 11/01/202263629 4 RxNorm Not Available [facility] 3 05:04:15 8185 Keflex medicatio n rash Not available Not available 11/01/202265307 7 RxNorm Not Available [facility] 3 05:04:15 8186 erythromy jeimy medicatio n rash Not available Not available 11/01/2022 4053 RxNorm Not Available [facility] 3 05:04:16 8187 amoxicill in medicatio n rash Not available Not available 11/01/2022 723 RxNorm Not Available [facility] 3 05:04:16 Medications Name Sig Start Date [...] Not Available ketorolac 0.5 % eye drops INSTILL 1 DROP INTO THE OPERATED EYE 3 TIMES A DAY BEGINNING 3 DAYS BEFORE SURGERY 12/09 completed Not Available Not Available Not Available Kenalog 40 mg/mL suspension for injection Take 2 mL every day by injection route for 1 day. 07/22 completed [facility]# [id number] [id number] Not Available Not Available Not Available ciclopirox 8 % topical solution APPLY TO NAIL DAILY 10/11 completed Not Available Not Available Not Available prednisolon e acetate 1 % eye drops,suspe nsion INSTILL 1 DROP INTO THE OPERATED EYE 3 TIMES A DAY BEGINNING THE DAY AFTER SURGERY 12/09 completed Not Available Not Available Not Available [...] D2) 1,250 mcg (50,000 unit) capsule TAKE 2 CAPSULE BY MOUTH ONCE WEEKLY active Not Available Not Available No t [...] Available No t Available PreserVisio n AREDS 12/09 completed Not Available Not Available Not Available [employer] [...] Updated DateTime 4 157.48 cm 24.7 kg/m2 69663.9 7 g 97.9 [degF] 72 /min 120 mm[Hg] 78 mm[Hg] VINI Oliveira [facility] [employer] [facility] 4 15:18:19 Date Recorded Body height Body mass index (BMI) Body weight Body temperature Heart rate Systolic blood pressure Diastolic blood pressure Provider Name and Address Organization Details Last Updated DateTime 4 157.48 cm 24.3 kg/m2 69122.7 9 g 97.9 [degF] 72 /min 120 mm[Hg] 68 mm[Hg] Esperanza Mcelroy Lesia [facility] [employer] [facility] 4 14:11:11 Date Recorded Pain severity - 0-10 verbal numeric rating [Score] - Reported Provider Name and Address Organization Details Last Updated DateTime 03/11/2024 5 Thompson Quiñones LPN [facility] [employer] [facility] 03/11/2024 14:42:45 Date Recorded Body height Body mass index (BMI) Body weight Body temperature Heart rate Oxygen saturation Oxygen saturation in Arterial blood by Pulse oximetry Systolic blood pressure Diastolic blood pressure Provider Name and Address Organization Details Last Updated DateTime 4 157.48 cm 24.9 kg/m2 14616.5 6 g 96.8 [degF] 77 /min 99 % 99 % 134 mm[Hg] 70 mm[Hg] Nohemy Ruggiero MA [facility] [employer] [facility] 4 11:16:19 Date Recorded Body height Body mass index (BMI) Body weight Body temperature Heart rate Respiratory rate Oxygen saturation Oxygen saturation in Arterial blood by Pulse oximetry Pain severity - 0-10 verbal numeric rating [Score] - Reported Systolic blood pressure Diastolic blood pressure Provider Name and Address Organization Details Last Updated DateTime 5 157.48 cm 24.3 kg/m2 12785.7 9 g 98 [degF] 56 /min 16 /min 98 % 98 % 0 142 mm[Hg] 70 mm[Hg] Thompson Quiñones LPN [facility] [employer] [facility] 5 11:34:12 Date Recorded Body height Body mass index (BMI) Body weight Body temperature Heart rate Systolic blood pressure Diastolic blood pressure Provider Name and Address Organization Details Last Updated DateTime 5 157.48 cm 24 kg/m2 48685.6 g 97.4 [degF] 60 /min 122 mm[Hg] 2 mm[Hg] VINI Oliveira [place] [facility] [employer] 12:05:00 Social History Question Answer Notes LastModified by Organization Details LastModified Time Tobacco Smoking Status Never Smoker Not Available [employer] 11/01/2022 04:13:32 Do You Have An Advance Directive? Yes Information not available 10/11/2023 What Is Your Level Of Alcohol Consumption? Occasional [id number] Information not available 11/01/2022 Are You Blind Or Do You Have Difficulty Seeing? No Information not available 10/11/2023 Is Blood Transfusion Acceptable In An Emergency? Yes [email or web address] Information not available 03/11/2024 What Is Your Level Of Caffeine Consumption? Occasional [id number] Information not available 11/01/2022 How Much Tobacco Do You Chew? None [id number].[id number] [id number] Information not available 11/01/2022 What Is Your Code Status? DNR [email or web address] Information not available 03/11/2024 In The 14 Days Before Symptom Onset, Have You Had Close Contact With A Laboratory-conf irmed COVID-19 While That Case Was Ill? No [id number] Information not available 11/01/2022 In The 14 Days Before Symptom Onset, Have You Had Close Contact With A Person Who Is Under Investigation For COVID-19 While That Person Was Ill? No [id number] [id number] Information not available 11/01/2022 Are You Currently Employed? No Information not available 10/11/2023 Are You Deaf Or Do You Have Serious Difficulty Hearing? No Information not available 10/11/2023 What Type Of Diet Are You Following? SPECIFIC Due To Scarring [id number].[id number] [id number] Information not available 11/01/2022 Which Illicit Or Recreational Drugs Have You Used? None [id number] [id number] Information not available 11/01/2022 Do You Or Have You Ever Used E-cigarettes Or Vape? Never Used Electronic Cigarettes [id number].0301 [id number] Information not available 11/01/2022 What Is The Highest Grade Or Level Of School You Have Completed Or The Highest Degree You Have Received? [id number] [id number].0301 [id number] Information not available 11/01/2022 How Many Days Of Moderate To Strenuous Exercise, Like A Brisk Walk, Did You Do In The Last 7 Days? 0 [email or web address] Information not available 03/11/2024 Have There Been Any Changes To Your Family Or Social Situation? No MIGRATION.0301 [id number] Information not available 11/01/2022 What Is The Fluoride Status Of Your Home? Unknown [id number].0301 [id number] Information not available 11/01/2022 Are There Any Guns Present In Your Home? No MIGRATION.0301 [id number] Information not available 11/01/2022 Do You Use Insect Repellent Routinely? No [id number].0301 [id number] Information not available 11/01/2022 Where Do You Live? [place] [id number] Information not available 11/01/2022 Advance Directive- Providers Has Reviewed Directive And Consents To Follow Them (insert Provider Name With Any Objectives In Notes Field) Yes Information not available 03/11/2024 Presence Of Domestic Violence No [email or web address] Information not available 03/11/2024 Guns Present In The Home? No [email or web address] Information not available 03/11/2024 Are You Able To Care For Yourself? Yes [email or web address] Information not available 03/11/2024 Are You Blind Or Do Yo Have Difficulty Seeing? No Information not available 03/11/2024 Are You Deaf Or Do You Have Serious Difficulty Hearing? No Information not available 03/11/2024 General Stress Level? Low [email or web address] Information not available 03/11/2024 Live Alone Of With Others? With Others Her Daughter And Grandson Live With Her [email or web address] Information not available 03/11/2024 Do You Have A Medical Power Of Induction Coordination Engineer? Yes Information not available 10/11/2023 What Was The Date Of Your Most Recent Tobacco Screening? 12/09/2024 Information not available 12/09/2024 How Many Children Do You Have? 2 [email or web address] Information not available 03/11/2024 Have You Ever Been Counseled For Unhealthy Alcohol Use? No Information not available 03/11/2024 Do You Have Any Pets? No [id number].[id number] [id number] Information not available 11/01/2022 What Is Your Relationship Status? MIGRATION.0301 [id number] Information not available 11/01/2022 Do You Use Your Seat Belt Or Car Seat Routinely? Yes [email or web address] Information not available 03/11/2024 Do You Have Smoke And Carbon Monoxide Detectors In Your Home? No MIGRATION.0301 [id number] Information not available 11/01/2022 Are You Passively Exposed To Smoke? No MIGRATION.0301 [id number] Information not available 11/01/2022 Do You Or Have You Ever Used Smokeless Tobacco? Never Used Smokeless Tobacco MIGRATION.0301 [id number] Information not available 11/01/2022 Are There Any Smokers In Your House? No MIGRATION.0301 [id number] Information not available 11/01/2022 What Types Of Sporting Activities Do You Participate In? None MIGRATION.0301 [id number] Information not available 11/01/2022 Do You Feel Stressed (tense, Restless, Nervous, Or Anxious, Or Unable To Sleep At Night)? [id number] [email or web address] Information not available 03/11/2024 Do You Use Any Illicit Or Recreational Drugs? No MIGRATION.0301 [id number] Information not available 11/01/2022 Do You Use Sunscreen Routinely? Yes MIGRATION.0301 [id number] Information not available 11/01/2022 Has Tobacco Cessation Counseling Been Provided? No N/a Information not available 10/11/2023 Have You Recently Traveled Abroad? No MIGRATION.0301 [id number] Information not available 11/01/2022 Do You Have Any Dietary Restrictions? No MIGRATION.0301 [id number] Information not available 11/01/2022 Do You Or Have You Ever Used Any Other Forms Of Tobacco Or Nicotine? No Information not available 10/11/2023 How Many Days In The Past Year Have You Consumed 4 Or More Drinks? -1 [email or web address] Information not available 03/11/2024 Sex: Unknown Functional [...] 10/11/2023 What is your exercise level? None Information not available 03/11/2024 Mental Status Question Answer Note LastModified by Organization D etails LastModified Time Do you have difficulty concentrating, remembering or making decisions? No Information no t available 10/11/2023 Family History Relationship Description Onset Age of this Age Resolved Age Notes LastModified by Organization Details LastModified Time Father Hypertensive disorder [id number] Not available 11/01/2022 04:44:22 Mother Rheumatic fever MIGRATION.824 [id number] Not available 11/01/2022 04:44:22 Unspecified Relation Family history of neoplasm of skin Not available 2023 15:13:12 Medical History Condition Response SKIN PROBLEMS Y CANCER: SPECIFY Y ARTHRITIS Y THYROID DISEASE Y ALLERGIES/HAYFEVER Y HAVE YOU BEEN HOSPITALIZED OR SEEN IN [facility] ER IN THE PAST YEAR ? [...] Immunizations Vaccine Type Date Status Note Provider Nam e and Address Organization Details Recorded Time Influenza, split virus, trivalent, preservative 3 completed ADAM Myles, [employer] 03/05/2024 13:48:49 COVID-19, mRNA, LNP-S, PF, fernanda-sucrose, 30 mcg/0.3 mL 4 completed VINI Oliveira, [employer] 12/09/2024 12:01:53 RSV, recombinant, protein subunit RSVpreF, adjuvant reconstituted, 0.5 mL, PF 4 completed VINI Oliveira [facility] 12/09/2024 12:01:53 Tdap 4 completed Esperanza Mcelroy RMA null, [facility] 12/09/2024 12:01:53 zoster recombinant 4 completed Esperanza Mcelroy RMA null, [facility] 12/09/2024 12:01:53 zoster recombinant 4 completed Esperanza Mcelroy RMA null, [facility] 12/09/2024 12:01:53 COVID-19, mRNA, LNP-S, PF, 100 mcg/0.5mL dose or 50 mcg/0.25mL dose 1 completed Thompson Quiñones LPN null, [facility] 03/05/2024 13:48:49 COVID-19, mRNA, LNP-S, PF, 100 mcg/0.5mL dose or 50 mcg/0.25mL dose 1 completed Thompson Quiñones LPN null, [facility] 03/05/2024 13:48:49 COVID-19, mRNA, LNP-S, PF, 100 mcg/0.5mL dose or 50 mcg/0.25mL dose 1 completed Thompson Quiñones LPN null, [facility] 03/05/2024 13:48:49 Influenza, split virus, quadrivalent, preservative 0 completed Not Available [facility] 07/19/2023 06:31:28 Influenza, split virus, quadrivalent, preservative 9 completed Not Available [facility] 07/19/2023 06:31:28 Influenza, split virus, quadrivalent, preservative 8 completed Not Available [facility] 07/19/2023 06:31:28 Influenza, split virus, quadrivalent, preservative 7 completed Not Available [facility] 07/19/2023 06:31:28 Tdap 3 completed Not Available [facility] 07/19/2023 06:31:28 Pneumococcal conjugate PCV 13 5 completed Not Available [facility] 07/19/2023 06:31:28 Influenza, high-dose, quadrivalent, PF 2 completed Not Available [facility] 07/19/2023 06:31:28 Influenza, high-dose, quadrivalent, PF 1 completed Not Available [facility] 07/19/2023 06:31:28 Influenza, high-dose, quadrivalent, PF 0 completed Not Available [facility] 07/19/2023 06:31:28 Influenza, high-dose, trivalent, PF 9 completed Not Available [facility] 07/19/2023 06:31:28 Influenza, high-dose, trivalent, PF 8 completed Not Available [facility] 07/19/2023 06:31:28 Influenza, high-dose, trivalent, PF 7 completed Not Available [facility] 07/19/2023 06:31:28 Influenza, high-dose, trivalent, PF 6 completed Not Available [facility] 07/19/2023 06:31:28 Tdap 6 completed Not Available [facility] 07/19/2023 06:31:28 Influenza, high-dose, trivalent, PF 4 completed Not Available [facility] 07/19/2023 06:31:28 Influenza, high-dose, quadrivalent, PF 3 completed REGGIE Frias [address], [address], [place], [address], [facility] [employer] [facility] (formerly known as [employer]) 07/12/2023 17:44:55 Influenza, high-dose, trivalent, PF 4 completed Melina Sosa MD [address] [facility], [address], [place], [address], [facility] [employer] [facility] (formerly known as [employer]) 06/27/2024 22:16:45 Past Encounters Encounter ID Performer Location Encounter Start Date Encounter Closed Date Diagnosis/Indication Diagnosis SNOMED-CT Code Diagnosis ICD10 Code Diagnosis Note [id number] S_Histor ic_Gateway S_G [facility] Augustine caballero [address], [place], [facility] 02/07/2021 00:00:00 02/07/2021 10:26:41 [id number] Cori Zhu MD [facility] [place] [address] , [place] [address] 02/09/2021 00:00:00 02/09/2021 10:08:32 [id number] Cori Zhu MD [facility] [place] [facility] [address] , [place] [address] 02/16/2021 00:00:00 02/16/2021 10:05:57 [id number] Cori Zhu MD [facility] [place] [facility] [address] [place] [address] 02/23/2021 00:00:00 02/24/2021 16:17:08 [id number] Cori Zhu MD [facility] [place] [facility] [place] [place] [address] 03/02/2021 00:00:00 03/02/2021 09:31:42 [id number] Cori Zhu MD [facility] [place] [facility] [address] [place] [address] 03/30/2021 00:00:00 03/30/2021 10:41:20 [id number] Cori Zhu MD [facility] [place] [facility] [place] [place] [address] 04/28/2021 00:00:00 04/28/2021 09:34:05 [id number] Cori Zhu MD [facility] [place] [facility] [address] , [place] [address] 05/10/2021 00:00:00 05/10/2021 16:13:47 [id number] Cori Zhu MD [facility] [place] [address], [place] [address] 05/30/2021 00:00:00 05/30/2021 09:51:29 [id number] Cori Zhu MD [facility] [place] [address], [place] [address] 06/29/2021 00:00:00 06/29/2021 11:53:15 [id number] Cori hZu MD [facility] [place] [address] , [place] [address] 08/01/2021 00:00:00 08/01/2021 11:08:34 [id number] Cori Zhu MD [facility] [place] [address] , [place] [address] 08/09/2021 00:00:00 08/09/2021 10:26:34 [id number] Cori Zhu MD [facility] [place] [address] , [place] [address] 08/31/2021 00:00:00 08/31/2021 12:17:44 [id number] Cori Zhu MD [facility] [place] [address], [place] [address] 09/29/2021 00:00:00 09/29/2021 11:51:44 [id number] S_[facility] ic_Gateway S_[facility] [place] [address] , [place] [address] 10/31/2021 00:00:00 10/31/2021 11:07:49 [id number] Cori Zhu MD [facility] [place] [address] , [place] [address] 11/28/2021 00:00:00 11/28/2021 12:32:14 [id number] Cori Zhu MD [facility] [place] [address] , [place] [address] 12/28/2021 00:00:00 12/28/2021 10:38:07 [id number] Cori Zhu MD [facility] [place] [address] [place] [address] 01/25/2022 00:00:00 01/25/2022 10:25:23 [id number] Cori Zhu MD [facility] [place] [address] [place] [address] 02/13/2022 00:00:00 02/13/2022 11:10:38 [id number] Cori Zhu MD [facility] [place] [address] [place] [address] 02/22/2022 00:00:00 02/22/2022 10:07:19 [id number] Cori Zhu MD [facility] [place] [address] [place] [address] 03/22/2022 00:00:00 03/22/2022 10:10:05 [id number] S_[facility] ic_Gateway [facility] [place] [address] [place] [address] 04/19/2022 00:00:00 04/19/2022 11:15:12 [id number] Cori Zhu MD [facility] [place] [address] [place] [address] 05/17/2022 00:00:00 05/29/2022 09:27:05 [id number] Cori Zhu MD [facility] [place] [address] [place] [address] 06/09/2022 00:00:00 06/09/2022 17:25:46 [id number] [facility] [employer] [place] [address] 06/14/2022 00:00:00 06/14/2022 10:07:13 [id number] Cori Zhu MD [facility] Augustine caballero [facility] [place] [address] 07/12/2022 00:00:00 07/12/2022 10:24:06 [id number] Melina graf MD [facility] Internal [facility] [place] [address] [facility] [address] [address] 07/18/2022 00:00:00 07/18/2022 15:32:02 [id number] Melina graf MD [facility] [place] [address] [facility] [address] [address] 01/02/2023 14:16:53 01/02/2023 14:57:55 Hyperlipidemia 64087180 E78.5 no meds, working on lifestyle measures Hypothyroidism 63121799 E03.9 On SynthroidU pdate labs Vitamin D deficiency 347 62686 E55.9 Check labsCould not tolerate weekly supplement May need to try OTC daily Chronic ob structive pulmonary disease 59187619 J44.9 Asymptomat ic off of medsCall office if any issues Cobalamin deficiency 190 908360 E53.8 On monthly B12 shots Lymphedema of lower extremity 658897612 I89.0 wears compressio n stockings Rosacea 407032677 L71.9 follows silvano [place] metronid[place] ole from them [id number] Melina graf MD [facility] [place] [address] [facility] [address] [place] [address] 03/26/2023 11:19:00 03/26/2023 11:50:44 Hyperlipidemia 83368342 E78.5 no meds, working on lifestyle measures Hypothyroidism 24177348 E03.9 On SynthroidU pdate labs Vitamin D deficiency 347 72288 E55.9 Could not tolerate weekly supplement May need to try OTC daily Chronic ob structive pulmonary disease 06483869 J44.9 Asymptomat ic off of medsCall office if any issues Cobalamin deficiency 190 912929 E53.8 On monthly B12 shots Lymphedema of lower extremity 733908027 I89.0 wears compressio n stockings Rosacea 682981588 L71.9 follows silvano Rodriguez in [facility] topical metronidaz ole from them Urinary symptoms 5058228 08 R39.9 check UA/culture Vaginitis 19289574 N76.0 start fluconazol ecall office if no improvemen t after meds Fracture o f neck of femur 2376869 S72.001D follows [facility]- Dr. Pettit ext appt in 2 weeksis d/c Eliquis next weeklast HH PT is tomorrow [id number] Melina graf MD [facility] Internal Med [place] [address] [place] [address] 07/17/2023 10:10:15 07/17/2023 10:50:36 Hyperlipidemia 38353765 E78.5 no meds, working on lifestyle measures Hypothyroidism 62666275 E03.9 On SynthroidU pdate labs Vitamin D deficiency 347 61775 E55.9 Could not tolerate weekly supplement Chronic ob structive pulmonary disease 57858744 J44.9 Asymptomat ic off of medsCall office if any issues Cobalamin deficiency 190 657515 E53.8 On monthly B12 shots Lymphedema of lower extremity 347151255 I89.0 wears compressio n stockings Rosacea 093282780 L71.9 follows silvano Rodriguez in [facility] topical metronidaz ole from them Fracture o f neck of femur 6024484 S72.001D follows [facility] Pett[facility] ext appt at the end of the monthis now done with PT [id number] Melina graf MD [facility] Internal Med [place] [address] [address] 10/11/2023 15:06:11 10/11/2023 15:38:56 Screening - NAD 335566952 Z13.9 C-scope/Ma mmogram/PA P: Not doing does wellDEXA: Has declined this Get yearly flu shot, get tdap, get shingrix vaccineGet COVID 19 vaccine and its boostersGe t RSV vaccine RTC in 3 months, do labs, ER if worse, she did verbalize her understand ing of the above Hyperlipidemia 15369675 E78.5 Get labs Vitamin D deficiency 347 31512 E55.9 Chronic ob structive pulmonary disease 70965230 J44.9 Does well, no referrals wanted by her Serum valarie min B12 below reference range 775956159 R79.89 Fracture o f neck of femur 2983550 S72.001A Dr Rosita Pacheco well now Rosacea 300900671 L71.9 Met[address] topicalDr Marielle Rodriguez dermatolog y Hypothyroidism 86669537 E03.9 On synthroid 50mcgs dailyGet labsRenewe d 10/11/2023 [id number] Melina graf MD [facility] [address] [address] 03/11/2024 13:58:27 03/11/2024 14:55:43 Adult health examination 616715449 Z00.00 Screening for disorder 021792863 Z13.9 Screening - NAD 75059672 3 Z13.9 C-scope/Ma mmogram/PA P: Not doing does wellDEXA: Has declined thisNo complaints at this time Get yearly flu shot, get tdap, get shingrix vaccineGet COVID 19 vaccine and its boostersGe t RSV vaccine RTC in 3 months, do labs, ER if worse, she did verbalize her understand ing of the above Hyperlipidemia 62754627 E78.5 Get labs Vitamin D deficiency 347 14783 E55.9 Can d/c the vit dSees Dr Angulo IJ Chronic ob structive pulmonary disease 70343698 J44.9 Does well, no referrals wanted by her Serum valarie min B12 below reference range 399693761 R79.89 Fracture o f neck of femur 0389544 S72.001A Dr Rosita Pacheco well now Rosacea 050231202 L71.9 Metronidaz ole topicalDr Marielle Rodriguez dermatolog y Hypothyroidism 50243811 E03.9 On synthroid 50mcgs dailyGet labsRenewe d 10/11/2023 Hypoproteinemia 3399570 E88.09 More protein in diet Chronic ki dney disease 433688616 N18.[address] Rodrigue BETH Anemia 229470037 D64.9 Dr Munoz/Kar ann Tomac: 02/29/2024 : F/u in 4 monthsOn iron po Acute urin marva tract infection 269477997 N39.0 UA 03/11/2024 : Negative Has noted some burning with urineStart on levaquin Edema of l ower extremity 875464001 R60.0 Will stop the vit d as she does feel that this occurs when she takes the weekly high doseAlso start on levaquin as she does have multiple antibiotic allergies [id number] Melina graf MD [facility] [address] [facility], [facility] [address] [place] [address] 06/10/2024 11:06:07 06/10/2024 11:49:25 Screening - NAD 951769674 Z13.9 C-scope/Ma mmogram/PA P: Not doing does wellDEXA: Has declined thisNo complaints at this time Get yearly flu shot, get tdap, get shingrix vaccineGet COVID 19 vaccine and its boostersGe t RSV vaccine RTC in 3 months, do labs, ER if worse, she did verbalize her understand ing of the above Hyperlipidemia 46177077 E78.5 Get labsMild TG elevated, more diet control, not on any meds Vitamin D deficiency 347 55067 E55.9 Can d/c the vit dSees Dr Rodrigue BETH Chronic ob structive pulmonary disease 12986934 J44.9 Does well, no referrals wanted by her Serum valarie min B12 below reference range 898377095 R79.89 Fracture o f neck of femur 0607747 S72.001A Dr Rosita Pacheco well now Rosacea 904103454 L71.9 Metronidaz ole topicalDr Marielle Rodriguez dermatolog y Hypothyroidism 57047583 E03.9 On synthroid 50mcgs dailyGet labsRenewe d 10/11/2023 Hypoproteinemia 2858840 E88.09 More protein in diet Chronic ki dney disease 425720433 N18.[address] Rodrigue BETH Anemia 177965709 D64.9 Dr Munoz/Kar ann Tomac: 02/29/2024 : F/u in 4 monthsOn iron po Administra tion of influenza vaccine 56697856 Z23 [id number] Melina graf MD [facility] [address] [place] [address] 09/09/2024 11:17:10 09/09/2024 12:20:00 Screening - NAD 125441165 Z13.9 C-scope/Ma mmogram/PA P: Not doing does wellDEXA: Has declined thisNo complaints at this time Get yearly flu shot, get tdap, get shingrix vaccineGet COVID 19 vaccine and its boostersGe t RSV vaccine RTC in 3 months, do labs, ER if worse, she and her daughter did verbalize her understand ing of the above Hyperlipidemia 30906288 E78.5 Get labsDiet control, not on any meds Vitamin D deficiency 347 71542 E55.9 Can d/c the vit dSees Dr Rodrigue BETH Chronic ob structive pulmonary disease 01369247 J44.9 Does well, no referrals wanted by her Serum valarie min B12 below reference range 677069272 R79.89 Fracture o f neck of femur 4899953 S72.001A Dr Rosita Armstrongs well now Rosacea 984326582 L71.9 Metronidaz ole topicalDr Marielle Rodriguez dermatolog y Hypothyroidism 07004374 E03.9 On synthroid 50mcgs dailyGet labsRenewe d 10/11/2023 Hypoproteinemia 2314676 E88.09 More protein in diet Chronic ki dney disease 342507997 N18.9 On vit dOn calcitriol Sees Dr Rodrigue BETH Anemia 328927860 D64.9 Dr Munoz/Kar ann Tomac: 02/29/2024 : F/u in 4 monthsOn iron po Pre-surger y evaluation 582123068 Z01.818 Surgery: L cataractSu rgeon: Dr Macias : 09/25/2024 Anesthesia : Local, IV sedationLa bs: Hilda avilae: Cleared for surgery pending EKG Essential hypertension 77681102 I10 On losartan 25m dailySees Dr Rodrigue BETH [id number] Melina graf MD [facility] [address] [facility], [place] [address] 12/09/2024 11:51:25 12/09/2024 12:30:16 Screening - NAD 453840001 Z13.9 C-scope/Ma mmogram/PA P: Not doing does wellDEXA: Has declined thisNo complaints at this time Get yearly flu shot, get tdap, get shingrix vaccineGet COVID 19 vaccine and its boostersGe t RSV vaccineCan do prevnar #20 RTC in 3 months, do labs, ER if worse, she did verbalize her understand ing of the above Hyperlipidemia 56218292 E78.5 Get labsDiet control, not on any meds Vitamin D deficiency 347 73400 E55.9 Can d/c the vit dSees Dr Rodrigue BETH Chronic ob structive pulmonary disease 92572416 J44.9 Does well, no referrals wanted by her Serum valarie min B12 below reference range 089314766 R79.89 Fracture o f neck of femur 5334396 S72.001A Dr Rosita SLAUGHTERoes well now Rosacea 992132013 L71.9 Metronidaz ole luz elenaDr Marielle Rodriguez dermatolog y Hypothyroidism 58864923 E03.9 On synthroid 50mcgs dailyGet labsRenewe d 10/11/2023 Hypoproteinemia 6761626 E88.09 More protein in diet Chronic ki dney disease 699153503 N18.9 On vit dOn calcitriol Sees Dr Rodrigue BETH Anemia 580010654 D64.9 Dr Munoz/Kar ann Tomac: 02/29/2024 : F/u in 4 monthsOn iron po Essential hypertension 22113932 I10 On losartan 25m dailySees Dr Rodrigue BETH Health Concerns Section Related Observation LastModified by Organization Detai ls LastModified Time None Recorded Concern Status LastModified by Organization Details LastModified Time None Recorded Advance Directives Directive Y: Payers Encounter Date Sequence Insurance Name Policy Number Policy Meeks Covered Member ID Meeks Member ID Guarantor Name 10/11/2023 1 [employer] (MEDICARE REPLACEMENT PPO) [id number] 1 Ally Dengpell [id number] Ally Vu Lili 03/11/2024 1 [employer] (MEDICARE REPLACEMENT PPO) [id number] 1 Ally Vu Lili [id number] Ally Vu Alma 06/10/2024 1 [employer] (MEDICARE REPLACEMENT PPO) [id number] 1 Ally Vu Alma [id number] Ally Vu Alma 09/09/2024 1 [employer] (MEDICARE REPLACEMENT PPO) [id number] 1 Ally Vu Alma [id number] Ally Vu Lili 12/09/2024 1 [employer] (MEDICARE REPLACEMENT PPO) [id number] 1 Ally Dengpell [id number] Ally Pearson Notes Date Note Type Note Provider Name and Address Organization Details Recorded Time 10/11/2023 text/html OV 10/11/2023:Here to establish care Past Hx:Hypothyroidsm RosaceaLow B12 Here to discuss above and get labs, she would like to get her synthroid refilled, does well Melina Sosa MD [address] [facility], [facility] [address], [place], [address], [employer] 10/11/2023 16:01:49 03/11/2024 text/html OV 10/11/2023:Here to establish care Past Hx:Hypothyroidsm RosaceaLow B12 Here to discuss above and get [...] Dr Tammy Sosa MD [address], [facility] [address], [place], [address], [employer] 03/24/2024 18:06:17 06/10/2024 text/html OV 10/11/2023:Here to establish care Past Hx:Hypothyroidsm RosaceaLow B12 Here to discuss above and get [...] done her labs Melina Sosa MD [address] [facility], [address], [place], [address], [facility] [employer] (formerly known as [employer] 06/27/2024 22:17:43 09/09/2024 text/html OV 10/11/2023:Here to establish care Past Hx:Hypothyroidsm RosaceaLow B12 Here to discuss above and get [...] L eye surgery Melina Sosa MD [address], [address], [place], [address], [facility] [employer] 09/09/2024 12:22:29 12/09/2024 text/html OV 10/11/2023:Here to establish care Past Hx:Hypothyroidsm RosaceaLow B12 Here to discuss above and get [...] for surgery clearance for L eye surgery OV 12/09/2024: Here for her f/u apt, she did see Dr Munoz and Dr Rodrigue BETH, she did do the labs Melina Sosa MD [address] [place] [address], [facility] [address], [place], [address], [place] [facility] 12/09/2024 12:29:04 OBGyn Episode No OBEpisode recorded.
--- OUTSIDE RECORDS SUMMARY | 2025-01-09 11:30 | XMS_ITS ---
Author Organization [facility] Address [address] [place] [address] Care Team Providers Care Security Operations Manager Name Role Phone Rodrigue Eric Unavailable [phone] Encounters Encounter Location Date Provider Diagnosis [facility] [place] [facility] [address] [place] [address] 10/14/2024 Eric Husain PLAN OF TREATMENT Next Appt Details Provider Name:Eric Husain , 04/08/2025 02:15:00 PM, [address] [facility], [facility] [address], [place], [address], Progress Notes * Ally PEARSONDOB: (84 yo F)Acc No.[id number]:10/14/2024 Patient: CAT Ally :1940 Age:84 Y Sex:Female Address:[address] [place] [address] * * Date:
--- OUTSIDE RECORDS SUMMARY | 2025-01-09 11:31 | XMS_ITS | Clinical Summary ---
Author Organization [facility] Ubaldo Cormier Address [address] [place] [address] Care Team Providers Care Ware Carrier Name Role Phone Melina Sosa MD Primary [...] Encounters Date Type Department Care Team Description 10/21/2024 External Device Data STL ABSTRACTION Provider, Abstract 10/13/2024 Telephone [facility] Oncology and Hematology - [place] [address] [place] [address] Cesar Munoz MD labs for appointment from Last 3 Months Family History Relation [...] Care Team (Late st Contact Info) Description 01/13/2025 3:30 PM CDT Office Visit [facility] Oncology and Hematology - [place] [address] [facility] [address] [place] [address] Cesar Munoz MD [address] [facility] [address] [place] [address] Health Maintenance Due Date Last Done Comments ZOSTER VACCINE (1 of 2) 1989 OSTEOPOROSIS SCREENING 2004 PNEUMOCOCCAL VACCINE 50+ YEA RS (2 of 2 - PPSV23) 09/11/2005 07/17/2005 RSV VACCINE (60+ or ) (1 - 1-dose 75+ series) 2014 INFLUENZA VACCINE (#1) 2024 3, 06/14/2022, 06/29/2021, Additional history exists Medicare Advantage (LISSA) Preventative Visit/Annual Wellness Visit 09/03/2024 DTAP/TDAP/TD VACCINES (3 - T d or Tdap) 01/02/2026 01/03/2016, 08/13/2013 Insurance AETNA PPO MCR Care Teams Ware Carrier Relationship Specialty Start Date End Date Melina Sosa MD PCP - General Internal Medicine 11/20/23
--- OUTSIDE RECORDS SUMMARY | 2025-01-09 11:31 | XMS_ITS | Encounter Summary ---
Author Organization [facility] Address [address] [facility] [place] [address] Care Team Providers Care Energy Derivatives Trader Name Role Phone Gaviota Edmonds MD Primary Care Provider [phone] Encounter Details Date Type Department Care Team (Late st Contact Info) Description 04/19/2020 Lab Requisition [facility] [address] [facility], [place] [id number] Marielle Rodriguez DO [address] [facility] 3 [place] [address] Social History Tobacco Use Types Packs/Day Years Used Date Smoking Tobacco: Never Smokeless Tobacco: Never Alcohol Use Standard Drinks/Week Comments No 0 (1 standard drink = 0.6 oz pur e alcohol) Comments Unknown Sex and Gender Information Value Date Recorded Sex Assigned at Not on file 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 Gender Identity Not on file Sexual Orientation Not on file documented as of this encounter Plan of Treatment Not on file documented as of this encounter Procedures Procedure Name Priority Date/Time Associated Diagnosis Comments DERMATOPATHOLOGY Routine 04/15/2020 12:0 0 AM CDT documented in this encounter Results * DERMATOPATHOLOGY (04/15/2020 12:00 AM CDT) Case Report Dermatopathology Report Case: [id number] Authorizing Provider: Marielle Rodriguez DO Collected: 04/15/2020 12:00 AM Ordering Location: [facility] Received: 04/19/2020 10:30 AM Pathologist: Horace Salcedo MD Specimens: A) - Skin, right upper arm B) - Skin, left elbow 0 12:00 PM [facility] Final Diagnosis Specimen A. SKIN, right upper arm: ACTINIC KERATOSIS, LICHENOID (L57.0) Specimen B. SKIN, left elbow: BENIGN VERRUCOUS KERATOSIS, INFLAMED (L82.1) 0 12:00 PM [facility] Clinical History A-B: R/O NMSC. 0 12:00 PM T DERMATOPATHOLOGY LABORATORY Gross Description Specimen A: Received is one formalin filled container labeled with the patient's name and designated right upper arm. The specimen consists of a shave measuring [id number]. Jar 0. Specimen B: Received is one formalin filled container labeled with the patient's name and designated left elbow. The specimen consists of a shave measuring [id number]. Jar 0. 0 12:00 PM [facility] Microscopic Description Specimen A. SKIN, [...] or a seborrheic keratosis. 0 12:00 PM [facility] Disclaimer An external and internal positive and negative controls are appropriate for the histochemical, immunohistochemical and immunofluorescence stain(s) in this case (if any), except where stated explicitly. The performance characteristics of the stain(s) cited in this report were developed and its performance characteristic determined by the Dermatopathology Laboratory at [facility], directed by Dr. Brice Salcedo. These tests need not be, and therefore are not, approved by the [place] Food and Drug Administration. The tests are used for clinical purposes. Billing Codes Specimen Charges Stain Charges 58275 65366 1 1 0 12:00 PM T DERMATOPATHOLOGY LABORATORY Embedded Images 0 12:00 PM T DERMATOPATHOLOGY LABORATORY Pathology/Cytology TISSUE SPECIMEN FROM SKIN / Unknown 04/15/2020 04/19/2020 10:30 AM CDT Miscellaneous samples (specimen) TISSUE SPECIMEN FROM SKIN / Unknown 04/15/2020 04/19/2020 10:30 AM CDT us Marielle Rodriguze DO LAB - PATHOLOGY/CYTOLOGY ORDERABLES Final Result DERMATOPATHOLOGY LABORATORY [facility] - Department of Dermatology Special Delivery Clerk Center/[address] [phone] documented in this encounter Visit Diagnoses Not on filedocumented in this encounter Care Teams Energy Derivatives Trader Relationship Specialty Start Date End Date Gaviota Edmonds MD [address] [place] [phone] PCP - General 07/14/13 documented as of this encounter
--- OUTSIDE RECORDS SUMMARY | 2025-01-09 11:31 | XMS_ITS | Clinical Summary ---
Author Organization [facility] Address [address] [place] [address] Care Team Providers Care Certified Pathology Assistant Name Role Phone Gaviota Edmonds MD Primary Care Provider [phone] Source Comments [facility],non-owned Affiliates and Associated Physician Practices is amultiple site organization consisting of ambulatory clinics and hospital sitesin [place], [place], [place] and [place]. This disclosure is being madepursuant to the Care Everywhere program and may not contain all information available regarding this patient. Last updated 18.[facility] [employer] Allergies Active Allergy Reactions Criticality Noted Date Comments Amoxicillin Rash Medium 07/14/2013 Cephalexin Rash Medium 07/14/2013 Erythromycin Rash Medium 07/14/2013 Oxytetracycline Rash Medium 07/14/2013 Penicillins Rash Medium 02/12/2023 Medications * Be aware that medications may not be up to date on this document. Alwaysverify current medications with the patient. levothyroxine (Synthroid) 50 MCG tablet Take 1 (one) tablet by mouth daily before breakfast Active acetaminophen-c odeine (Tylenol #2) 300-15 MG tablet Take 1 (one) tablet by mouth every 4 hours as needed for Pain 28 tablet 3 Active acetaminophen-c odeine (Tylenol #2) 300-15 MG tablet Take 1 (one) tablet by mouth every 6 hours as needed for Pain 35 tablet 3 Active Active Problems Problem Noted Date Diagnosed [...] Relation Name Comments None Known Father Status: mihai Heart Disease Mother Status: Aurora ed Relation [...] Recorded Patient Health Questionnaire-2 Score 0 08/02/2023 [facility] of Occupat ional Health - Occupational Stress [...] place to sleep or slept in a skilled nursing (including now)? 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 Gender Identity Not on file Sexual Orientation [...] 61.2 kg (135 lb) 08/02/2023 8:52 AM TRANSPORTATION DISPATCHER Height 162.6 cm (5' 4 ) 05/03/2023 [...] 1-dose 75+ series) 2014 COVID-19 VACCINE ( season) 2024 08/03/2021, 11/24/2020, 10/27/2020 DEPRESSION SCREENING 09/03/2024 08/02/2023 MEDICARE AWV CALENDAR YEAR 2024 INFLUENZA VACCINE (Season Ended) 2025 06/14/2022, 06/29/2021, 08/03/2020, Additional history exists HEPATITIS B VACCINE Aged Out No longe r eligible based on patient's age to complete this topic HIB VACCINE Aged Out No longer eligi ble based on patient's age to complete this topic HPV VACCINE Aged Out No longer eligi ble based on patient's age to complete this topic MENINGOCOCCAL (Group B) VACCINE SHARED DECISION-MAKING Aged Out No longer eligible based on patient's age to complete this topic MENINGOCOCCAL GROUPS A/C/Y/W VACCINE Aged Out No longer eligible based on patient's age to complete this topic Medical Devices Implanted Type Area Orthodontic Laboratory Technician Device Identifier Shelf Expiration Date Model / Serial / Lot Hip Stem- Standard Offset Implanted:Qty: 1 on 02/13/2023 by Tommy Becker MD at [facility] 11/12/2027 [id number] / / [id number] [employer] [place] Head Bipolar Component Implanted:Qty: 1 on 02/13/2023 by Tommy Becker MD at [facility] [id number] / / [id number] Head Fem +0mm Ofst Tpr 28mm Hip Blx D Implanted:Qty: 1 on 02/13/[facility] [id number] / / [id number] Insurance [facility] MANAGED MEDICARE ADV AETNA MEDICARE ADV Advance Directives * Full Code (Latest Code Status on File) Date Activated Date Inactivated Comments 02/12/2023 3:43 PM 02/15/2023 7:44 PM Care Teams Certified Pathology Assistant Relationship Specialty Start Date End Date Gaviota Edmonds MD [address] [place] [address] [address] [place] [phone] PCP - General 07/14/13
--- OUTSIDE RECORDS SUMMARY | 2025-01-09 11:31 | XMS_ITS | CONTINUITY OF CARE DOCUMENT ---
Author Name andrew morales Address Unknown Organization [facility] Address [address] [facility] [address] [place] [address] Phone [phone] Care Team Providers Care Blasting Cap Assembler Name Role Phone Bony Husain MD Unavailable [phone] HOUSTON MARTIN MD Unavailable PROBLEMS Condition Status Date Provider Notes Cardiology examination active Isaac Ahmedzai Abnormal EKG--echo ef nl, 10/2024 active Ri az Ahmedzai Hypertension active Isaac Ahmedzai CKD active Isaac Ahmedzai Hypothyroidism active Isaac Ahmedzai ENCOUNTERS Date Type Provider Location Encounter Diag nosis - In-person encounter Office Visit Bony Husain MD [place] [facility] Abnormal EKG--echo ef nl, 10/2024 - In-person encounter Office Visit Bony Husain MD [place] [facility] Cardiology examinationHypothyroidismCKDAbnormal EKG--echo ef nl, 10/2024Hypertension VITAL SIGNS Date Observation Value Provider Body Mass Index (Ratio) 23.03 kg/m2 Arun Husain MD blood pressure, diastolic 81 mm[Hg] Eduin Magallanes blood pressure, systolic 133 mm[Hg] Arlyn Magallanes pulse rate 86 /min Gabriela molina oxygen saturation, oximetry 98 % Gabriela Magallanes blood pressure, cuff size regular Eduin Magallanes weight E&M 130 [lb_av] Gabriela molina height E&M 63 [in_i] Gabriela molina Body Mass Index (Ratio) 24.27 kg/m2 Arun Husain MD blood pressure, cuff size regular Ke rri Grueolimpia blood pressure, diastolic 86 mm[Hg] Ke rri Nely blood pressure, systolic 162 mm[Hg] Mellisa ri Nely oxygen saturation, oximetry 99 % Anaid Nely pulse rate 67 /min Anaid Marion lder weight E&M 137 [lb_av] Anaid Marion lder height E&M 63 [in_i] Anaid Marion lder ALLERGIES Allergy Name Onset Date Reaction Criticality [...] Payer name Policy type / Coverage type [employer] red green party ID AETNA MEDICARE LAILA PPO Medicare [id number] ADVANCE DIRECTIVES Name Date DISCUSSED - NO DECISION MADE TREATMENT PLAN Date Name Performer Cardiology: H er updated medication list for this problem includes: Synthroid 50 Mcg Tablet (Levothyroxine) ..... Take 1 tablet by mouth once daily Bony Husain MD Cardiology Bony Husain MD Cardiology:This visi t has been a part of the consistent, comprehensive, and ongoing management of the chronic medical condition(s) listed above for the patient. BP today: 133/81 P rior BP: 162/86 (09/22/2024) Her updated medication list for this problem includes: Losartan 25 Mg Tablet (Losartan) ..... Take 1 tablet by mouth once a day Bony Husain MD Cardiology Bony Husain MD Cardiology:This visi t has been a part [...] MD Cardiology: O rders: C omplete Echo (04156) Bony Husain MD Date Name Complete Echo HISTORY OF PROCEDURES Procedure Date Procedure Name Provider Procedure Notes S tatus Complex e/m visit add on Bony Husain MD completed Complex e/m visit add on Bony Husain MD completed EKG Bony Husain MD completed
[2025-01-09 11:44] LABS: Hematocrit 32.9 % (37.0-47.0); Hemoglobin 10.6 g/dL (12.0-15.0); Mean Corpuscular HGB Conc 32.2 g/dl (32-36); Mean Corpuscular Hemoglobin 31.3 pg (26-34); Mean Corpuscular Volume 97.1 fl (80-100); Mean Platelet Volume 9.4 fl (7.4-10.4); Platelet Count Result 203 k/mm3 (150-375); Red Blood Count 3.39 M/mm3 (4.2-5.4); Red Cell Distribution Width 14.4 % (11.5-14.5); White Blood Count 6.4 K/mm3 (4.5-10.0)
[2025-01-09 13:39] LABS: Iron 84 ug/dL (37-170)
[2025-01-09 13:42] LABS: Anion Gap 5 mmol/L (4-12); Blood Urea Nitrogen 15 mg/dL (7-17); Calcium 8.6 mg/dL (8.4-10.2); Carbon Dioxide 25 mmol/L (22-30); Chloride 113 mmol/L (98-107); Estimated Glomerular Filt Rate 53; Glucose 81 mg/dL (65-110); Potassium 3.5 mmol/L (3.4-5.0); Sodium 143 mmol/L (137-145)
[2025-01-09 13:51] LABS: Percent Iron Saturation 29 % (20-50)
[2025-01-09 14:46] LABS: Folic Acid > 20.0 ng/mL (2.76->20)
== END 2025-01-09 11:28 | disposition home or self-care (01) ==
LOC: ANHLAB 11:28
PROVIDERS: PCP Internal Medicine; Visit Provider Internal Medicine Hematology & Oncology
DX: D64.9 Anemia, unspecified (principal)
CPT/HCPCS: 36415; 80048; 82607; 82728; 82746; 83540; 83550; 85027

== ENCOUNTER 2025-08-25 12:02 | Outpatient (CLI) | payer MEDICARE, SELFPAY ==
--- OUTSIDE RECORDS SUMMARY | 2024-03-14 08:00 | XMS_ITS ---
Author Organization [facility] Office Address [address] [facility] 61 [facility] [address] [place] [address] Care Team Providers Care Director Orange Name Role Phone Atif Husainjit Unavailable [phone] Encounters Encounter Location Date Provider Diagnosis [place] [facility] [address] [facility] [address] [place] [address] 03/14/2024 Eric Husain Chronic kidney disea se, stage 3a N18.31 ; Essential (primary) hypertension I10 ; Edema, unspecified R60.9 ; Gout, unspecified M10.9 ; Other proteinuria R80.8 and Renal osteodystrophy N25.0 Assessments Encounter Date Diagnosis (ICD Code) Assessment Notes Treatment Notes Treatment Clinical Notes Section Notes 03/14/2024 Chronic kidney disease, stage 3a (ICD-10 - N18.31) 03/14/2024 Essential (primary) hypertension (ICD-10 - I10) 03/14/2024 Edema, unspecified (ICD-10 - R60.9) 03/14/2024 Gout, unspecified (ICD-10 - M10.9) 03/14/2024 Other proteinuria (ICD-10 - R80.8) 03/14/2024 Renal osteodystrophy (ICD-10 - N25.0) Plan Of Treatment Next Appt Details Provider Name:Eric Husain , 10/14/2025 02:30:00 PM, [address] [facility], [address], [place], [address], Progress Notes * Ally SHELTONDOB: 9 (85 yo F)Acc No.[id number]:03/14/2024 Progress Notes Patient: Ally HOBBS Provider: Ishmael MARQUIS MD, F.A.C.P, F.A.S.N. :1940 A ge:83 Y S ex:Female Date:03/14/2024 Address:[address] [place] [address] Subjective: * Chief Complaints: * * Medical History: Objective: * Vitals: Assessment: * Assessment: 1. C hronic kidney disease, stage 3a - N18.31 (Primary) 2 . E ssential (primary) hypertension - I10 3 . E claudette, unspecified - R60.9 4 .?Gout, unspecified - M10.9 5 . O ther proteinuria - R80.8 6 .?Renal osteodystrophy - N25.0 Plan: * Treatment: * Billing Information: * Visit Code: 80135 Office Visit, Est Pt., Level 4. * Procedure Codes: * Electronic signature of James Husain MD on 08/25/2025 at 12:10 PM MANAGER SOLUTION Sign off status: Pending * Provider: Ishmael MARQUIS MD, F.A.C.P, F.A.S.N. Date: 0 03/14/2024 Generated for Printing/Faxing/eTransmitting on: 1 10/26/2024 12:10 PM MANAGER SOLUTION
--- OUTSIDE RECORDS SUMMARY | 2024-05-30 07:45 | XMS_ITS ---
Author Organization [facility] Address 1400 [facility] 61 [facility] [address] [place] [address] Care Team Providers Care Tech Ed Teacher Name Role Phone Atif Husainjit Unavailable [phone] Encounters Encounter Location Date Provider Diagnosis [place] [facility] [address] [facility] [address] [place] [address] 05/30/2024 Eric Husain Chronic kidney disea se, stage 3a N18.31 ; Essential (primary) hypertension I10 ; Edema, unspecified R60.9 ; Gout, unspecified M10.9 ; Other proteinuria R80.8 and Renal osteodystrophy N25.0 Assessments Encounter Date Diagnosis (ICD Code) Assessment Notes Treatment Notes Treatment Clinical Notes Section Notes 05/30/2024 Chronic kidney disease, stage 3a (ICD-10 - N18.31) 05/30/2024 Essential (primary) hypertension (ICD-10 - I10) 05/30/2024 Edema, unspecified (ICD-10 - R60.9) 05/30/2024 Gout, unspecified (ICD-10 - M10.9) 05/30/2024 Other proteinuria (ICD-10 - R80.8) 05/30/2024 Renal osteodystrophy (ICD-10 - N25.0) Plan Of Treatment Next Appt Details Provider Name:Eric Husain , 10/14/2025 02:30:00 PM, [address] [facility], [address], [place], [address], Progress Notes * Ally SHELTONDOB: [birth year] (85 yo F)Acc No.[id number]:05/30/2024 Progress Notes Patient: Ally HOBBS Provider: Ishmael MARQUIS MD, F.A.C.P, F.A.S.N. :1940 A ge:83 Y S ex:Female Date:05/30/2024 Address:[address] [place] [address] Subjective: * Chief Complaints: * * Medical [...] Treatment: * Billing Information: * Visit Code: 23623 Office Visit, Est Pt., Level 4. * Procedure Codes: * Electronic signature of James Husain MD on 08/25/2025 at 12:10 PM STAFF RESPIRATORY THERAPIST Sign off status: Pending * Provider: Ishmael MARQUIS MD, F.A.C.P, F.A.S.N. Date: 0 05/30/2024 Generated for Printing/Faxing/eTransmitting on: 1 10/26/2024 12:10 PM STAFF RESPIRATORY THERAPIST
--- OUTSIDE RECORDS SUMMARY | 2024-08-06 10:00 | XMS_ITS ---
Author Organization [facility] Address 1400 [facility] 61 [facility] [address] [place] [address] Care Team Providers Care Counter Manager Name Role Phone Atif Husainjit Unavailable [phone] Encounters Encounter Location Date Provider Diagnosis [place] [facility] 2043 [facility] [address] [place] [address] 08/06/2024 Eric Husain Chronic kidney disea se, stage 3b N18.32 ; Essential (primary) hypertension I10 ; Edema, unspecified R60.9 ; Gout, unspecified M10.9 ; Other proteinuria R80.8 and Renal osteodystrophy N25.0 Assessments Encounter Date Diagnosis (ICD Code) Assessment Notes Treatment Notes Treatment Clinical Notes Section Notes 08/06/2024 Chronic kidney disease, stage 3b (ICD-10 - N18.32) 08/06/2024 Essential (primary) hypertension (ICD-10 - I10) 08/06/2024 Edema, unspecified (ICD-10 - R60.9) 08/06/2024 Gout, unspecified (ICD-10 - M10.9) 08/06/2024 Other proteinuria (ICD-10 - R80.8) 08/06/2024 Renal osteodystrophy (ICD-10 - N25.0) Plan Of Treatment Next Appt Details Provider Name:Eric Husain , 10/14/2025 02:30:00 PM, [address] [facility], [address], [place], [address], Progress Notes * Ally SHELTONDOB: [birth year] (85 yo F)Acc No.[id number]:08/06/2024 Progress Notes Patient: Ally HOBBS Provider: Ishmael MARQUIS MD, F.A.C.P, F.A.S.N. :1940 A ge:84 Y S ex:Female Date:08/06/2024 Address:[address] [place] [address] Subjective: * Chief Complaints: * * Medical History: Objective: * Vitals: Assessment: * Assessment: 1. C hronic kidney disease, stage 3b - N18.32 2 . E ssential (primary) hypertension - I10 3 . E claudette, unspecified - R60.9 4 . G out, unspecified - M10.9 5 . O ther proteinuria - R80.8 6 . R enal osteodystrophy - N25.0 Plan: * Treatment: * Billing Information: * Visit Code: 79030 Office Visit, Est Pt., Level 4. * Procedure Codes: * Electronic signature of James Husain MD on 08/25/2025 at 12:09 PM MAGNET PLACER Sign off status: Pending * Provider: Ishmael MARQUIS MD, F.A.C.P, F.A.S.N. Date: 10/07/2023 Generated for Printing/Faxing/eTransmitting on: 10/26/2024 12:09 PM MAGNET PLACER
--- OUTSIDE RECORDS SUMMARY | 2024-10-08 10:00 | XMS_ITS ---
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) Active confirmed Problem Osteoporosis (24214691) Other osteoporosis without current pathological fracture (M81.8) Active confirmed Encounters Encounter Location Date Provider Diagnosis [place] [facility] 2043 [facility] 15 [place] [address] 10/08/2024 Eric Husain Chronic kidney disease, stage 3a N18.31 ; Primary generalized (osteo)arthritis M15.0 ; Congenital stenosis and stricture of esophagus Q39.3 ; Abnormal radiologic findings on diagnostic imaging of unspecified kidney R93.429 and Other osteoporosis without current pathological fracture M81.8 Assessments Encounter Date Diagnosis (ICD Code) Assessment Notes Treatment Notes Treatment Clinical Notes Section Notes 10/08/2024 Chronic kidney disease, stage 3a (ICD-10 - N18.31) 10/08/2024 Primary generalized (osteo)arthritis (ICD-10 - M15.0) 10/08/2024 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) 10/08/2024 Abnormal radiologic findings on diagnostic imaging of unspecified kidney (ICD-10 - R93.429) 10/08/2024 Other osteoporosis without current pathological fracture (ICD-10 - M81.8) Plan Of Treatment Next Appt Details Provider Name:Eric Husain , 10/14/2025 02:30:00 PM, 2043 [facility], [address], [place], [address], Progress Notes * Susan PEARSON:[birth year] (85 yo F)Acc No.[id number]:10/08/2024 Progress Notes Patient: Ally HOBBS Provider: Ishmael MARQUIS MD, F.A.C.P, F.A.S.N. :1940 A ge:84 Y S ex:Female Date:10/08/2024 Address:[address] [place] [address] Subjective: * Chief Complaints: * * Medical History: Objective: * Vitals: Assessment: * Assessment: 1. C hronic kidney disease, stage 3a - N18.31 (Primary) 2 . P rimary generalized (osteo)arthritis - M15.0 3 . C ongenital stenosis and stricture of esophagus - Q39.3 4 . A bnormal radiologic findings on diagnostic imaging of unspecified kidney - R93.429 5 . O ther osteoporosis without current pathological fracture - M81.8 Plan: * Treatment: * Billing Information: * Visit Code: 92601 Office Visit, Est Pt., Level 4. * Procedure Codes: * Electronic signature of James Husain MD on 08/25/2025 at 12:10 PM RAIL DETECTOR CAR OPERATOR Sign off status: Pending * Provider: Ishmael MARQUIS MD, F.A.C.P, F.A.S.N. Date: 0 10/08/2024 Generated for Printing/Faxing/eTransmitting on: 1 10/26/2024 12:10 PM RAIL DETECTOR CAR OPERATOR
--- OUTSIDE RECORDS SUMMARY | 2024-12-03 09:30 | XMS_ITS ---
Author Organization [facility] Address [address] [place] [address] Care Team Providers Care Vertica Architect Name Role Phone Eric Husain Unavailable [phone] Problems Problem Type SNOMED Code ICD Code Onset Dates Problem Status W/U Status Risk Notes Problem Diabetic renal disease (817999534) Type 2 diabetes mellitus with diabetic chronic kidney disease (E11.22) Active confirmed Problem Vitamin D deficiency (99973662) Vitamin D deficiency, unspecified (E55.9) Active confirmed Problem Overactive bladder (088277420) Overactive bladder (N32.81) Active confirmed Encounters Encounter Location Date Provider Diagnosis [place] [facility] [address] [facility] [address] [place] [address] 12/03/2024 Eric Husain Chronic kidney disea se, stage 3a N18.31 ; Essential (primary) hypertension I10 ; Type 2 diabetes mellitus with diabetic chronic kidney disease E11.22 ; Edema, unspecified R60.9 ; Gout, unspecified M10.9 ; Other proteinuria R80.8 ; Renal osteodystrophy N25.0 ; Primary generalized (osteo)arthritis M15.0 ; Congenital stenosis and stricture of esophagus Q39.3 ; Other osteoporosis without current pathological fracture M81.8 ; Vitamin D deficiency, unspecified E55.9 and Overactive bladder N32.81 Assessments Encounter Date Diagnosis (ICD Code) Assessment Notes Treatment Notes Treatment Clinical Notes Section Notes 12/03/2024 Chronic kidney disease, stage 3a (ICD-10 - N18.31) 12/03/2024 Essential (primary) hypertension (ICD-10 - I10) 12/03/2024 Type 2 diabetes mellitus with diabetic chronic kidney disease (ICD-10 - E11.22) 12/03/2024 Edema, unspecified (ICD-10 - R60.9) 12/03/2024 Gout, unspecified (ICD-10 - M10.9) 12/03/2024 Other proteinuria (ICD-10 - R80.8) 12/03/2024 Renal osteodystrophy (ICD-10 - N25.0) 12/03/2024 Primary generalized (osteo)arthritis (ICD-10 - M15.0) 12/03/2024 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) 12/03/2024 Other osteoporosis without current pathological fracture (ICD-10 - M81.8) 12/03/2024 Vitamin D deficiency, unspecified (ICD-10 - E55.9) 12/03/2024 Overactive bladder (ICD-10 - N32.81) Plan Of Treatment Next Appt Details Provider Name:Eric Husain , 10/14/2025 02:30:00 PM, [address] [facility] [address], [place], [address], Progress Notes * Ally PEARSONDOB: [birth year] (85 yo F)Acc No.[id number]:12/03/2024 Progress Notes Patient: Ally HOBBS Provider: Ishmael MARQUIS MD, F.A.C.P, F.A.S.N. :1940 A ge:84 Y S ex:Female Date:12/03/2024 Address:[address] [place] [address] Subjective: * Chief Complaints: * * Medical History: Objective: * Vitals: Assessment: * Assessment: 1. C hronic kidney disease, stage 3a - N18.31 (Primary) 2 . E ssential (primary) hypertension - I10 3 . 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 E claudette, unspecified - R60.9 5 . G out, unspecified - M10.9 6 . O ther proteinuria - R80.8 7 . R enal osteodystrophy - N25.0 8 . P rimary generalized (osteo)arthritis - M15.0? 9. C ongenital stenosis and stricture of esophagus - Q39.3 1 0. Other osteoporosis without current pathological fracture - M81.8 1 1. V itamin D deficiency, unspecified - E55.9 1 2. O veractive bladder - N32.81 ? Plan: * Treatment: * Billing Information: * Visit Code: 68213 Office Visit, Est Pt., Level 4. * Procedure Codes: * Electronic signature of James Husain MD on 08/25/2025 at 12:09 PM WATER PLANT OPERATOR Sign off status: Pending * Provider: Ishmael MARQUIS MD, F.A.C.P, F.A.S.N. Date: 0 12/03/2024 Generated for Printing/Faxing/eTransmitting on: 10/26/2024 12:09 PM WATER PLANT OPERATOR
--- OUTSIDE RECORDS SUMMARY | 2025-04-08 08:15 | XMS_ITS ---
Author Organization [facility] Address [address] [place] [address] Care Team Providers Care Design Coordinator Name Role Phone Eric Husain Unavailable [phone] Problems Problem Type SNOMED Code ICD Code Onset Dates Problem Status W/U Status Risk Notes Problem Malignant neoplasm of corpus uteri, excluding isthmus (501948761) Malignant neoplasm of corpus uteri, unspecified (C54.9) Active confirmed Encounters Encounter Location Date Provider Diagnosis [place] [facility] [address] [facility] [address] [place] [address] 04/08/2025 Eric Husain Chronic kidney disea se, stage [...] M81.8 ; Vitamin D deficiency, unspecified E55.9 ; Overactive bladder N32.81 ; Malignant neoplasm of corpus uteri, unspecified C54.9 and Abnormal radiologic findings on diagnostic imaging of unspecified kidney R93.429 Assessments Encounter Date Diagnosis (ICD Code) Assessment Notes Treatment Notes Treatment Clinical Notes Section Notes 04/08/2025 Chronic kidney disease, stage 3a (ICD-10 - N18.31) 04/08/2025 Essential (primary) hypertension (ICD-10 - I10) 04/08/2025 Type 2 diabetes mellitus with diabetic chronic kidney disease (ICD-10 - E11.22) 04/08/2025 Edema, unspecified (ICD-10 - R60.9) 04/08/2025 Gout, unspecified (ICD-10 - M10.9) 04/08/2025 Other proteinuria (ICD-10 - R80.8) 04/08/2025 Renal osteodystrophy (ICD-10 - N25.0) 04/08/2025 Primary generalized (osteo)arthritis (ICD-10 - M15.0) 04/08/2025 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) 04/08/2025 Other osteoporosis without current pathological fracture (ICD-10 - M81.8) 04/08/2025 Vitamin D deficiency, unspecified (ICD-10 - E55.9) 04/08/2025 Overactive bladder (ICD-10 - N32.81) 04/08/2025 Malignant neoplasm of corpus uteri, unspecified (ICD-10 - C54.9) 04/08/2025 Abnormal radiologic findings on diagnostic imaging of unspecified kidney (ICD-10 - R93.429) Plan Of Treatment Next Appt Details Provider Name:Eric Rodrigue , 10/14/2025 02:30:00 PM, [address], [address], Progress Notes * Ally SHELTONDOB: [birth year] (85 yo F)Acc No.[id number]:04/08/2025 Progress Notes Patient: Ally HOBBS Provider: Ishmael MARQUIS MD, F.A.C.P, F.A.S.N. :1940 A ge:84 Y S ex:Female Date:04/08/2025 Address:[address] [place], [place] [id number] Subjective: * Chief Complaints: * * Medical [...] 2. O veractive bladder - N32.81 ? 1 3. M alignant neoplasm of corpus uteri, unspecified - C54.9 1 4. A bnormal radiologic findings on diagnostic imaging of unspecified kidney - R93.429 Plan: * Treatment: * Billing Information: * Visit Code: 99920 Office Visit, Est Pt., Level 4. * Procedure Codes: * Electronic signature of James Husain MD on 08/25/2025 at 12:09 PM MUSIC ADAPTER Sign off status: Pending * Provider: Ishmael MARQUIS MD, F.A.C.P, F.A.S.N. Date: 0 04/08/2025 Generated for Printing/Faxing/eTransmitting on: 10/26/2024 12:09 PM MUSIC ADAPTER
--- OUTSIDE RECORDS SUMMARY | 2025-06-10 12:45 | XMS_ITS ---
Author Organization [facility] Address [address] [facility] [address] [facility] [address] [place] [address] Care Team Providers Care Scuba Diving Teacher Name Role Phone Rodrigue Eric Unavailable [phone] Encounters Encounter Location Date Provider Diagnosis [place] [facility] [address] [facility] [address] [place] [address] 06/10/2025 Eric Husain Plan Of Treatment Next Appt Details Provider Name:Eric Rodrigue , 10/14/2025 02:30:00 PM, [address] [facility], [facility] [address], [place], [address], Progress Notes * Ally PEARSONDOB: [birth year] (85 yo F)Acc No.[id number]:06/10/2025 Progress Notes Patient: Ally HOBBS Provider: Ishmael MARQUIS MD, Laureen.Travis.C.P, F.A.S.N. :1940 A ge:84 Y S ex:Female Date:06/10/2025 Address:[address] [place] [address] Subjective: * Chief Complaints: Objective: Assessment: Plan: * Billing Information: * Visit Code: * Procedure Codes: * Electronic signature of James Husain MD on 08/25/2025 at 12:09 PM METAL RIVETER Sign off status: Pending * Provider: Ishmael MARQUIS MD, Laureen.Travis.C.P, F.A.S.N. Date: Generated for Printing/Faxing/eTransmitting on: 10/26/2024 12:09 PM METAL RIVETER
--- OUTSIDE RECORDS SUMMARY | 2025-07-08 13:30 | XMS_ITS ---
Author Organization [facility] Address [address] [facility] [address] [facility] [address] [place] [address] Care Team Providers Care Store Sales Consultant Name Role Phone Rodrigue Eric Unavailable [phone] Encounters Encounter Location Date Provider Diagnosis [place] [facility] [address] [facility] [address] [place] [address] 07/08/2025 Eric Husain Plan Of Treatment Next Appt Details Provider Name:Eric Rodrigue , 10/14/2025 02:30:00 PM, [address] [facility], [facility] [address], [place], [address], Progress Notes * Ally PEARSONDOB: [birth year] (85 yo F)Acc No.[id number]:07/08/2025 Progress Notes Patient: Ally HOBBS Provider: Ishmael MARQUIS MD, Laureen.Travis.C.P, F.A.S.N. :1940 A ge:84 Y S ex:Female Date:07/08/2025 Address:[address] [place] [address] Subjective: * Chief Complaints: Objective: Assessment: Plan: * Billing Information: * Visit Code: * Procedure Codes: * Electronic signature of James Husain MD on 08/25/2025 at 12:09 PM EARTH MOVING TECHNICIAN Sign off status: Pending * Provider: Ishmael MARQUIS MD, Laureen.Travis.C.P, F.A.S.N. Date: 09/07/2024 Generated for Printing/Faxing/eTransmitting on: 10/26/2024 12:09 PM EARTH MOVING TECHNICIAN
--- OUTSIDE RECORDS SUMMARY | 2025-07-15 13:00 | XMS_ITS ---
Author Organization [facility] Address [address] [facility] [address] [facility] [address] [place] [address] Care Team Providers Care Export Documents Clerk Name Role Phone Rodrigue Eric Unavailable [phone] Encounters Encounter Location Date Provider Diagnosis [place] [facility] [address] [facility] [address] [place] [address] 07/15/2025 Eric Husain Plan Of Treatment Next Appt Details Provider Name:Eric Rodrigue , 10/14/2025 02:30:00 PM, [address] [facility], [facility] [address], [place], [address], Progress Notes * Ally PEARSONDOB: [birth year] (85 yo F)Acc No.[id number]:07/15/2025 Progress Notes Patient: Ally HOBBS Provider: Ishmael MARQUIS MD, Laureen.Travis.C.P, F.A.S.N. :1940 A ge:84 Y S ex:Female Date:07/15/2025 Address:[address] [place] [address] Subjective: * Chief Complaints: Objective: Assessment: Plan: * Billing Information: * Visit Code: * Procedure Codes: * Electronic signature of James Husain MD on 08/25/2025 at 12:09 PM PIANO ASSEMBLER Sign off status: Pending * Provider: Ishmael MARQUIS MD, Laureen.Travis.C.P, F.A.S.N. Date: 09/14/2024 Generated for Printing/Faxing/eTransmitting on: 10/26/2024 12:09 PM PIANO ASSEMBLER
--- OUTSIDE RECORDS SUMMARY | 2025-08-12 09:00 | XMS_ITS ---
Author Organization [facility] Address [address] [place] [address] Care Team Providers Care Commercial Energy Rater Name Role Phone Eric Husain Unavailable [phone] Problems Problem Type SNOMED Code ICD Code Onset Dates Problem Status W/U Status Risk Notes Problem Anemia (303428492) Anemia, unspe cified (D64.9) Active confirmed Problem Secondary hyperparathyroidism of renal origin (26544870) Secondary hyperparathyroidism of renal origin (N25.81) Active confirmed Encounters Encounter Location Date Provider Diagnosis [place] [facility] [address] [facility] 15 [place] [address] 08/12/2025 Eric Husain Chronic kidney disea se, stage [...] Malignant neoplasm of corpus uteri, unspecified C54.9 ; Anemia, unspecified D64.9 and Secondary hyperparathyroidism of renal origin N25.81 Assessments Encounter Date Diagnosis (ICD Code) Assessment Notes Treatment Notes Treatment Clinical Notes Section Notes 08/12/2025 Chronic kidney disea se, stage 3a (ICD-10 - N18.31) 08/12/2025 Essential (primary) hypertension (ICD-10 - I10) 08/12/2025 Type 2 diabetes mellitus with diabetic chronic kidney disease (ICD-10 - E11.22) 08/12/2025 Edema, unspecified (ICD-10 - R60.9) 08/12/2025 Gout, unspecified (ICD-10 - M10.9) 08/12/2025 Other proteinuria (ICD-10 - R80.8) 08/12/2025 Renal osteodystrophy (ICD-10 - N25.0) 08/12/2025 Primary generalized (osteo)arthritis (ICD-10 - M15.0) 08/12/2025 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) 08/12/2025 Other osteoporosis without current pathological fracture (ICD-10 - M81.8) 08/12/2025 Vitamin D deficiency , unspecified (ICD-10 - E55.9) 08/12/2025 Overactive bladder (ICD-10 - N32.81) 08/12/2025 Malignant neoplasm o f corpus uteri, unspecified (ICD-10 - C54.9) 08/12/2025 Anemia, unspecified (ICD-10 - D64.9) 08/12/2025 Secondary hyperparathyroidism of renal origin (ICD-10 - N25.81) Plan Of Treatment Next Appt Details Provider Name:Eric Husain , 10/14/2025 02:30:00 PM, [address], [address], Progress Notes * Ally PEARSONDOB: [birth year] (85 yo F)Acc No.[id number]:08/12/2025 Progress Notes Patient: Ally HOBBS Provider: Ishmael MARQUIS MD, F.A.C.P, F.A.S.N. :1940 A ge:85 Y S ex:Female Date:08/12/2025 Address:[address] [place] [address] Subjective: * Chief Complaints: Objective: Assessment: * Assessment: 1. C hronic kidney [...] uteri, unspecified - C54.9 1 4. A nemia, unspecified - D64.9 1 5. S econdary hyperparathyroidism of renal origin - N25.81 Plan: * Billing Information: * Visit Code: 11211 Office Visit, Est Pt., Level 4. * Procedure Codes: * Electronic signature of James Husain MD on 08/25/2025 at 12:10 PM GLOBAL PRODUCT MANAGER Sign off status: Pending * Provider: Ishmael MARQUIS MD, F.A.C.P, F.A.S.N. Date: 10/13/2024 Generated for Printing/Faxing/eTransmitting on: 10/26/2024 12:10 PM GLOBAL PRODUCT MANAGER
--- OUTSIDE RECORDS SUMMARY | 2025-08-25 12:09 | XMS_ITS | Encounter Summary ---
Author Organization [facility] Address [address] [place] [place] [address] Care Team Providers Care Retail Operations Specialist Name Role Phone Gaviota Edmonds MD Primary Care Provider [phone] Encounter Details Date Type Department Care Team (Late st Contact Info) Description 04/19/2020 Lab Requisition [facility] D[facility] [address] [facility] [place] [phone] Marielle Rodriguez DO [address] [facility] [address] [place] [address] Social History Tobacco Use Types Packs/Day Years Used Date Smoking Tobacco: Never Smokeless Tobacco: Never Alcohol Use Standard Drinks/Week Comments No 0 (1 standard drink = 0.6 oz pur e alcohol) Comments Unknown Sex and Gender Information Value Date Recorded Sex Assigned at Not on file Legal Sex Female 6:40 PM METAL 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 OPERATOR Gender Identity Not on file Sexual Orientation Not on file documented as of this encounter Plan of Treatment Not on file documented as of this encounter Procedures Procedure Name Priority Date/Time Associated Diagnosis Comments DERMATOPATHOLOGY Routine 04/15/2020 12:0 0 AM CDT documented in this encounter Results * DERMATOPATHOLOGY (04/15/2020 12:00 AM CDT) Case Report Dermatopathology Report Case: [id number] Authorizing Provider: Marielle Rodriguez DO Collected: 04/15/2020 12:00 AM Ordering Location: [facility] Received: 04/19/2020 10:30 AM Pathologist: Horace Salcedo MD Specimens: A) - Skin, right upper arm B) - Skin, left elbow 0 12:00 PM T DERMATOPATHOLOGY LABORATORY Final Diagnosis Specimen A. SKIN, right upper arm: ACTINIC KERATOSIS, LICHENOID (L57.0) Specimen B. SKIN, left elbow: BENIGN VERRUCOUS KERATOSIS, INFLAMED (L82.1) 0 12:00 PM T DERMATOPATHOLOGY LABORATORY at 1200 CDT Clinical History A-B: R/O NMSC. 0 12:00 PM CDT DERMATOPATHOLOGY LABORATORY Gross Description Specimen A: Received is one formalin filled container labeled with the patient's name and designated right upper arm. The specimen consists of a shave measuring [id number]. Jar 0. Specimen B: Received is one formalin filled container labeled with the patient's name and designated left elbow. The specimen consists of a shave measuring 90i3m8hi. Jar 0. 0 12:00 PM CDT DERMATOPATHOLOGY LABORATORY Microscopic Description Specimen A. SKIN, [...] characteristic determined by the Dermatopathology Laboratory at [facility], directed by Dr. Brice Salcedo. These tests need not be, and therefore are not, approved by the [place] Food and Drug Administration. The tests are used for clinical purposes. Billing Codes Specimen Charges Stain Charges 76646 06564 1 1 0 12:00 PM CDT DERMATOPATHOLOGY LABORATORY Embedded Images 0 12:00 PM CDT DERMATOPATHOLOGY LABORATORY Pathology/Cytology TISSUE SPECIMEN FROM SKIN / Unknown 04/15/2020 04/19/2020 10:30 AM CDT Miscellaneous samples (specimen) TISSUE SPECIMEN FROM SKIN / Unknown 04/15/2020 04/19/2020 10:30 AM CDT us Marielle Rodriguez DO LAB - PATHOLOGY/CYTOLOGY ORDERABLES Final Result DERMATOPATHOLOGY LABORATORY [facility] - Department of Dermatology [facility]/[address] [phone] documented in this encounter Visit Diagnoses Not on filedocumented in this encounter Care Teams Retail Operations Specialist Relationship Specialty Start Date End Date Gaviota Edmonds MD [address] [place] [phone] PCP - General 07/14/13 documented as of this encounter
--- OUTSIDE RECORDS SUMMARY | 2025-08-25 12:10 | XMS_ITS | Clinical Summary ---
Author Organization [facility] Address [address] [place] [address] [place] [address] Care Team Providers Care Rn Outpatient Surgery Name Role Phone Melina Sosa MD Primary Care Provider Allergies Active Allergy Reactions Criticality Noted Date Comments Cephalexin Rash Medium 07/14/2013 Erythromycin Rash Medium 07/14/2013 Oxytetracycline Rash Medium 07/14/2013 Penicillins Rash Medium 07/14/2013 Medications levothyroxine 50 mcg tablet Take 50 mcg by mouth daily before breakfast. Active ferrous sulfate 325 mg (65 mg [...] Instructions route see administration instructions. 4 Active calcitRIOL (ROCALTROL) 0.25 mcg capsule Take 0.25 mcg by mouth daily. Active losartan (COZAAR) 25 mg tablet Take 25 mg by mouth daily. Active ergocalciferol (VITAMIN D2) 50,000 unit capsule Take 50,000 Units by mouth daily. Active Active Problems No known active problems Encounters Date Type Department Care Team Description 06/23/2025 External Device Data STL ABSTRACTION Provider, Abstract [...] Sign Reading Time Taken Comments Blood Pressure 112/63 01/13/2025 3:25 PM CDT Pulse 82 01/13/2025 3:25 PM CDT Temperature 36.8 C (98.3 F) 01/13/2025 3:25 PM CDT Respiratory Rate 15 01/13/2025 3:2 5 PM CDT Oxygen Saturation 97% 01/13/2025 3:25 PM CDT Inhaled Oxygen Concentration - - Weight 59.8 kg (131 lb 12.8 oz) 01/13/2025 3:25 PM CDT Height 165.1 cm (5' 5) 11/21/2023 11:2 9 AM CDT Body Mass Index 21.93 11/21/2023 11:29 AM CDT Plan of Treatment Upcoming Encounters Date Type Department Care Team (Late st Contact Info) Description 10/02/2025 10:45 AM CELL OPERATION SUPERVISOR Office Visit [facility] Oncology and Hematology [facility] [address] [facility] [address] [place] [address] Cesar Munoz MD [address] [facility] [address] [place] [address] Health Maintenance Due Date Last Done Comments DIABETES ANNUAL FOOT EXAM 1957 DIABETES ANNUAL RETINAL EXAM 1957 DIABETES HBA1C Q 6 MONTHS 1957 DIABETES MICROALBUMIN ANNUAL SCREEN 1957 LDL CHOLESTEROL ANNUAL 1957 OSTEOPOROSIS SCREENING 2004 PNEUMOCOCCAL VACCINE 50+ YEA RS (2 of 2 - PPSV23, PCV20, or PCV21) 09/11/2005 07/17/2005 RSV VACCINE (60+ or ) (1 - 1-dose 75+ series) 2014 [place] Preventative Visit/Annual Wellness Visit 09/03/2024 03/11/2024 INFLUENZA VACCINE (#1) 2025 , 07/12/2023, 06/14/2022, Additional history exists COVID-19 Vaccine (5 - 2024-2 6 season) 2025 05/05/2024, 08/03/2021, 11/24/2020, Additional history exists DTAP/TDAP/TD VACCINES (4 - T d or Tdap) 07/22/2034 07/22/2024, 01/03/2016, 08/13/2013 ZOSTER VACCINE Completed 01/06/2024, 11/06/2023 Insurance [employer] PPO MCR Care Teams Rn Outpatient Surgery Relationship Specialty Start Date End Date Melina Sosa MD PCP - General Internal Medicine 11/20/23
--- OUTSIDE RECORDS SUMMARY | 2025-08-25 12:10 | XMS_ITS | Patient Health Record ---
Author Organization [facility] Address [address] [place] [address] Care Team Providers Care Store Custodian Name Role Phone Eric Husain Unavailable [phone] Reason For Referral No Information Medications Medication SIG (Take, Route, Frequency, Duration) Notes Start Date End Date Status Calcitriol 0.25 MCG TAKE 1 CAPSULE BY [place] UTH EVERY DAY FOR 90 DAYS; Duration: 90 Active Losartan Potassium 25 MG TAKE 1 TABLET B Y MOUTH EVERY DAY FOR 90 DAYS; Duration: 90 Active Vitamin D (Ergocalciferol) 1.25 MG (36911 UT) TAKE 1 CAPSULE BY MOUTH TWICE WEEKLY FOR 90 DAYS; Duration: 90 Active Problems Problem Type SNOMED Code ICD Code Onset Dates Problem Status W/U Status Risk Notes Problem Malignant neoplasm o f corpus uteri, excluding isthmus (383134781) Malignant neoplasm of corpus uteri, unspecified (C54.9) Active confirmed Problem Anemia (040601902) Anemia, unspe cified (D64.9) Active confirmed Problem 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) Type 2 diabetes mellitus with diabetic chronic kidney disease (E11.22) Active confirmed Problem Vitamin D deficiency (14813333) Vitamin D deficiency, unspecified (E55.9) Active confirmed Problem Essential hypertension (41727593) Essential (primary) hypertension (I10) Active confirmed Problem Gout (18831891) Gout, unspecifie d (M10.9) Active confirmed Problem Primary generalised osteoarthritis (489675227) 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) Active confirmed Problem Osteoporosis (73745373) Other osteoporosis without current pathological fracture (M81.8) Active confirmed Problem Renal osteodystrophy (48545796) Renal osteodystrophy (N25.0) Active confirmed Problem Secondary hyperparathyroidism of renal origin (95517813) Secondary hyperparathyroidism of renal origin (N25.81) Active confirmed Problem Overactive bladder (026638250) Overactive bladder (N32.81) Active confirmed Problem 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) Active confirmed Problem Edema (61720998) Edema, unspecif ied (R60.9) Active confirmed Problem Proteinuria (69927160) Other proteinuria (R80.8) Active confirmed Problem Chronic kidney disease stage 3A (disorder) (814859576) Chronic kidney disease, stage 3a (N18.31) Active confirmed Encounters Encounter Location Date Provider Diagnosis [facility] [address] [address] 10/08/2024 Eric Husain Chronic kidney disea se, stage 3a N18.31 ; Primary generalized (osteo)arthritis M15.0 ; Congenital stenosis and stricture of esophagus Q39.3 ; Abnormal radiologic findings on diagnostic imaging of unspecified kidney R93.429 and Other osteoporosis without current pathological fracture M81.8 [facility] [address] [address] 12/03/2024 Eric Husain Chronic kidney disea se, [...] deficiency, unspecified E55.9 and Overactive bladder N32.81 [facility] [address] [address] 04/08/2025 Eric Husain Chronic kidney disea se, [...] on diagnostic imaging of unspecified kidney R93.429 [facility] [address] [facility] [address] [place] [address] 08/12/2025 Eric Husain Chronic kidney disea se, [...] and Secondary hyperparathyroidism of renal origin N25.81 [facility] [address] [facility] [address] [place] [address] 10/08/2024 Eric Husain [facility] [address] [place] [address] 10/14/2024 Eric Husain [facility] [address] [address] 10/14/2024 Eric Husain Assessments Encounter Date Diagnosis (ICD Code) Assessment Notes Treatment Notes Treatment Clinical Notes Section Notes 10/08/2024 Primary generalized (osteo)arthritis (ICD-10 - M15.0) 10/08/2024 Chronic kidney disea se, stage 3a (ICD-10 - N18.31) 12/03/2024 Chronic kidney disea se, stage 3a (ICD-10 - N18.31) 04/08/2025 Essential (primary) hypertension (ICD-10 - I10) 04/08/2025 Chronic kidney disea se, stage 3a (ICD-10 - N18.31) 08/12/2025 Chronic kidney disea se, stage 3a (ICD-10 - N18.31) 08/12/2025 Essential (primary) hypertension (ICD-10 - I10) 04/08/2025 Type 2 diabetes mellitus with diabetic chronic kidney disease (ICD-10 - E11.22) 10/08/2024 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) 12/03/2024 Essential (primary) hypertension (ICD-10 - I10) 10/08/2024 Abnormal radiologic findings on diagnostic imaging of unspecified kidney (ICD-10 - R93.429) 12/03/2024 Type 2 diabetes mellitus with diabetic chronic kidney disease (ICD-10 - E11.22) 04/08/2025 Edema, unspecified (ICD-10 - R60.9) 08/12/2025 Type 2 diabetes mellitus with diabetic chronic kidney disease (ICD-10 - E11.22) 08/12/2025 Edema, unspecified (ICD-10 - R60.9) 12/03/2024 Edema, unspecified (ICD-10 - R60.9) 04/08/2025 Gout, unspecified (ICD-10 - M10.9) 10/08/2024 Other osteoporosis without current pathological fracture (ICD-10 - M81.8) 12/03/2024 Gout, unspecified (ICD-10 - M10.9) 04/08/2025 Other proteinuria (ICD-10 - R80.8) 08/12/2025 Gout, unspecified (ICD-10 - M10.9) 08/12/2025 Other proteinuria (ICD-10 - R80.8) 04/08/2025 Renal osteodystrophy (ICD-10 - N25.0) 12/03/2024 Other proteinuria (ICD-10 - R80.8) 12/03/2024 Renal osteodystrophy (ICD-10 - N25.0) 04/08/2025 Primary generalized (osteo)arthritis (ICD-10 - M15.0) 08/12/2025 Renal osteodystrophy (ICD-10 - N25.0) 08/12/2025 Primary generalized (osteo)arthritis (ICD-10 - M15.0) 04/08/2025 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) 12/03/2024 Primary generalized (osteo)arthritis (ICD-10 - M15.0) 12/03/2024 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) 04/08/2025 Other osteoporosis without current pathological fracture (ICD-10 - M81.8) 08/12/2025 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) 08/12/2025 Other osteoporosis without current pathological fracture (ICD-10 - M81.8) 04/08/2025 Vitamin D deficiency , unspecified (ICD-10 - E55.9) 12/03/2024 Other osteoporosis without current pathological fracture (ICD-10 - M81.8) 12/03/2024 Vitamin D deficiency , unspecified (ICD-10 - E55.9) 04/08/2025 Overactive bladder (ICD-10 - N32.81) 08/12/2025 Vitamin D deficiency , unspecified (ICD-10 - E55.9) 08/12/2025 Overactive bladder (ICD-10 - N32.81) 04/08/2025 Malignant neoplasm o f corpus uteri, unspecified (ICD-10 - C54.9) 12/03/2024 Overactive bladder (ICD-10 - N32.81) 04/08/2025 Abnormal radiologic findings on diagnostic imaging of unspecified kidney (ICD-10 - R93.429) 08/12/2025 Malignant neoplasm o f corpus uteri, unspecified (ICD-10 - C54.9) 08/12/2025 Anemia, unspecified (ICD-10 - D64.9) 08/12/2025 Secondary hyperparathyroidism of renal origin (ICD-10 - N25.81) Plan Of Treatment Next Appt Details Provider Name:Eric Husain , 10/14/2025 02:30:00 PM, [address], [facility] [address], [place], [address],
--- OUTSIDE RECORDS SUMMARY | 2025-08-25 12:10 | XMS_ITS | Clinical Summary ---
Author Organization [facility] Address [address] [facility] [place] [address] Care Team Providers Care Retail Warehouse Associate Name Role Phone Gaviota Edmonds MD Primary Care Provider [phone] Source Comments [facility],non-owned Affiliates and Associated Physician Practices is amultiple site organization consisting of ambulatory clinics and hospital sitesin [place], [place], [place] and [place]. This disclosure is being madepursuant to the Care Everywhere program and may not contain all information available regarding this patient. Last updated 18.[facility] [place] Allergies Active Allergy Reactions Criticality Noted Date [...] Recorded Patient Health Questionnaire-2 Score 0 08/02/2023 [facility] [place] [facility] Occupat ional Health - Occupational Stress [...] place to sleep or slept in a mcc (including now)? No 02/13/2023 Comments No Sex and Gender Information Value Date Recorded Sex Assigned at Not on file Legal Sex Female 6:40 PM MEDICARE COORDINATOR Gender Identity Not on file Sexual Orientation [...] 61.2 kg (135 lb) 08/02/2023 8:52 AM MEDICARE COORDINATOR Height 162.6 cm (5' 4) 05/03/2023 9:04 AM CDT Body Mass Index 23.17 05/03/2023 9:04 AM CDT Plan of Treatment Health Maintenance Due Date Last Done Comments BONE DENSITY TESTING 1939 DTAP/TDAP/TD VACCINES (1 - Tdap) 1958 PNEUMOCOCCAL VACCINE 50+ (1 of 1 - PCV) 1989 ZOSTER VACCINE (1 of 2) 1989 Respiratory Syncytial Virus (RSV) Vaccine Pt: or over 60 yrs (1 - 1-dose 75+ series) 2014 DEPRESSION SCREENING 09/03/2024 08/02/2023 MEDICARE AWV CALENDAR YEAR 2024 COVID-19 VACCINE ( - 2024- season) 2025 08/03/2021, 11/24/2020, 10/27/2020 INFLUENZA VACCINE (#1) 2025 2, 06/29/2021, 08/03/2020, Additional history exists HEPATITIS B [...] this topic Medical Devices Implanted Type Area Customer Service Advisor Device Identifier Shelf Expiration Date Model / Serial / Lot Hip Stem- Standard Offset Implanted:Qty: 1 on 02/13/2023 by Tommy Becker MD at [facility] 11/12/2027 [id number] / / [id number] [employer] [place] Head Bipolar Component Implanted:Qty: 1 on 02/13/2023 by Tommy Becker MD at [facility] [id number] / / [id number] Head Fem +0mm Ofst Tpr 28mm Hip Blx D Implanted:Qty: 1 [facility] [employer] [id number] / / [id number] Insurance [facility] MANAGED MEDICARE ADV AETNA MEDICARE ADV Advance Directives * Full Code (Latest Code Status on File) Date Activated Date Inactivated Comments 02/12/2023 3:43 PM 02/15/2023 7:44 PM Care Teams Retail Warehouse Associate Relationship Specialty Start Date End Date Gaviota Edmonds MD [address] [place] [address] [address] [place] [phone] PCP - General 07/14/13
--- OUTSIDE RECORDS SUMMARY | 2025-08-25 12:10 | XMS_ITS | Data Portability ---
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 Name Role Phone DB ANGULO Sum[employer] Server MELINA SOSA Primary Care Provider [phone] OPAL LOPEZ Hematology/Oncology Assessment Encounter Date Assessment [...] H/H 11.2/35.2 09/05/2024: H/H 10.9/33.8 TP 5.7L [place] Not available 09/09/2024 11:52:20 12/09/2024 12/09/2024 10/31/2023: VIT D 25.5 H/H 10.8/33.8 11/16/2023: BUN 20, GFR 53, TP 5.4L, Glob 2.2L 02/21/2024: Dr Rodrigue Wright 136, GFR 57 A1C 5.3 H/H 11.1/33.4 VIT D 30.2 06/03/2024: TG 154 H/H 11.2/35.2 09/05/2024: H/H 10.9/33.8 TP 5.7L 10/10/2024: Dr Munoz BUN/Cr./GFR 20/1.02/52 H/H 11.1/35.1 11/28/2024: Dr Rodrigue BETH TP 5.5L [place] Not available 12/09/2024 12:22:53 04/28/2025 04/28/2025 10/31/2023: VIT D 25.5 H/H 10.8/33.8 11/16/2023: BUN 20, GFR 53, TP 5.4L, Glob 2.2L 02/21/2024: Dr Rodrigue Wright 136, GFR 57 A1C 5.3 H/H 11.1/33.4 VIT D 30.2 06/03/2024: TG 154 H/H 11.2/35.2 09/05/2024: H/H 10.9/33.8 TP 5.7L 10/10/2024: Dr Munoz BUN/Cr./GFR 20/1.02/52 H/H 11.1/35.1 11/28/2024: Dr Rodrigue BETH TP 5.5L 04/27/2025: GFR 50, TP 5.5 H/H 10.9/33.9 Not available 04/28/2025 09:15:48 Plan of Treatment Reminders Order Date Submit Date Provider Last Modified By Organization Details Last Modified Time Details Appointments Any 15 2025 10:00A M Melina mckay MD Not available Not available Not available Lab vitamin D, 25-hydrox y, total, serum [address] [facility] (Lab), [address] [place], [address], 04/28/2025 17:03:58 lipid panel, serum [address] [facility] (Lab), [address] [place], [address], 04/28/2025 17:03:58 CBC w/ auto diff [address] [facility] (Lab), [address] [place], [address], 04/28/2025 17:03:59 CMP, serum or plasma [address] [facility] (Lab), [address] [place], [address], 04/28/2025 17:03:59 TSH, serum or plasma [address] [facility] (Lab), [address] [place], [address], 04/28/2025 17:03:58 vitamin B12 + folate, serum or blood [address] [facility] (Lab), [address] [place], [address], 04/28/2025 17:03:58 vitamin D, 25-hydrox y, total, serum 04/07/ 2025 04/08/2 025 [facility] (Lab), [address] [place], [address], 01/09/2025 16:46:20 lipid panel, serum 2024 025 [facility] (Lab), [address] [place], [address], 04/27/2025 15:50:22 CBC w/ auto diff 2024 025 [facility] (Lab), [address] [place], [address], 04/27/2025 14:40:50 CMP, serum or plasma 2024 025 [facility] (Lab), [address] [place], [address], 04/27/2025 15:50:33 TSH, serum or plasma 2024 025 [facility] (Lab), [address] [place], [address], 04/27/2025 16:11:17 vitamin B12 + folate, serum or blood [address] (Lab), [address] [place], [address], 06/08/2025 15:13:37 vitamin D, 25-hydrox y, total, serum [address] [facility] (Lab), [address] [place], [address], 03/10/2025 08:21:48 lipid panel, serum [address] (Lab), [address] [place], [address], 03/10/2025 08:21:48 CBC w/ auto diff [address] (Lab), [address] [place], [address], 03/10/2025 08:21:48 CMP, serum or plasma [address] (Lab), [address] [place], [address], 03/10/2025 08:21:48 TSH, serum or plasma [address] (Lab), [address] [place], [address], 03/10/2025 08:21:48 vitamin B12 + folate, serum or blood [address] (Lab), [address] [place], [address], 03/10/2025 08:21:48 vitamin D, 25-hydrox y, total, serum [address] (Lab), [address] [place], [address], 12/09/2024 08:28:40 lipid panel, serum [address] (Lab), [address] [place], [address], 12/09/2024 08:28:40 CBC w/ auto diff [address] (Lab), [address] [place], [address], 12/09/2024 08:28:41 CMP, serum or plasma [address] (Lab), [address] [place], [address], 12/09/2024 08:28:41 TSH, serum or plasma [address] (Lab), [address] [place], [address], 12/09/2024 08:28:41 vitamin B12 + folate, serum or blood [address] (Lab), [address] [place], [address], 12/09/2024 08:28:41 urinalysi s, dipstick 2023 024 [email or web address] [facility] [address], [place], [address], 03/25/2024 09:57:58 lipid panel, serum 2023 024 [facility] (Lab), [address] [place], [address], 06/03/2024 21:52:01 CBC w/ auto diff 2023 024 [facility] (Lab), [address] [place], [address], 06/03/2024 17:28:58 CMP, serum or plasma 2023 024 [facility] (Lab), [address] [place], [address], 06/03/2024 21:52:06 TSH, serum or plasma 2023 024 [facility] (Lab), [address] [place], [address], 06/03/2024 21:58:21 vitamin D, 25-hydrox y, total, serum 2023 024 [email or web address] [facility] (Lab), [address] [place], [address], 09/11/2024 08:49:49 vitamin B12 + folate, serum or blood [email or web address] [place] [address] (Lab), [address] [place], [address], 09/11/2024 08:49:49 Referral nephrolog ist referral 2023 025 jamel Angulo MD (Nephrology, [address], [address], [place], [address], 09/09/2024 12:29:42 hematolog ist referral 2023 025 jamel Munoz MD, [address], [place], [address], 09/09/2024 12:29:43 nephrolog ist referral 2023 024 jamel Angulo MD (Nephrology, [address], [address], [place], [address], 06/10/2024 12:34:23 hematolog ist referral 2023 024 jamel Munoz MD, [address], [place], [address], 06/10/2024 12:34:24 nephrolog ist referral 2023 024 [email or web address] Angulo MD (Nephrology, [address], [address], [place], [address], 09/11/2024 08:50:59 Procedures None recorded. Surgeries None recorded. Imaging None recorded. Medication Orders levofloxa jeimy 750 mg tablet [address] [id number], [address] , [place], [address], 06/10/2024 11:17:02 Patient Targets Encounter Date Encounter Id Patient Goals Patient Target Last Modified By Organization Details Last Modified Time 04/28/2025 [id number] exercise , testing , Vaccines, urinary / bladder issues. diet Not available 04/28/2025 11:13:47 Patient Instructions Encounter Date Encounter Id Patient Instructions Last Modified By Organization Details Last Modified Time 03/11/2024 [id number] dementia rating scale-2* Not available 03/11/2024 14:48:41 alcohol misuse* [email or web address] Not available 03/11/2024 14:49:00 depression screening* Not available 03/11/2024 14:49:21 multi-dimensiona l health assessment questionnaire* [email or web address] Not available 03/11/2024 14:48:25 Personalized [facility] lt Plan and Screening Recommendations Advance Directives [...] time to no more than 5hr/day Nutrition: Average Refer to attached handout Heart-Healthy Diet: After Your Visit Fall Risk (screened today): Intermediate Refer to attached handout Preventing Falls: After your Visit Vaccines Pneumococcal: Recommended today Influenza: Your next one in the fall of this year Chronic Disease Risks Stroke: Intermediate Risk Follow Heart Healthy / DASH diet/ exercise regularly Heart Attack: Intermediate Risk Follow Heart Healthy / DASH diet/ exercise regularly Clogging of the Arteries: Intermediate Risk Follow Heart Healthy / DASH diet/ exercise regularly Diabetes: Low Risk I have no recommendations Secondary Prevention/Interven tion (detects treatable diseases before they may cause symptoms, disability, or ) Breast Cancer Screening with mammogram: Recommended today, but you have declined Cervical/Uterine/Ov silvana Cancer Screening: No screening necessary Osteoporosis Screening: Recommended today, but you have declined Colon Cancer Screening: Declined by patient Colonoscopy / Cologard Eye Disease Screening: Recommended today Dementia Risk: Intermediate I have no recommendations Depression Screening: Negative [email or web address] Not available 03/11/2024 14:52:02 04/28/2025 [id number] dementia rating scale-2* [email or web address] Not available 06/17/2025 18:18:41 multi-dimensiona l health assessment questionnaire* [email or web address] 2 Not available 04/28/2025 11:18:37 care plan* giuliawala 2 Not available 04/28/2025 11:18:37 advance directiv es: care instructions giuliawala 2 Not available 04/28/2025 11:18:38 advance care planning: care instructions giuliawala 2 Not available 04/28/2025 11:18:37 [place] Advance Directives giuliawala 2 Not available 04/28/2025 11:18:37 Personalized Hea lth Plan and Screening Recommendations Advance Directives - Do you have one? Yes You have indicated that you are capable of preparing your advance care directive Advance Directives - Do we have your advance directive on file in your health record? No, please bring in a copy at your earliest convenience Primary Prevention/Interven tion (prevents or decreases the chance of common diseases from occurring) Smoking Risk: Non Smoker Alcohol Misuse Screening: Negative Weight: Appropriate Physical activity: Need more exercise/physical activity Nutrition: Average Fall Risk (screened today): Low Vaccines Pneumococcal: No further needed Influenza: Recommended today Chronic Disease Risks Stroke: Intermediate Risk Active diagnosis, Continue current treatment plan Heart Attack: Intermediate Risk Active diagnosis, Continue current treatment plan Clogging of the Arteries: Active diagnosis, Continue current treatment plan Diabetes: Active diagnosis, Continue current treatment plan Secondary Prevention/Interven tion (detects treatable diseases before they may cause symptoms, disability, or ) Breast Cancer Screening with mammogram: Recommended today, but you have declined Cervical/Uterine/Ov silvana Cancer Screening: Recommended today, but you have declined Osteoporosis Screening: Recommended today, but you have declined Date Screening Last Performed: Colon Cancer Screening: No screening necessary Patient declined Date Screening Last Performed: Eye Disease Screening: Your next exam in: Dementia Risk: Low Depression Screening: Negative Active diagnosis, Continue current treatment plan Not available 04/28/2025 11:14:09 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 Referring Physician: Melina Sosa Internal [facility], Encounter Date: 03/11/2024 Summons Server 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 Referring Physician: Melina Sosa Internal Medicine, Encounter Date: 06/10/2024 Referring Physician: Melina Sosa Internal [facility], Encounter Date: 06/10/2024 Summons Server 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 Internal [facility] [address] [facility], [place], [address], 03/11/2024 14:58:59 03/11/20 24 03/11/2024 urina lysis , dipst ick Nitrite (reference rage: negative mg/dl) negati ve Not Available [facility] [address] [facility], [place], [address], 03/11/2024 14:58:59 03/11/20 24 03/11/2024 urina lysis , dipst ick Urobilinogen (reference range: 0.2-1 mg/dl) 0.2 Not Available [facility] [address] [facility], [place], [address], 03/11/2024 14:58:59 03/11/20 24 03/11/2024 urina lysis , dipst ick Protein (reference range: negative mg/dl) Negati ve Not Available [facility] Internal [facility] [address], [place], [address], 03/11/2024 14:58:59 03/11/20 24 03/11/2024 urina lysis , dipst ick pH (reference range: 5-7) 6.0 Not Available [facility] Internal [facility] [address], [place], [address], 03/11/2024 14:58:59 03/11/20 24 03/11/2024 urina lysis , dipst ick Blood (reference range: negative Shaun/ l) Negati ve Not Available [facility] Internal [facility] [address], [place], [address], 03/11/2024 14:58:59 03/11/20 24 03/11/2024 urina lysis , dipst ick Specific Colver (reference range: 1.005-1.030) 1.010 Not Available [facility] Internal [facility] [address], [place], [address], 03/11/2024 14:58:59 03/11/20 24 03/11/2024 urina lysis , dipst ick Ketone (reference range: negative mg/dl) Negati ve Not Available [facility] Internal [facility] [address], [place], [address], 03/11/2024 14:58:59 03/11/20 24 03/11/2024 urina lysis , dipst ick Bilirubin (reference range: negative mg/dl) Negati ve Not Available [facility] Internal [facility] [address], [place], [address], 03/11/2024 14:58:59 03/11/20 24 03/11/2024 urina lysis , dipst ick Glucose (reference range: negative mg/dl) Negati ve Not Available [facility] Internal Med [facility] [address], [place], [address], 03/11/2024 14:58:59 03/11/20 24 03/11/2024 urina lysis , dipst ick Appearance Clear Not Available [facility] Internal Med [facility] [address], [place], [address], 03/11/2024 14:58:59 03/11/20 24 03/11/2024 urina lysis , dipst ick Color Pale Yellow Not Available [facility] Internal [facility] [address] [facility], [place], [address], 03/11/2024 14:58:59 06/03/20 24 06/03/2024 CBC/C OMPLE TE BLD COUNT W/DIF F white blood cells 5.7 x10'3 /uL 4.2-10 .8 Not Available [facility] (Lab) [address] [place], [address], 06/03/2024 17:28:58 06/03/2006/03/2024 CBC/C OMPLE TE BLD COUNT W/DIF F red blood cells 3.64 x10'6 /uL 3.80-5 .20 low Not Available [facility] (Lab) [address] [place], [address], 06/03/2024 17:28:58 06/03/2006/03/2024 CBC/C OMPLE TE BLD COUNT W/DIF F hemoglobin 11.2 g/dL 12.0-1 5.6 low Not Available [facility] (Lab) [address] [place], [address], 06/03/2024 17:28:58 06/03/2006/03/2024 CBC/C OMPLE TE BLD COUNT W/DIF F hematocrit 35.2 % 35.7-4 5.7 low Not Available [facility] (Lab) [address] [place], [address], 06/03/2024 17:28:58 06/03/2006/03/2024 CBC/C OMPLE TE BLD COUNT W/DIF F mean red cell volume 96.7 fL 82.0-9 9.0 Not Available [facility] (Lab) [address] [place], [address], 06/03/2024 17:28:58 06/03/2006/03/2024 CBC/C OMPLE TE BLD COUNT W/DIF F mean red cell hemoglobin 30.8 pg 27.0-3 3.0 Not Available [facility] (Lab) [address] [place], [address], 06/03/2024 17:28:58 06/03/2006/03/2024 CBC/C OMPLE TE BLD COUNT W/DIF F mean RBC HGB concentratio n 31.8 g/dL 31.0-3 6.0 Not Available [facility] (Lab) [address] [place], [address], 06/03/2024 17:28:58 06/03/2006/03/2024 CBC/C OMPLE TE BLD COUNT W/DIF F red cell distribution width 13.7 % 11.8-1 5.5 Not Available [facility] (Lab) [address] [place], [address], 06/03/2024 17:28:58 06/03/2006/03/2024 CBC/C OMPLE TE BLD COUNT W/DIF F platelets 236 x10'3 /uL 150-40 0 Not Available [facility] (Lab) [address] [place], [address], 06/03/2024 17:28:58 06/03/2006/03/2024 CBC/C OMPLE TE BLD COUNT W/DIF F mean platelet volume 10.5 fL 9.0-12 .4 Not Available [facility] (Lab) [address] [place], [address], 06/03/2024 17:28:58 06/03/2006/03/2024 CBC/C OMPLE TE BLD COUNT W/DIF F neutrophils 54.4 % 39.0-7 2.0 Not Available [facility] (Lab) [address] [place], [address], 06/03/2024 17:28:58 06/03/2006/03/2024 CBC/C OMPLE TE BLD COUNT W/DIF F lymphocytes 36.1 % 16.0-4 7.0 Not Available [facility] (Lab) [address] [place], [address], 06/03/2024 17:28:58 06/03/2006/03/2024 CBC/C OMPLE TE BLD COUNT W/DIF F monocytes 6.0 % 5.0-12 .0 Not Available [facility] (Lab) [address] [place], [address], 06/03/2024 17:28:58 06/03/2006/03/2024 CBC/C OMPLE TE BLD COUNT W/DIF F eosinophils 2.8 % 1.0-7. 0 Not Available [facility] (Lab) [address] [place], [address], 06/03/2024 17:28:58 06/03/2006/03/2024 CBC/C OMPLE TE BLD COUNT W/DIF F basophils 0.5 % 0.0-2. 0 Not Available [facility] (Lab) [address] [place], [address], 06/03/2024 17:28:58 06/03/2006/03/2024 CBC/C OMPLE TE BLD COUNT W/DIF F immature granulocytes 0.2 % 0.00-0 .50 Not Available [facility] (Lab) [address] [place], [address], 06/03/2024 17:28:58 06/03/2006/03/2024 CBC/C OMPLE TE BLD COUNT W/DIF F neutrophils, absolute count 3.07 x10'3 /uL 1.5-8. 0 Not Available [facility] (Lab) [address] [place], [address], 06/03/2024 17:28:58 06/03/2006/03/2024 CBC/C OMPLE TE BLD COUNT W/DIF F lymphocytes, absolute count 2.04 x10'3 /uL 1.07-3 .43 Not Available [facility] (Lab) [address] [place], [address], 06/03/2024 17:28:58 06/03/2006/03/2024 CBC/C OMPLE TE BLD COUNT W/DIF F monocytes, absolute count 0.34 x10'3 /uL 0.29-0 .99 Not Available [facility] (Lab) [address] [place], [address], 06/03/2024 17:28:58 06/03/2006/03/2024 CBC/C OMPLE TE BLD COUNT W/DIF F eosinophils, absolute count 0.16 x10'3 /uL 0.02-0 .53 Not Available [facility] (Lab) [address] [place], [address], 06/03/2024 17:28:58 06/03/2006/03/2024 CBC/C OMPLE TE BLD COUNT W/DIF F basophils, absolute count 0.03 x10'3 /uL 0.01-0 .08 Not Available [facility] (Lab) [address] [place], [address], 06/03/2024 17:28:58 06/03/2006/03/2024 CBC/C OMPLE TE BLD COUNT W/DIF F immature granulocytes ,absolute 0.01 x10'3 /uL 0.00-0 .05 Not Available [facility] (Lab) [address] [place], [address], 06/03/2024 17:28:58 06/03/2006/03/2024 CBC/C OMPLE TE BLD COUNT W/DIF F nucleated red blood cells 0.0 % -0 Not Available [facility] (Lab) [address] [place], [address], 06/03/2024 17:28:58 06/03/2006/03/2024 CBC/C OMPLE TE BLD COUNT W/DIF F NRBC# 0.00 x10'3 /uL Not Available [facility] (Lab) [address] [place], [address], 06/03/2024 17:28:58 06/03/2006/03/2024 VITAM IN D 25-HY DROXY vd25oh 32.3 NG/mL 30-100 Vitam in D Statu s: Defic ient: <20 ng/mL Insuf ficie nt: 20-29 ng/mL Suffi cient : 30-10 0 ng/mL Not Available [facility] (Lab) [address] [place], [address], 06/03/2024 21:05:49 06/03/2006/03/2024 VITAM IN B12 (TAMMY NIELS ) vb12 564 pg/mL 239-93 1 Not Available [facility] (Lab) [address] [place], [address], 06/03/2024 21:15:01 06/03/2006/03/2024 FOLAT E, SERUM /PLAS MA folate >20.0 NG/mL 2.76-2 0.0 Not Available [facility] (Lab) [address] [place], [address], 06/03/2024 21:15:02 06/03/20 24 06/03/2024 LIPID PANEL cholesterol 140 mg/dL 140-19 9 NIH ESTER NSUS RECOM MENDA TION FOR CARYN STERO L: ADULT CHILD LOW RISK: <200 <170 BORDE RLINE : <200- 239 ----- HIGH RISK: >240 >200 Not Available [facility] (Lab) [address] [place], [address], 06/03/2024 21:52:01 06/03/20 24 06/03/2024 LIPID PANEL triglyceride s 154 mg/dL 0-150 high NIH ESTER NSUS REPOR T RECOM MENDA TION FOR TRIGL YCERI KIMI: ADULT CHILD LOW RISK: <150 ----- BODER LINE: 150-1 99 ----- HIGH RISK: >200 ----- Not Available [facility] (Lab) [address] [place], [address], 06/03/2024 21:52:01 06/03/20 24 06/03/2024 LIPID PANEL HDL cholesterol 65 mg/dL 40- Not Available [facility] (Lab) [address] [place], [address], 06/03/2024 21:52:01 06/03/2006/03/2024 LIPID PANEL LDL cholesterol, [...] WILL NOT BE REPOR DAYANNA. Not Available [facility] (Lab) [address] [place], [address], 06/03/2024 21:52:01 06/03/2006/03/2024 COMP MET PANEL /LIVE R sodium 136 mmol/ L 137-14 5 low Not Available [facility] (Lab) [address] [place], [address], 06/03/2024 21:52:06 06/03/2006/03/2024 COMP MET PANEL /LIVE R potassium 3.9 mmol/ L 3.5-5. 1 Not Available [facility] (Lab) [address] [place], [address], 06/03/2024 21:52:06 06/03/2006/03/2024 COMP MET PANEL /LIVE R chloride 106 mmol/ L 98-107 Not Available [facility] (Lab) [address] [place], [address], 06/03/2024 21:52:06 06/03/2006/03/2024 COMP MET PANEL /LIVE R carbon dioxide 27 mmol/ L 22-30 Not Available [facility] (Lab) [address] [place], [address], 06/03/2024 21:52:06 06/03/20 24 06/03/2024 COMP MET PANEL /LIVE R anion gap 6.9 mmol/ L 14-22 low Not Available [facility] (Lab) [address] [place], [address], 06/03/2024 21:52:06 06/03/20 24 06/03/2024 COMP MET PANEL /LIVE R glucose 83 mg/dL 70-99 Not Available [facility] (Lab) [address] [place], [address], 06/03/2024 21:52:06 06/03/20 24 06/03/2024 COMP MET PANEL /LIVE R BUN 18 mg/dL 8-19 Not Available [facility] (Lab) [address] [place], [address], 06/03/2024 21:52:06 06/03/2006/03/2024 COMP MET PANEL /LIVE R creatinine 1.17 mg/dL 0.66-1 .25 Not Available [facility] (Lab) [address] [place], [address], 06/03/2024 21:52:06 06/03/2006/03/2024 COMP MET PANEL /LIVE R GFR 44 Refer ence Range : Star ge GFR Healt hy Adult : >60 [...] or ethni c subgr oups, such as Hisoh nics. Outsi de the valid ated vane [...] calcu lator is avail able on the [employer] websi te: [email or web address] :[email or web address] qi/gf r_cal culat or Not Available [facility] (Lab) [address] [place], [address], 06/03/2024 21:52:06 06/03/20 24 06/03/2024 COMP MET PANEL /LIVE R alkaline phosphatase 79 U/L 38-126 Not Available [facility] (Lab) [address] [place], [address], 06/03/2024 21:52:06 06/03/2006/03/2024 COMP MET PANEL /LIVE R alanine aminotransfe rase 17 U/L 0-35 Not Available [facility] (Lab) [address] [place], [address], 06/03/2024 21:52:06 06/03/2006/03/2024 COMP MET PANEL /LIVE R aspartate aminotransfe rase 23 U/L 15-37 Not Available [facility] (Lab) [address] [place], [address], 06/03/2024 21:52:06 06/03/2006/03/2024 COMP MET PANEL /LIVE R bilirubin, total 0.20 mg/dL 0.20-1 .30 Not Available [facility] (Lab) [address] [place], [address], 06/03/2024 21:52:06 06/03/2006/03/2024 COMP MET PANEL /LIVE R bilirubin, conjugated (direct) 0.00 mg/dL 0.00-0 .30 Not Available [facility] (Lab) [address] [place], [address], 06/03/2024 21:52:06 06/03/2006/03/2024 COMP MET PANEL /LIVE R biliurubin,u ncong. (indirect) 0.00 mg/dL 0.00-1 .1 Not Available [facility] (Lab) [address] [place], [address], 06/03/2024 21:52:06 06/03/20 24 06/03/2024 COMP MET PANEL /LIVE R calcium 8.7 mg/dL 8.4-10 .2 Not Available [facility] (Lab) [address] [place], [address], 06/03/2024 21:52:06 06/03/2006/03/2024 COMP MET PANEL /LIVE R total protein 5.3 g/dL 6.3-8. 2 low Not Available [facility] (Lab) [address] [place], [address], 06/03/2024 21:52:06 06/03/2006/03/2024 COMP MET PANEL /LIVE R albumin 3.4 g/dL 3.0-4. 4 Not Available [facility] (Lab) [address] [place], [address], 06/03/2024 21:52:06 06/03/2006/03/2024 COMP MET PANEL /LIVE R globulin 1.9 g/dL 2.6-4. 2 low Not Available [facility] (Lab) [address] [place], [address], 06/03/2024 21:52:06 06/03/2006/03/2024 COMP MET PANEL /LIVE R A/G ratio 1.8 ratio 1.0-2. 0 Not Available [facility] (Lab) [address] [place], [address], 06/03/2024 21:52:06 06/03/2006/03/2024 TSH W/REF CAL FT4 TSH with reflex free T4 1.860 uIU/m L 0.465- 4.680 Not Available [facility] (Lab) [address] [place], [address], 06/03/2024 21:58:21 02/28/20 24 02/28/2024 imagi ng/di agnos tic resul t No observ ation record ed. SUNITA [facility] [address] [place], [address], 02/28/2024 09:19:08 Result Notes None recorded. Problems Name Problem SNOMED Code Status Onset Date Resolution Date Notes Provider Name and Address Organization Details Recorded Time Chronic obstructiv e pulmonary disease 82323660 Active Not Available [facility] 3 06:31:28 Edema 320463647 Completed Not Available [facility] 3 04:52:36 Vitamin D deficiency 74173222 Active Not Available [facility] 3 06:31:28 Contact dermatitis 39420100 Completed Not Available [facility] 3 04:52:36 Hypothyroi dism 26352022 Active Not Available [facility] 3 06:31:28 Eczema 31776719 Active Not Available [facility] 3 06:31:28 Vitamin B deficiency 13428401 Active Not Available [facility] 3 06:31:28 Hyperlipid emia 63951292 Active Not Available [facility] 3 06:31:28 Lipoma 80705462 Active Not Available [facility] 3 06:31:28 Sinusitis 02940149 Completed 201601/16/2017 Not Available [facility] 3 04:52:36 Disorder of vitamin B12 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 Active 2020 Not Available [facility] 3 06:31:28 Anemia 979215357 Active 2021 Not Available [facility] 3 06:31:28 Hypocalcem ia 7547473 Active 2021 Not Available [facility] 3 06:31:28 Cobalamin deficiency 787618010 Active 2021 Not Available [facility] 3 06:31:28 Pain in throat 784792704 Active 2021 Not Available [facility] 3 06:31:28 Lymphedema of lower extremity 598949218 Active 2022 Not Available [facility] 3 06:31:28 Rosacea 308387952 Active 2022 Not Available [facility] 3 06:31:28 Iron deficiency 74303329 Active 2022 Not Available [facility] 3 06:31:28 Acute urinary tract infection 180772158 Active 2022 VINI Oliveira null, [facility] 5 17:31:13 Urinary symptoms 091556817 Active 2022 Namita Pan MA null, [facility] 5 15:12:04 Vaginitis 90035361 Active 2022 Not Available [facility] 3 06:31:28 Fracture of neck of femur 1004417 Active 2022 Not Available [facility] 3 06:31:28 Serum vitamin B12 below reference range 811609468 Active 2023 Melina graf MD [address], [place], [address] , [facility] 4 15:15:49 Serum potassium level below reference range 592207921 Active 2023 Michelle Mott MA null, [facility] 4 11:27:57 Iron deficiency anemia 14372234 Active 2023 LISSA Wheat, [facility] 4 11:29:07 Chronic kidney disease 801847540 Active 2023 LISSA Wheat, [facility] 4 11:59:40 Candidiasi s of skin 40635080 Active 2023 Michelle Mott MA null, [facility] 4 15:21:44 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 2023 Melina graf MD [address], [place], [address] , [facility] 4 18:17:18 Edema of lower extremity 387439870 Active 2023 Melina graf MD [address], [place], [address] , [facility] 4 14:33:05 Essential hypertensi on 73007764 Active 2024 Melina graf MD [address], [facility] [address], [place], [address] , [facility] [employer] [facility] 5 12:08:15 Electrocar diogram abnormal 174446708 Active 2024 VINI Oliveira, [facility] 5 09:41:20 Recurrent urinary tract infection 622428718 Active 2024 LISSA Duncan, [facility] [employer] [facility] 5 15:16:41 Problem Notes None recorded. Procedures Surgical History Date Name Laterality Status Provider Name and Address Organization Details Recorded Time 04/28/20 25 Medicare Wellness CPT Code, subsequent completed Kori Childers [facility] [employer] [facility] 04/27/2025 09:21:15 03/11/20 24 Medicare Wellness CPT Code, subsequent completed Thompson Quiñones LPN [facility] [employer] [facility] 03/04/2024 12:53:51 01/18/20 23 Hip surgery completed VINI Oliveira [facility] [employer] [facility] 10/11/2023 15:15:58 Colonoscopy completed Not Available [facility] 11/01/2022 04:44:20 Cholecystectomy completed Not Available [facility] 11/01/2022 04:44:20 Hysterectomy completed Not Available [facility] 11/01/2022 04:44:20 excision of group of lymph nodes completed VINI Oliveira [facility] [employer] [facility] 10/11/2023 15:16:41 Cataract Surgery completed VINI Oliveira [facility] [employer] [facility] 12/09/2024 12:03:09 Imaging Results None recorded. Procedure Notes None recorded. Medical Equipment None Reported. Allergies Allergen ID Allergen Name Allergen Category Reaction Reaction Severity Criticality Documentation Date Start Date Code Code System Note Provider Name and Address Organization Details Recorded Time 73436 sulfameth oxazole medicatio n itching mild low 04/28/2025 32593 RxNorm Kori vieira [place] [facility] 5 10:58:21 8184 Terramyci n medicatio n rash Not available Not available 11/01/202257520 4 RxNorm Not Available [facility] 3 05:04:15 8185 Keflex medicatio n rash Not available Not available 11/01/2022 65770 7 RxNorm Not Available [facility] 3 05:04:15 8186 erythromy jeimy medicatio n rash Not available Not available 11/01/2022 4053 RxNorm Not Available [facility] 3 05:04:16 8187 amoxicill in medicatio n rash Not available Not available 11/01/2022 723 RxNorm Not Available [facility] 3 05:04:16 Medications Name Sig Start Date Stop Date Status Note LastModified by Organization Details LastModified Time fluconazo le 100 mg tablet 07/16 completed Not Available Not Available Not Available prednison e 10 mg tablet 07/23 completed Not Available Not Available Not Available fluconazo le 150 mg tablet TAKE 1 TABLET BY MOUTH ONCE 03/11 completed Not Available Not Available Not Available fluconazo le 200 mg tablet 07/19 completed Not Available Not Available Not Available doxycycli ne hyclate 50 mg capsule TAKE 1 CAPSULE BY MOUTH EVERY DAY 05/10 completed Not Available Not Available Not Available clindamyc in HCl 150 mg capsule 01/20 completed Not Available Not Available Not Available acetamino phen 300 mg-codein e 15 mg tablet TAKE 1 TABLET BY MOUTH EVERY 6 HOURS NEEDED FOR PAIN 07/17 completed Not Available Not Available Not Available acetamino phen 300 mg-codein e 30 mg tablet 07/23 completed Not Available Not Available Not Available ciproflox acin 250 mg tablet TAKE 1 TABLET BY MOUTH EVERY 12 HOURS FOR 5 DAYS 05/10 completed Not Available Not Available Not Available ciproflox acin 500 mg tablet TAKE 1 TABLET BY MOUTH TWICE A DAY FOR 7 DAYS 04/28 completed Not Available Not Available Not Available sulfameth oxazole 800 mg-trimet hoprim 160 mg tablet TAKE 1 TABLET BY MOUTH TWICE A DAY FOR 5 DAYS 04/28 completed Not Available Not Available Not Available ketorolac 0.5 % eye drops INSTILL 1 DROP INTO THE OPERATED EYE 3 TIMES A DAY BEGINNIN G 3 DAYS BEFORE SURGERY 12/09 completed Not Available Not Available Not Available Kenalog 40 mg/mL suspensio n for injection Take 2 mL every day by injectio n route for 1 day. 07/22 completed [facility]# [id number] [id number] Not Available Not Available Not Available ciclopiro x 8 % topical solution APPLY TO NAIL DAILY 10/11 completed Not Available Not Available Not Available prednisol one acetate 1 % eye drops,domi pension INSTILL 1 DROP INTO THE OPERATED EYE 3 TIMES A DAY BEGINNIN G THE DAY AFTER SURGERY 12/09 completed Not Available Not Available Not Available cyanocoba niels (vit B-12) 1,000 mcg/mL injection solution Inject 1 mL every month by subcutan eous route. 03/11 completed Not Available Not Available Not Available tacrolimu s 0.1 % topical ointment ABI EXT AA BID PRN active Not Available Not Available No t Available ferrous sulfate 325 mg (65 mg iron) tablet TAKE 1 TABLET BY MOUTH EVERY DAY 2024 active Not Available Not Available Not Avai lable triamcino lone acetonide 0.1 % topical ointment APPLY 1 APPLICAT ION ONTO THE RASH ON THE SKIN TWICE DAILY NEEDED active Not Available Not Available No t Available ascorbate calcium (vitamin C) 500 mg tablet Take by oral route. active Not Available Not Available No t Available olopatadi ne 0.1 % eye drops INSTILL 1 DROP INTO AFFECTED EYE(S) BY OPHTHALM IC ROUTE 2 TIMES PER DAY AT AN [...] IN THE MORNING ON AN EMPTY STOMACH 2024 active Not Available Not Available Not Avai lable mupirocin 2 % topical ointment 07/23 completed Not Available Not Available Not Available ergocalci ferol (vitamin D2) 1,250 mcg (50,000 unit) capsule TAKE 1 CAPSULE BY MOUTH TWICE WEEKLY FOR 90 DAYS active Not Available Not Available No t Available levofloxa jeimy 750 mg tablet TAKE 1 TABLET BY MOUTH EVERY DAY FOR 7 DAYS 06/10 completed Not Available Not Available Not Available methylpre dnisolone 4 mg tablets in a dose pack Take by oral route as directed 07/19 completed Not Available Not Available Not Available neomycin 500 mg tablet active Not Available Not Available Not Available ipratropi um bromide 42 mcg (0.06 %) nasal spray active Not Available Not Available Not Available metronida zole 0.75 % topical gel APPLY TO FACE TWICE DAILY NEEDED 04/27 completed Not Available Not Available Not Available doxycycli ne hyclate 100 mg tablet 01/20 completed Not Available Not Available Not Available calcitrio l 0.25 mcg capsule TAKE 1 CAPSULE BY MOUTH EVERY DAY FOR 90 DAYS active Not Available Not Available No t Available tobramyci n 0.3 %-dexamet hasone 0.1 % eye drops,domi pension 07/23 completed Not Available Not Available Not Available nitrofura ntoin monohydra te/macroc rystals 100 mg capsule TAKE 1 CAPSULE BY MOUTH TWICE A DAY FOR 7 DAYS 04/28 completed Patient will bring in informat ion she thinks shes has allergy Not Available Not Available Not Available Nyamyc 100,000 unit/gram topical powder active Not Available Not Available Not Available Boostrix Tdap 2.5 Lf unit-8 mcg-5 Lf/0.5 mL intramusc ular suspensio n active Not Available Not Available Not Available metronida zole 1 % topical gel APPLY 1 APPLICAT ION ONTO THE FACE TWICE DAILY active Not Available Not Available No t Available PreserVis ion AREDS 12/09 completed Not Available Not Available Not Available Pataday 0.2 % eye drops active Not Available Not Available Not Available Xifaxan 550 mg tablet active Not Available Not Available Not Available Eliquis 2.5 mg tablet TAKE 1 TABLET BY MOUTH TWICE A DAY FOR 35 DAYS. 07/17 completed Not Available Not Available Not Available potassium chloride ER 20 mEq tablet,ex tended release TAKE 1 TABLET BY MOUTH EVERY DAY FOR 5 DAYS 03/11 completed Not Available Not Available Not Available mecobalam in (vitamin B12) 500 mcg chewable tablet Take by oral route. active Not Available Not Available No t Available Vitals Date Recorded Body height Body mass index (BMI) Body weight Body temperature Heart rate Respiratory rate Oxygen saturation Pain severity - 0-10 verbal numeric rating [Score] - Reported Systolic And Diastolic Provider Name and Address Organization Details Last Updated DateTime 5 157.48 cm 24.3 kg/m2 78730.7 9 g 98 [degF] 56 /min 16 /min 98 % 0 142/70 mm[Hg] Thompson Quiñones LPN [facility] [employer] [facility] 5 11:34:12 Date Recorded Body height Body mass index (BMI) Body weight Body temperature Heart rate Systolic And Diastolic Provider Name and Address Organization Details Last Updated DateTime 5 157.48 cm 24 kg/m2 48199.6 g 97.4 [degF] 60 /min 122/2 mm[Hg] Esperanza Mcelroy Lesia [facility] [employer] [facility] 5 12:05:00 Date Recorded Body height Body mass index (BMI) Body weight Body temperature Heart rate Systolic And Diastolic Provider Name and Address Organization Details Last Updated DateTime 4 157.48 cm 24.3 kg/m2 67147.7 9 g 97.9 [degF] 72 /min 120/68 mm[Hg] Esperanza Mcelroy [facility] [employer] [facility] 4 14:11:11 Date Recorded Pain severity - 0-10 verbal numeric rating [Score] - Reported Provider Name and Address Organization Details Last Updated DateTime 03/11/2024 5 Thompson Quiñones LPN [facility] [employer] [facility] 03/11/2024 14:42:45 Date Recorded Body height Body temperature Body mass index (BMI) Body weight Oxygen saturation Heart rate Respiratory rate Systolic And Diastolic Provider Name and Address Organization Details Last Updated DateTime 5 157.48 cm 97.6 [degF] 23.9 kg/m2 35605.8 g 98 % 66 /min 17 /min 118/68 mm[Hg] Kori Childers [facility] [employer] [facility] 5 11:01:53 Date Recorded Body height Body mass index (BMI) Body weight Body temperature Heart rate Oxygen saturation Systolic And Diastolic Provider Name and Address Organization Details Last Updated DateTime 4 157.48 cm 24.9 kg/m2 05381.5 6 g 96.8 [degF] 77 /min 99 % 134/70 mm[Hg] LISSA Hooker - [facility] 11:16:19 Social History Question Answer Notes LastModified by Organization Details LastModified Time Tobacco Smoking Status Never Smoker Not Available [employer] 11/01/2022 04:13:32 Do You Have An Advance Directive? Yes Information not available 10/11/2023 How Many Years Have You Consumed Alcohol? 40 Information not available 04/27/2025 Are You Blind Or Do You Have Difficulty Seeing? No Information not available 10/11/2023 Is Blood Transfusion Acceptable In An Emergency? Yes [email or web address] Information not available 03/11/2024 What Is Your Level Of Caffeine Consumption? Occasional [id number] [id number] Information not available 11/01/2022 How Much Tobacco Do You Chew? None MIGRATION.0301 [id number] Information not available 11/01/2022 What Is Your Code Status? DNR [email or web address] Information not available 03/11/2024 In The 14 Days Before Symptom Onset, Have You Had Close Contact With A Laboratory-confi rmed COVID-19 While That Case Was Ill? No MIGRATION.0301 [id number] Information not available 11/01/2022 In The 14 Days Before Symptom Onset, Have You Had Close Contact With A Person Who Is Under Investigation For COVID-19 While That Person Was Ill? No MIGRATION.0301 [id number] Information not available 11/01/2022 Are You Deaf Or Do You Have Serious Difficulty Hearing? No Information not available 10/11/2023 What Type Of Diet Are You Following? SPECIFIC Due To Scarring MIGRATION.0301 [id number] Information not available 11/01/2022 Which Illicit Or Recreational Drugs Have You Used? None MIGRATION.0301 [id number] Information not available 11/01/2022 What Is The Highest Grade Or Level Of School You Have Completed Or The Highest Degree You Have Received? [id number] MIGRATION.0301 [id number] Information not available 11/01/2022 How Many Days Of Moderate To Strenuous Exercise, Like A Brisk Walk, Did You Do In The Last 7 Days? 0 [email or web address] Information not available 03/11/2024 Have There Been Any Changes To Your Family Or Social Situation? No MIGRATION.0301 [id number] Information not available 11/01/2022 What Is The Fluoride Status Of Your Home? Unknown MIGRATION.0301 [id number] Information not available 11/01/2022 Are There Any Guns Present In Your Home? No MIGRATION.0301 [id number] Information not available 11/01/2022 Do You Use Insect Repellent Routinely? No MIGRATION.0301 [id number] Information not available 11/01/2022 Where Do You Live? SingleLevelHouse MIGRATION.0301 [id number] Information not available 11/01/2022 Advance Directive- Providers Has Reviewed Directive And Consents To Follow Them (insert Provider Name With Any Objectives In Notes Field) Yes [email or web address] Information not available 03/11/2024 Presence Of Domestic Violence No [email or web address] Information not available 03/11/2024 Guns Present In The Home? No Information not available 03/11/2024 Are You Able To Care For Yourself? Yes [email or web address] Information not available 03/11/2024 Are You Blind Or Do Yo Have Difficulty Seeing? No Information not available 03/11/2024 Are You Deaf Or Do You Have Serious Difficulty Hearing? No [email or web address] Information not available 03/11/2024 General Stress Level? Low [email or web address] Information not available 03/11/2024 Live Alone Of With Others? With Others Her Daughter And Grandson Live With Her Information not available 03/11/2024 Do You Have A Medical Power Of Election Supervisor? Yes Information not available 10/11/2023 What Was The Date Of Your Most Recent Tobacco Screening? 12/09/2024 Information not available 12/09/2024 How Many Children Do You Have? 2 [email or web address] Information not available 03/11/2024 Have You Ever Been Counseled For Unhealthy Alcohol Use? No Information not available 03/11/2024 Do You Have Any Pets? No MIGRATION.0301 [id number] Information not available 11/01/2022 What Is Your Relationship Status? MIGRATION.0301 [id number] Information not available 11/01/2022 Do You Use Your Seat Belt Or Car Seat Routinely? Yes [email or web address] Information not available 03/11/2024 Do You Have Smoke And Carbon Monoxide Detectors In Your Home? No MIGRATION.0301 156056 Information not available 11/01/2022 Are You Passively Exposed To Smoke? No MIGRATION.0301 [id number] Information not available 11/01/2022 Are There Any Smokers In Your House? No MIGRATION.0301 137854 Information not available 11/01/2022 What Types Of Sporting Activities Do You Participate In? None MIGRATION.0301 [id number] Information not available 11/01/2022 Do You Use Sunscreen Routinely? Yes MIGRATION.0301 [id number] Information not available 11/01/2022 Has Tobacco Cessation Counseling Been Provided? No N/a Information not available 10/11/2023 Have You Recently Traveled Abroad? No MIGRATION.0301 [id number] Information not available 11/01/2022 Do You Have Difficulty Walking Or Climbing Stairs? No Information not available 10/11/2023 Do You Have Any Dietary Restrictions? No MIGRATION.0301 [id number] Information not available 11/01/2022 How Many Days In The Past Year Have You Consumed 4 Or More Drinks? -1 [email or web address] Information not available 03/11/2024 Sex: Unknown Functional Status Question Answer Note LastModified by Organizat ion Details LastModified Time Do you use any illicit or recreational drugs? No [id number].[id number] [id number] Information not available 11/01/2022 Do you or have you ever used any other forms of tobacco or nicotine? No Information not available 10/11/2023 What is your level of alcohol consumption? Occasional [id number] Information not available 11/01/2022 Do you or have you ever used smokeless tobacco? Never used smokeless tobacco MIGRATION.[id number] 8780 Information not available 11/01/2022 Are you currently employed? No Information not available 10/11/2023 Do you have transportation difficulties? No Information not available 10/11/2023 Are you able to walk independently without assistance or assistive devices? [email or web address] Information not available 10/11/2023 Do you have difficulty doing errands alone? No Information not available 10/11/2023 Are you able to care for yourself independently? Yes Information not available 10/11/2023 Do you have difficulty dressing, bathing, grooming, or toileting? No Information not available 10/11/2023 Do you or have you ever used e-cigarettes or vape? Never used electronic cigarettes MIGRATION.[id number] Information not available 11/01/2022 What is your exercise level? None [email or web address] Information not available 03/11/2024 Mental Status Question Answer Note LastModified by Organizat ion Details LastModified Time Do you feel stressed (tense, restless, nervous, or anxious, or unable to sleep at night)? [id number] [email or web address] Information not available 03/11/2024 Do you have difficulty concentrating, remembering or making decisions? No Information no t available 10/11/2023 Family History Relationship Description Onset Age of this Age Resolved Age Notes LastModified by Organization Details LastModified Time Father Hypertensive disorder MIGRATION.498 [id number] Not available 11/01/2022 04:44:22 Mother Rheumatic fever MIGRATION.412 [id number] Not available 11/01/2022 04:44:22 Unspecified Relation Family history of neoplasm of skin Not available 2023 15:13:12 Medical History Condition Response SKIN PROBLEMS Y CANCER: SPECIFY Y ARTHRITIS Y THYROID DISEASE Y ALLERGIES/HAYFEVER Y HAVE YOU BEEN HOSPITALIZED OR SEEN IN [facility] IN THE PAST YEAR ? N Gynecological History Statement/Question Response How many live births 2 Date of Last Colonoscopy Date of Last Mammogram Date of LMP Most Recent Bone Density Date of Last Pap Current Control Method Hysterectom y Obstetrics History GPAL:G 4 P 2 0 2 2 Type Value Multiple Births 0 Full Term 2 Induced 0 Spontaneous 2 Premature 0 Living 2 Ectopics 0 Total 4 Immunizations Vaccine Type Date Status Note Provider Nam e and Address Organization Details Recorded Time Influenza, split virus, trivalent, preservative 3 completed ADAM Myles, [employer] 03/05/2024 13:48:49 COVID-19, mRNA, LNP-S, PF, fernanda-sucrose, 30 mcg/0.3 mL 4 completed [facility] 12:01:53 RSV, recombinant, protein subunit RSVpreF, adjuvant reconstituted, 0.5 mL, PF 4 completed FELECIA OliveiraA isha, [facility] 12/09/2024 12:01:53 Tdap 4 completed Esperanza Mcelroy RMA null, [facility] 12/09/2024 12:01:53 zoster recombinant 4 completed Esperanza Mcelroy RMA null, [facility] 12/09/2024 12:01:53 zoster recombinant 4 completed VINI Oliveira, [facility] 12/09/2024 12:01:53 COVID-19, mRNA, LNP-S, PF, fernanda-sucrose, 30 mcg/0.3 mL 5 completed Not Available [facility] 04/28/2025 10:53:43 COVID-19, mRNA, LNP-S, PF, 100 mcg/0.5mL dose or 50 mcg/0.25mL dose 1 completed ADAM Myles, [facility] 03/05/2024 13:48:49 COVID-19, mRNA, LNP-S, PF, 100 mcg/0.5mL dose or 50 mcg/0.25mL dose 1 completed ADAM Myles, [facility] 03/05/2024 13:48:49 COVID-19, mRNA, LNP-S, PF, 100 mcg/0.5mL dose or 50 mcg/0.25mL dose 1 completed ADAM Myles, [facility] 03/05/2024 13:48:49 Influenza, split virus, quadrivalent, preservative 0 completed Not Available [facility] 07/19/2023 06:31:28 Influenza, split virus, quadrivalent, preservative 9 completed Not Available [facility] 07/19/2023 06:31:28 Influenza, split virus, quadrivalent, preservative 8 completed Not Available [facility] 07/19/2023 06:31:28 Influenza, split virus, quadrivalent, preservative 7 completed Not Available [facility] 07/19/2023 06:31:28 Tdap 3 completed Not Available [facility] 07/19/2023 06:31:28 Pneumococcal conjugate PCV 13 5 completed Not Available [facility] 07/19/2023 06:31:28 Influenza, high-dose, quadrivalent, PF 2 completed Not Available [facility] 07/19/2023 06:31:28 Influenza, high-dose, quadrivalent, PF 1 completed Not Available [facility] 07/19/2023 06:31:28 Influenza, high-dose, quadrivalent, PF 0 completed Not Available [facility] 07/19/2023 06:31:28 Influenza, high-dose, trivalent, PF 9 completed Not Available [facility] 07/19/2023 06:31:28 Influenza, high-dose, trivalent, PF 8 completed Not Available [facility] 07/19/2023 06:31:28 Influenza, high-dose, trivalent, PF 7 completed Not Available [facility] 07/19/2023 06:31:28 Influenza, high-dose, trivalent, PF 6 completed Not Available [facility] 07/19/2023 06:31:28 Tdap 6 completed Not Available [facility] 07/19/2023 06:31:28 Influenza, high-dose, trivalent, PF 4 completed Not Available [facility] 07/19/2023 06:31:28 Influenza, high-dose, quadrivalent, PF 3 completed REGGIE Frias [address] [facility], [address] [address], [place], [address], [facility] 07/12/2023 17:44:55 Influenza, high-dose, trivalent, PF 4 completed Melina Sosa MD [address], [address], [place], [address], [facility] 06/27/2024 22:16:45 Past Encounters Encounter ID Performer Location Encounter Start Date Encounter Closed Date Diagnosis/Indication Diagnosis SNOMED-CT Code Diagnosis ICD10 Code Diagnosis IMO Codes Diagnosis Note [id number] [facility] [place] [address] [place] [address] 02/07/2021 00:00:00 02/07/2021 10:26:41 [id number] Cori Zhu MD [facility] [place] On license of [facility] [place] [address] 02/09/2021 00:00:00 02/09/2021 10:08:32 [id number] Cori Zhu MD [facility] [place] On license of [facility] [place] [address] 02/16/2021 00:00:00 02/16/2021 10:05:57 [id number] Cori Zhu MD [facility] [place] On license of [facility] [place] [address] 02/23/2021 00:00:00 02/24/2021 16:17:08 [id number] Cori Zhu MD [facility] [place] [address] [place] [address] 03/02/2021 00:00:00 03/02/2021 09:31:42 [id number] Cori Zhu MD [facility] [place] On license of [facility] [place] [address] 03/30/2021 00:00:00 03/30/2021 10:41:20 [id number] Cori Zhu MD [facility] [place] On license of [facility] [place] [address] 04/28/2021 00:00:00 04/28/2021 09:34:[id number] [facility] [place] [address] , [place] [address] 05/10/2021 00:00:00 05/10/2021 16:13:[id number] [facility] [place] On license of [facility] [place] [address] 05/30/2021 00:00:00 05/30/2021 09:51:[id number] [facility] [place] [address] [place] [address] [place] [address] 06/29/2021 00:00:00 06/29/2021 11:53:[id number] [facility] [place] [address] [place] [address] [place] [address] 08/01/2021 00:00:00 08/01/2021 11:08:34 [id number] [facility] [place] [address] [place] [address] [place] [address] 08/09/2021 00:00:00 08/09/2021 10:26:[id number] [facility] [place] On license of [facility] [place] [address] 08/31/2021 00:00:00 08/31/2021 12:17:[id number] [facility] [place] On license of [facility] [place] [address] 09/29/2021 00:00:00 09/29/2021 11:51:44 [id number] [facility] [place] [address], [place] [address] 10/31/2021 00:00:00 10/31/2021 11:07:[id number] [facility] [place] [address], [place] [address] 11/28/2021 00:00:00 11/28/2021 12:32:[id number] [facility] [place] [address], [place] [address] 12/28/2021 00:00:00 12/28/2021 10:38:[id number] [facility] [place] [address], [place] [address] 01/25/2022 00:00:00 01/25/2022 10:25:[id number] [facility] [place] [address] , [place] [address] 02/13/2022 00:00:00 02/13/2022 11:10:[id number] [facility] [place] [address], [place] [address] 02/22/2022 00:00:00 02/22/2022 10:07:[id number] [facility] [place] [address], [place] [address] 03/22/2022 00:00:00 03/22/2022 10:10:05 [id number] [facility]Gateway [facility] [place] [address], [place] [address] 04/19/2022 00:00:00 04/19/2022 11:15:12 [id number] Cori Zhu MD [facility] [place] [address] , [place] [address] 05/17/2022 00:00:00 05/29/2022 09:27:05 [id number] Cori Zhu MD [facility] [place] [address] , [place] [address] 06/09/2022 00:00:00 06/09/2022 17:25:46 [id number] [facility] ic[facility]Gateway [facility] [place] [address] , [place] [address] 06/14/2022 00:00:00 06/14/2022 10:07:13 [id number] Cori Zhu MD [facility] [place] On license of [facility] [address] , [place] [address] 07/12/2022 00:00:00 07/12/2022 10:24:06 [id number] Melina graf MD [facility] [address] , [address] [address] 07/18/2022 00:00:00 07/18/2022 15:32:[id number] [facility] [address] , [address] [address] 01/02/2023 14:16:53 01/02/2023 14:57:55 Hyperlipidemia 76154359 E78.5 no meds, working on lifestyle measures Hypothyroidism 18038475 E03.9 On SynthroidU pdate labs Vitamin D deficiency 347 41700 E55.9 Check labsCould not tolerate weekly supplement May need to try OTC daily Chronic ob structive pulmonary disease 90040649 J44.9 Asymptomat ic off of medsCall office if any issues Cobalamin deficiency 190 953909 E53.8 On monthly B12 shots Lymphedema of lower extremity 964815523 I89.0 wears compressio n stockings Rosacea 136352923 L71.9 follows derm- Mariellelesia Rodriguez in [facility] topical metronidaz ole from them [id number] Melina graf MD [facility] [address] [place] [address] 03/26/2023 11:19:00 03/26/2023 11:50:44 Hyperlipidemia 84756166 E78.5 no meds, working on lifestyle measures Hypothyroidism 78158678 E03.9 On SynthroidU pdate labs Vitamin D deficiency 347 02702 E55.9 Could not tolerate weekly supplement May need to try OTC daily Chronic ob structive pulmonary disease 90146342 J44.9 Asymptomat ic off of medsCall office if any issues Cobalamin deficiency 190 632604 E53.8 On monthly B12 shots Lymphedema of lower extremity 596259160 I89.0 wears compressio n stockings Rosacea 984831064 L71.9 follows derm- Mariellelesia Rodriguez in [facility] topical metronidaz ole from them Urinary symptoms 9034717 08 R39.9 check UA/culture Vaginitis 76730576 N76.0 start fluconazol ecall office if no improvemen t after meds Fracture o f neck of femur 2896980 S72.001D follows [facility]- Dr. Pettit ext appt in 2 weeksis d/c Eliquis next weeklast PT is tomorrow [id number] Melina graf MD [facility] [address] [facility], [address] [address] 07/17/2023 10:10:15 07/17/2023 10:50:36 Hyperlipidemia 51951352 E78.5 no meds, working on lifestyle measures Hypothyroidism 83692922 E03.9 On SynthroidU pdate labs Vitamin D deficiency 347 65794 E55.9 Could not tolerate weekly supplement Chronic ob structive pulmonary disease 23933879 J44.9 Asymptomat ic off of medsCall office if any issues Cobalamin deficiency 190 276441 E53.8 On monthly B12 shots Lymphedema of lower extremity 318156369 I89.0 wears compressio n stockings Rosacea 167623528 L71.9 follows derm[place] topical metronidaz ole from them Fracture o f neck of femur 8255718 S72.001D follows [facility] ortho- Dr. Pettit ext appt at the end of the monthis now done with PT [id number] Melina graf MD [facility] [address] [facility] [address] 1 10/11/2023 15:06:11 10/11/2023 15:38:56 Screening - NAD 432333035 Z13.9 C-scope/Ma mmogram/PA P: Not doing does wellDEXA: Has declined this Get yearly flu shot, get tdap, get shingrix vaccineGet COVID 19 vaccine and its boostersGe t RSV vaccine RTC in 3 months, do labs, ER if worse, she did verbalize her understand ing of the above Hyperlipidemia 69929696 E78.5 Get labs Vitamin D deficiency 347 76282 E55.9 Chronic ob structive pulmonary disease 77067206 J44.9 Does well, no referrals wanted by her Serum valarie min B12 below reference range 254401219 R79.89 Fracture o f neck of femur 5244611 S72.001A Dr Rosita SLAUGHTERoes well now Rosacea 004388537 L71.9 Metronidaz ole topicalDr Marielle Rodriguez dermatolog y Hypothyroidism 80719874 E03.9 On synthroid 50mcgs dailyGet labsRenewe d 10/11/2023 [id number] Melina graf MD [facility] [address] [facility] [address] [place] [address] 03/11/2024 13:58:27 03/11/2024 14:55:43 Adult health examination 239664771 Z00.00 Screening for disorder 711101928 Z13.9 Screening - NAD 48355405 3 Z13.9 C-scope/Ma mmogram/PA P: Not doing does wellDEXA: Has declined thisNo complaints at this time Get yearly flu shot, get tdap, get shingrix vaccineGet COVID 19 vaccine and its boostersGe t RSV vaccine RTC in 3 months, do labs, ER if worse, she did verbalize her understand ing of the above Hyperlipidemia 84778678 E78.5 Get labs Vitamin D deficiency 347 45103 E55.9 Can d/c the vit dSees Dr Rodrigue BETH Chronic ob structive pulmonary disease 39401331 J44.9 Does well, no referrals wanted by her Serum valarie min B12 below reference range 183340765 R79.89 Fracture o f neck of femur 7703769 S72.001A Dr Becker [facility]UDoes well now Rosacea 398689743 L71.9 Metronidaz ole topicalDr Marielle Rodriguez dermatolog y Hypothyroidism 60141060 E03.9 On synthroid 50mcgs dailyGet labsRenewe d 10/11/2023 Hypoproteinemia 0732619 E88.09 More protein in diet Chronic ki dney disease 747456721 N18.[address] Rodrigue BETH Anemia 987073037 D64.9 Dr Munoz/Kar ann Tomac: 02/29/2024 : F/u in 4 monthsOn iron po Acute urin marva tract infection 814925481 N39.0 UA 03/11/2024 : Negative Has noted some burning with urineStart on levaquin Edema of l ower extremity 908639137 R60.0 Will stop the vit d as she does feel that this occurs when she takes the weekly high doseAlso start on levaquin as she does have multiple antibiotic allergies [id number] Melina graf MD [facility] 15 [address] [facility], [facility] [address] [place] [address] 06/10/2024 11:06:07 06/10/2024 11:49:25 Screening - NAD 833163764 Z13.9 C-scope/Ma mmogram/PA P: Not doing does wellDEXA: Has declined thisNo complaints at this time Get yearly flu shot, get tdap, get shingrix vaccineGet COVID 19 vaccine and its boostersGe t RSV vaccine RTC in 3 months, do labs, ER if worse, she did verbalize her understand ing of the above Hyperlipidemia 63646026 E78.5 Get labsMild TG elevated, more diet control, not on any meds Vitamin D deficiency 347 32254 E55.9 Can d/c the vit dSees Dr Rodrigue BETH Chronic ob structive pulmonary disease 75591295 J44.9 Does well, no referrals wanted by her Serum valarie min B12 below reference range 511410114 R79.89 Fracture o f neck of femur 5711085 S72.001A Dr Rosita Pacheco well now Rosacea 081759705 L71.9 Metronidaz ole topicalDr Marielle Rodriguez dermatolog y Hypothyroidism 11793294 E03.9 On synthroid 50mcgs dailyGet labsRenewe d 10/11/2023 Hypoproteinemia 7510006 E88.09 More protein in diet Chronic ki dney disease 141368372 N18.[address] Rodrigue BETH Anemia 392787060 D64.9 Dr Munoz/Kar ann Tomac: 02/29/2024 : F/u in 4 monthsOn iron po Administra tion of influenza vaccine 06170446 Z23 [id number] Melina graf MD [facility] [address] [facility], [facility] [address] [place] [address] 09/09/2024 11:17:10 09/09/2024 12:20:00 Screening - NAD 670662917 Z13.9 C-scope/Ma mmogram/PA P: Not doing does wellDEXA: Has declined thisNo complaints at this time Get yearly flu shot, get tdap, get shingrix vaccineGet COVID 19 vaccine and its boostersGe t RSV vaccine RTC in 3 months, do labs, ER if worse, she and her daughter did verbalize her understand ing of the above Hyperlipidemia 37253468 E78.5 Get labsDiet control, not on any meds Vitamin D deficiency 347 55559 E55.9 Can d/c the vit dSees Dr Rodrigue BETH Chronic ob structive pulmonary disease 19507896 J44.9 Does well, no referrals wanted by her Serum valarie min B12 below reference range 335169421 R79.89 Fracture o f neck of femur 9051321 S72.001A Dr Rosita Pacheco well now Rosacea 607608001 L71.9 Met[address] topicalDr Marielle Michael dermatolog y Hypothyroidism 89923302 E03.9 On synthroid 50mcgs dailyGet labsRenewe d 10/11/2023 Hypoproteinemia 3752043 E88.09 More protein in diet Chronic ki dney disease 689073194 N18.9 On vit dOn calcitriol Sees Dr Rodrigue BETH Anemia 837332321 D64.9 Dr Munoz/Kar ann Tomac: 02/29/2024 : F/u in 4 monthsOn iron po Pre-surger y evaluation 067319102 Z01.818 Surgery: L cataractSu rgeon: Dr Macias : 09/25/2024 Anesthesia : Local, IV sedationLa bs: Hilda nce: Cleared for surgery pending EKG Essential hypertension 33370912 I10 On losartan 25m dailySees Dr Rodrigue BETH [id number] Melina graf MD [facility] [address] [facility], [facility] [address] [place] [address] 12/09/2024 11:51:25 12/09/2024 12:30:16 Screening - NAD 521785106 Z13.9 C-scope/Ma mmogram/PA P: Not doing does wellDEXA: Has declined thisNo complaints at this time Get yearly flu shot, get tdap, get shingrix vaccineGet COVID 19 vaccine and its boostersGe t RSV vaccineCan do prevnar #20 RTC in 3 months, do labs, ER if worse, she did verbalize her understand ing of the above Hyperlipidemia 79512011 E78.5 Get labsDiet control, not on any meds Vitamin D deficiency 347 55277 E55.9 Can d/c the vit dSees Dr Rodrigue BETH Chronic ob structive pulmonary disease 44436456 J44.9 Does well, no referrals wanted by her Serum valarie min B12 below reference range 538593695 R79.89 Fracture o f neck of femur 0829004 S72.001A Dr Rosita SLAUGHTERoes well now Rosacea 301433703 L71.9 Metronidaz ole topicalDr Marielle Rodriguez dermatolog y Hypothyroidism 19370741 E03.9 On synthroid 50mcgs dailyGet labsRenewe d 10/11/2023 Hypoproteinemia 6098147 E88.09 More protein in diet Chronic ki dney disease 790246362 N18.9 On vit dOn calcitriol Sees Dr Rodrigue BETH Anemia 002603758 D64.9 Dr Munoz/Kar Lopez: 02/29/2024 : F/u in 4 monthsOn iron po Essential hypertension 47634818 I10 On losartan 25m dailySees Dr Rodrigue BETH [id number] Melina graf MD [facility] 15 [address] [facility], [address] [place] [address] 04/28/2025 10:51:38 04/28/2025 11:31:04 Adult health examination 711950829 Z00.00 Screening for disorder 180852985 Z13.9 see attached scanned paperwork Screening - NAD 12449698 3 Z13.9 C-scope/Ma mmogram/PA P: Not doing does wellDEXA: Has declined thisNo complaints at this time Get yearly flu shot, get tdap, get shingrix vaccineGet COVID 19 vaccine and its boostersGe t RSV vaccineCan do prevnar #20 RTC in 3 months, do labs, ER if worse, she did verbalize her understand ing of the above Hyperlipidemia 87175555 E78.5 Get labsDiet control, not on any meds Vitamin D deficiency 347 21128 E55.9 Can d/c the vit dSees Dr Rodrigue BETH Chronic ob structive pulmonary disease 37854030 J44.9 Does well, no referrals wanted by her Serum valarie min B12 below reference range 179472228 R79.89 Fracture o f neck of femur 9001392 S72.001A Dr Rosita SLAUGHTERoes well now Rosacea 900799478 L71.9 Metronidaz ole topicalDr Marielle Rodriguez dermatolog y Hypothyroidism 81752148 E03.9 On synthroid 50mcgs dailyGet labsRenewe d 10/11/2023 Hypoproteinemia 3381988 E88.09 More protein in diet Chronic ki dney disease 414304257 N18.9 On vit dOn calcitriol Sees Dr Rodrigue BETH Anemia 194172772 D64.9 Dr Munoz/Kar Lopez: 02/29/2024 : F/u in 4 monthsDr Tammy 01/13/2025 : f/u in 6 monthsOn iron po Essential hypertension 67808791 I10 On losartan 25m dailySees Dr Rodrigue BETH Health Concerns Section Related Observation LastModified by Organization Detai ls LastModified Time None Recorded Concern Status LastModified by Organization Details LastModified Time None Recorded Advance Directives Directive Y: Payers Insurance Date Sequence Insurance Name Policy Number Policy Meeks Covered Member ID Meeks Member ID Guarantor Name 04/25/2025 1 [employer] (MEDICARE REPLACEMENT/ ADVANTAGE - PPO) [id number] Ally Pearson [id number] Ally Pearson Notes Date Note Type Note Provider Name and Address Organization Details Recorded Time 03/11/2024 text/html OV 10/11/2023:Here to establish care [...] now seen Dr Tammy Sosa MD [address], [address], [place], [address], [facility] [employer] [facility] 03/24/2024 18:06:17 06/10/2024 text/html OV 10/11/2023:Here to [...] done her labs Melina Sosa MD [address], [address], [place], [address], [facility] [employer] [facility] 06/27/2024 22:17:43 09/09/2024 text/html OV 10/11/2023:Here to [...] for L eye surgery Melina Sosa MD [address] [place] [address] [address], [facility] [address], [place], [address], [facility] [employer] [facility] 09/09/2024 12:22:29 12/09/2024 text/html OV 10/11/2023:Here to [...] did do the labs Melina Sosa MD [address], [facility] [address], [place], [address], [facility] [employer] [facility] [employer] [facility] 12/09/2024 12:29:04 04/28/2025 text/html OV 10/11/2023:Here to establish care Past [...] Rodrigue BETH, she did do the labs OV 04/28/2025: Here for her f/u apt and [facility] did do the labs and has also seen Dr Munoz, states that she is doing very well today Melina Sosa MD [address], [facility] [address], [place], [address], [employer] [facility] [employer] 04/28/2025 18:08:08 OBGyn Episode No OBEpisode recorded.
[2025-08-25 12:19] LABS: Hematocrit 34.8 % (37.0-47.0); Hemoglobin 11.3 g/dL (12.0-15.0); Immature Granulocyte Percent A 0.2 % (0-0.5); Lymphocytes Absolute Auto 2.20 K/mm3 (0.9-3.2); Mean Corpuscular HGB Conc 32.5 g/dl (32-36); Mean Corpuscular Hemoglobin 31.0 pg (26-34); Mean Corpuscular Volume 95.6 fl (80-100); Nucleated Red Blood Cells Absolute Auto 0.000 K/mm3 (0.0-0.012); Nucleated Red Blood Cells Perc 0.0 % (0.0-0.2); Platelet Count Result 249 k/mm3 (150-375); Red Blood Count 3.64 M/mm3 (4.2-5.4); White Blood Count 6.1 K/mm3 (4.5-10.0)
[2025-08-25 16:29] LABS: Iron 78 ug/dL (37-170)
[2025-08-25 16:30] LABS: Anion Gap 5 mmol/L (4-12); Blood Urea Nitrogen 18 mg/dL (7-17); Calcium 9.2 mg/dL (8.4-10.2); Carbon Dioxide 25 mmol/L (22-30); Chloride 109 mmol/L (98-107); Estimated Glomerular Filt Rate 48; Glucose 72 mg/dL (65-110); Potassium 3.7 mmol/L (3.4-5.0); Sodium 139 mmol/L (137-145)
[2025-08-25 16:41] LABS: Percent Iron Saturation 27 % (20-50)
[2025-08-25 17:11] LABS: Ferritin 86.80 ng/mL (11.1-264)
[2025-08-25 17:43] LABS: Vitamin B12 446.0 pg/mL (239-931)
== END 2025-08-25 12:03 | disposition home or self-care (01) ==
LOC: ANHLAB 12:04
PROVIDERS: PCP Internal Medicine; Visit Provider Internal Medicine Hematology & Oncology
DX: D64.9 Anemia, unspecified (principal)
CPT/HCPCS: 36415; 80048; 82607; 82728; 82746; 83540; 83550; 85025